=== PATIENT | female | born 1970 | race Caucasian/White ===

== ENCOUNTER 2016-10-26 08:49 | Emergency (ER) | payer OTHER ==
[~2016-10-26] VITALS: Ht 162.6 cm; Wt 82.1 kg
[~2016-10-26 08:49] MED LIST: DIFLUCAN150 M1 PO; DILAUDID2 M1 PO; INVOKAMET 50-11 EACH PO; LEVSIN-SL0.125 MG SL; METHYLPREDNISOLO4 M2 PO; PERCOCET 5-3251 EACH PO; ZOFRAN ODT4 M1 SL
--- NOTE | 2016-10-26 09:07 | ED INFLUENZA/URI COMPLAINT ---
History of Present Illness General Chief Complaint: Upper Respiratory Sx/Fever Stated Complaint: NO RELIEF OF BRONCHITIS Source: patient Exam Limitations: no limitations Vital Signs & Intake/Output Vital Signs & Intake/Output Vital Signs Date Time Temp Pulse Resp B/P B/P Pulse O2 O2 Flow FiO2 Mean Ox Delivery Rate 10/26 1604 98.3 89 15 124/74 100 Room Air ED Intake and Output 10/27 0000 0505 1200 Intake Total Output Total Balance Patient 181 lb Weight Allergies Coded Allergies: Benzodiazepines (Severe, SHAKES 10/26/16) metoclopramide (From REGLAN) (Severe, TREMORS 11/30/15) cefuroxime (From CEFTIN) (SHAKES 10/26/16) ciprofloxacin (From CIPRO) (SHAKES 10/26/16) clonazepam (From KLONOPIN) (UNKNOWN 11/30/15) codeine (SHAKES 10/26/16) promethazine (SHAKES 10/26/16) tetanus and diphtheria toxoids (tetanus & diphtheria toxoids) (LOCAL REACTION TO SITE/SWELLING 11/30/15) prochlorperazine (From Compazine) (Severe, UNABLE TO KEEP STILL/HIGH ANXIETY 02/06) meperidine (From Demerol) (ANXIETY 11/30/15) Uncoded Allergies: INHALERS (Severe, SHAKES 10/26/16) CHERRITUSSIN (SHAKES 10/26/16) Reconcile Medications Canagliflozin (Invokana) 300 MG TABLET 1 TAB PO DAILY DIABETES (Reported) Hydromorphone HCl (Dilaudid) 2 MG TABLET 1 TAB PO BIDP PRN pain Mometasone Furoate (Nasonex) 50 MCG SPRAY.PUMP 2 SPRAY NASB DAILY congestion Prednisone 20 MG TABLET 1 TAB PO BID STEROID (Reported) Triage Note: PT STATES THAT SHE HAS HAD COUGH AND BODY ACHES FOR OVER 18 DAYS WAS ON AUGMENTIN FOR 14 DAYS AND IT DIDN'T HELP , WENT BACK TO WALK IN AND THEY STARTED HER ON PREDNISONE. PT STATES THAT SHE JUST DOES NOT FEEL BETTER Triage Nurses Notes Reviewed? yes Onset: Gradual Duration: week(s): (2) Timing: remote history Severity: moderate Severity Numbers: 8 Prior Episodes/Possible Cause: occassional episodes No Modifying Factors: none Associated Symptoms: cough HPI: Patient is a 46-year-old female with history of diabetes, poorly controlled, presenting to the emergency department with chief complaint of upper respiratory congestion, intermittently productive cough of green-yellow sputum has been going on for the past 18 days. She reports that she initially saw one of her physicians who prescribed her a course of Augmentin for 10 days. Symptoms did not improve so she then followed up with a walk-in clinic who put her on another 14 day course of Augmentin. She did not have any breaks in between these 2 courses of antibiotics. Patient denying any nausea or vomiting. No diarrhea. Denies abdominal pain. She reports that her family told her that she was confused last night. Denies any falls. No visual changes. She also reports urge incontinence that has been going on for the past several days. No sick contacts or recent travel. She went back to the urgent care over the past couple days and they put her on some steroids this week. No relief in her symptoms. Still coughing. Positive malaise. Reports tactile funerals and chills. No headaches. (ADAMA ARNDT) Past History Travel History Traveled to [place] past 21 day No Medical History Any Pertinent Medical History? 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 No (ADAMA ARNDT) Review of Systems Review of Systems Constitutional: Reports: chills, fever, malaise. Comments Review of systems: See HPI, All other systems negative. Constitutional, no weight loss HEENT: No visual changes Cardiovascular: No chest pain ,palpitation , orthopnea or ankle swelling Skin, no jaundice no rashes Respiratory: No dyspnea or hemoptysis GI: No nausea no vomiting : No dysuria No hematuria Muscle skeletal: no back pain, no neck pain, Neurologic: No numbness no headaches Psych: No stress anxiety or depression,. Heme/endocrine: No bruising no bleeding no polyuria or polydipsia Immunology: No splenectomy or history of AIDS (ADAMA ARNDT) Physical Exam Physical Exam General Appearance: well developed/nourished, no apparent distress, alert, awake , comfortable Ears, Nose, Throat: nasal congestion Comments: Well-developed well-nourished person in no acute distress HEENT: extraocular motion intact, no nystagmus. Pupils equally round and reactive to light and accommodation. Nose is atraumatic. External auditory canal and Tympanic membranes clear. Pharynx is mildly erythematous, clear nasal discharge bilaterally.. No swelling or edema. Neck: Supple, no lymphadenopathy, normal range of motion without pain or tenderness Back: Nontender, no CVA tenderness. Cardiovascular: Regular rate and rhythms no murmurs rubs or gallops, normal JVP Respiratory: Chest nontender. No respiratory distress.mild wheezing to auscultation bilaterally on the anterior lung person. Diminished on the posterior lung person. Abdomen: Soft, nontender nondistended, no appreciable organomegaly. Normal bowel sounds. No ascites Extremity: No edema, no calf tenderness to palpation, normal and equal pulses. Neuro: Alert oriented x3, motor sensory normal, cranial nerves II through XII grossly intact. Cerebellar testing is unremarkable. Skin: No appreciable rash on exposed skin, skin is warm and dry. Psych: Mood and affect is normal, memory and judgment is normal. Core Measures Severe Sepsis Present: No Septic Shock Present: No (ADAMA ARNDT) Progress Differential Diagnosis: influenza, pneumonia, pharyngitis, sinusitis, DKA, ELECTROLYTE ABNORMALITY, DEHYDRATION, UNCONTROLLED DIABETES Plan of Care: Orders Procedure Date/time Status BASIC METABOLIC PANEL 10/26 1327 Complete Laboratory Tests 10/26/16 1402: Anion Gap 13, Estimated GFR > 60, BUN/Creatinine Ratio 20.0, Glucose 140 H, Calcium 8.6 Diagnostic Imaging: Viewed by Me: Radiology Read. Discussed w/RAD: Radiology Read. CXR Impression: no acute abnormality, no infiltrates, normal size heart, normal mediastinum Initial ED EKG: none Comments: Patient likely having urinary symptoms secondary to spilling glucose into the urine. Uncontrolled diabetes. Patient medicated with fluids on arrival. She does have a positive acetone with a small anion gap. Patient is well-appearing otherwise. She reports that she has several doctors that she follows up with. On repeat evaluation patient feeling much better. Repeat BMP shows there is no longer in anion gap. Patient requesting several doses of pain medication for chronic pain. She also reports the pain medication helps with her sinus pain. Patient will be sent home, she'll follow with a primary care physician, educated on increasing fluids. She was prescribed a steroid nasal spray along with Dilaudid, limited prescription for pain. She'll return for worsening symptoms or concerns. Dr. Mcrae saw and EVALUATE THE PATIENT WELL AND IS AGREEABLE TO PLAN. (ADAMA ARNDT) Departure Departure Time of Disposition: 150 Disposition: HOME OR SELF CARE Condition: Stable Clinical Impression Primary Impression: Sinusitis Qualifiers: Sinusitis location: unspecified location Chronicity: subacute Qualified Code: J01.90 - Acute sinusitis, unspecified Secondary Impressions: Uncontrolled diabetes mellitus Qualifiers: Diabetes mellitus type: other specified (including [place]) Diabetes mellitus complication status: with unspecified complications Diabetes mellitus intermediate card tender insulin use: unspecified care home insulin use status Qualified Codes: E13.8 - Other specified diabetes mellitus with unspecified complications; E13.65 - Other specified diabetes mellitus with hyperglycemia Referrals: RONIT KANG MD (PCP/Family) Additional Instructions: Follow-up with your primary care physician call to make an appointment. Increase fluids. Take Nasonex as prescribed help with congestion. Take daily allergy medication [id number]. Continue diabetic medication. follow with her primary care physician. Return for worsening symptoms or concerns. Departure Forms: Customer Survey General Discharge Information Prescriptions: Current Visit Scripts Hydromorphone HCl (Dilaudid) 1 TAB PO BIDP PRN pain #10 TAB Mometasone Furoate (Nasonex) 2 SPRAY NASB DAILY #1 INHAL (ADAMA ARNDT) PA/SOAP DRIER TENDER Co-Sign Statement Statement: ED Attending supervision documentation- [X] I saw and evaluated the patient. I have also reviewed all the pertinent lab results and diagnostic results. I agree with the findings and the plan of care as documented in the PA's/SOAP DRIER TENDER's documentation. [X] I have reviewed the ED Record and agree with the PA's/SOAP DRIER TENDER's documentation. [] Additions or exceptions (if any) to the PAs/SOAP DRIER TENDER's note and plan are summarized below: [] (STACY ASTUDILLO,BRENDEN) Current Visit Scripts Hydromorphone HCl (Dilaudid) 1 TAB PO BIDP PRN pain #10 TAB Mometasone Furoate (Nasonex) 2 SPRAY NASB DAILY #1 INHAL
[2016-10-26] MEDS ORDERED: PREDNISONE20 M1 PO (09:58)
[2016-10-26] MEDS ORDERED: INVOKANA300 M1 PO (10:02)
[2016-10-26 10:33] LABS: ABSOLUTE BASOPHIL COUNT 0 /CUMM (0.0-0.2); ABSOLUTE EOSINOPHIL COUNT 0 /CUMM (0.0-0.7); ABSOLUTE GRANULOCYTE CT 8.8 /CUMM (1.4-6.5); ABSOLUTE LYMPH COUNT 1.1 /CUMM (1.2-3.4); ABSOLUTE MONOCYTE COUNT 0.8 /CUMM (0.10-0.60); BASOPHIL % 0.3 % (0.0-2.0); EOSINOPHIL % 0.1 % (0-5); GRANULOCYTE % 81.8 % (42.2-75.2); HEMATOCRIT 41.4 % (37-47); MEAN CORPUSCULAR HGB 27.9 PG (27.0-31.0); MEAN CORPUSCULAR HGB CONC 34.1 G/DL (33.0-37.0); MEAN PLATELET VOLUME 8.4 FL (7.4-10.4); PLATELET COUNT 352 /CUMM (130-400); RBC DISTRIBUTION WIDTH 13.6 % (11.5-14.5); RED BLOOD CELL CT 5.05 /CUMM (4.20-5.40); WHITE BLOOD CELL COUNT 10.7 /CUMM (4.8-10.8)
--- NOTE | 2016-10-26 11:36 | RADIOLOGY REPORT ---
EXAMINATION: XR CHEST CLINICAL INFORMATION: Cough. COMPARISON: None TECHNIQUE: 2 views of the chest were obtained. FINDINGS: Lungs are well expanded and clear. The trachea is midline position. Cardiac silhouette is normal in size. The mediastinal and hilar contours are normal. There is no pneumothorax or pleural effusion. There is mild dextrocurvature of the degenerated thoracic spine. IMPRESSION: No evidence of pneumonia. No acute cardiopulmonary findings.
[2016-10-26] MEDS ORDERED: DILAUDID2 M1 PO (15:23)
[2016-10-26] MEDS ORDERED: NASONEX17 GM NASB (15:23)
[2016-10-26 16:04] VITALS: BP 124/74
[2016-10-27] MEDS ORDERED: DILAUDID2 M1 PO (16:56)
[2016-10-27] MEDS ORDERED: ZOFRAN ODT4 M1 SL (16:59)
== END 2016-10-26 16:07 ==
LOC: ERH 08:49
PROVIDERS: Physician Assistant
DX: J32.9 Chronic sinusitis, unspecified (principal); E11.9 Type 2 diabetes mellitus without complications
CPT/HCPCS: 81003; 81025; 96360; 96372; 96374; 96376; J1815

== ENCOUNTER 2016-10-27 09:33 | Emergency (ER) | payer OTHER ==
[~2016-10-27] VITALS: Ht 165.1 cm; Wt 82.1 kg
[~2016-10-27 09:33] MED LIST changes: +INVOKANA300 M1 PO; +NASONEX17 GM NASB; +PREDNISONE20 M1 PO
[2016-10-27 12:32] LABS: ABSOLUTE BASOPHIL COUNT 0.1 /CUMM (0.0-0.2); ABSOLUTE EOSINOPHIL COUNT 0.2 /CUMM (0.0-0.7); ABSOLUTE GRANULOCYTE CT 4.4 /CUMM (1.4-6.5); ABSOLUTE LYMPH COUNT 2.4 /CUMM (1.2-3.4); ABSOLUTE MONOCYTE COUNT 1.2 /CUMM (0.10-0.60); BASOPHIL % 0.6 % (0.0-2.0); EOSINOPHIL % 2.9 % (0-5); GRANULOCYTE % 53.6 % (42.2-75.2); MEAN CORPUSCULAR HGB 27.9 PG (27.0-31.0); MEAN CORPUSCULAR HGB CONC 33.6 G/DL (33.0-37.0); MEAN PLATELET VOLUME 8.7 FL (7.4-10.4); PLATELET COUNT 300 /CUMM (130-400); RBC DISTRIBUTION WIDTH 13.4 % (11.5-14.5); WHITE BLOOD CELL COUNT 8.3 /CUMM (4.8-10.8)
--- NOTE | 2016-10-27 13:39 | ED GI/GU/ABDOMINAL COMPLAINT ---
History of Present Illness General Chief Complaint: Abdominal Pain/Flank Pain Stated Complaint: SEEN HERE YESTERDAY/ STILL NOT FEELING WELL ABD PA Source: patient Exam Limitations: no limitations Allergies Coded Allergies: Benzodiazepines (Severe, SHAKES 10/26/16) metoclopramide (From REGLAN) (Severe, TREMORS, SI, FEELING LIKE SHE WANTED TO CUT HER SKIN & RUN 10/27/16) albuterol (SHAKES 10/27/16) cefuroxime (From CEFTIN) (SHAKES 10/26/16) ciprofloxacin (From CIPRO) (SHAKES 10/26/16) clonazepam (From KLONOPIN) (SHAKES 10/27/16) codeine ([facility] 10/26/16) guaifenesin (From CHERATUSSIN AC) ([facility] 10/27/16) promethazine ([facility] 10/26/16) tetanus and diphtheria toxoids (tetanus & diphtheria toxoids) (LOCAL REACTION TO SITE/SWELLING 11/30/15) prochlorperazine (From Compazine) (Severe, UNABLE TO KEEP STILL/HIGH ANXIETY 02/06) meperidine (From Demerol) (ANXIETY 11/30/15) Triage Note: TRIAGE:l 46 Y/O FEMALE RETURNS TODAY AFTER EVAL HERE YESTERDAY. DIAGNOSED WITH KETOACIDOSIS. REPORTS PAIN 50/10 - STABBING LIKE LAST NIGHT. "MY PANCREAS HURTS, TOO." HISTORY OF DIABETES "FROM THE IN VITRO". AFEBRILE IN TRIAGE. Triage Nurses Notes Reviewed? yes ? N Is pt currently ? No HPI: This patient is a 46-year-old female with past medical history including diabetes who presented to the emergency department today for evaluation of back pain and abdominal pain. This patient was seen here in the emergency department yesterday and diagnosed with diabetic ketoacidosis. She was ultimately sent home. The patient reported that she took the prescribed Dilaudid tablets before she went to bed last night. The patient reported that she had excruciating, "50 out of 10," pain to her lower back which woke her up out of sleep. The pain is located across her lumbar spine and radiates up to her thoracic region. The pain or straight through to her abdomen to the region of the umbilicus. She reported that sometimes the pain moves over to the upper left quadrant. She reported nausea, but no vomiting. The patient also reported that she did notice some blood in her urine this morning. The patient denied any fevers or chills. No chest pain or difficulty breathing. The patient reported that years ago she was diagnosed with a cyst on her right ovary that was, "the size of a grapefruit." This was found incidentally on MRI. She was told to follow up with her TOLL GATE TENDER, but when they didn't ultrasound, they did not see anything. The patient also had a tubal ligation reversal done on the right. She reported that she does have chronic pain in this right groin region. (AMALIA CORDOVA,LAURENCE) Vital Signs & Intake/Output Vital Signs & Intake/Output Vital Signs Date Time Temp Pulse Resp B/P B/P Pulse O2 O2 Flow FiO2 Mean Ox Delivery Rate 10/27 1622 98.3 88 16 136/78 95 Room Air ED Intake and Output 10/28 0000 10/27 1200 Intake Total 1000 Output Total Balance 1000 Intake, IV 1000 Patient 181 lb Weight Weight Reported by Patient Measurement Method Reconcile Medications Canagliflozin (Invokana) 300 MG TABLET 1 TAB PO DAILY DIABETES (Reported) Hydromorphone HCl (Dilaudid) 2 MG TABLET 1 TAB PO BIDP PRN pain Hydromorphone HCl (Dilaudid) 2 MG TABLET 1 TAB PO BIDP PRN pain Mometasone Furoate (Nasonex) 50 MCG SPRAY.PUMP 2 SPRAY NASB DAILY congestion Ondansetron (Zofran Odt) 4 MG TAB.RAPDIS 1 TAB SL TID PRN nausea Prednisone 20 MG TABLET 1 TAB PO BID STEROID (Reported) (ZULEIKA JOHNSON MD) Past History Travel History Traveled to [place] past 21 day No Medical History Any Pertinent Medical History? 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 No (LAURENCE HOLLAND PA-C) Review of Systems Review of Systems Constitutional: Reports: no symptoms. EENTM: Reports: no symptoms. Respiratory: Reports: no symptoms. Cardiovascular: Reports: no symptoms. GI: Reports: see HPI. Genitourinary: Reports: see HPI. Musculoskeletal: Reports: no symptoms. Skin: Reports: no symptoms. Neurological/Psychological: Reports: no symptoms. All Other Systems: Reviewed and Negative (LAURENCE HOLLAND PA-C) Physical Exam Physical Exam Gastrointestinal: normal bowel sounds, soft, no organomegaly, NONDISTENDED. tENDERNESS TO PALPATION IN THE EPIGASTRIC REGION AND LEFT UPPER QUADRANT. nEGATIVE [place] SIGN. NO mCbURNEY'S POINT TENDERNESS. nEGATIVE rOVSING SIGN. nO MASSES OR HERNIAS APPRECIATED Comments: Well-developed well-nourished person in no acute distress HEENT: Normal EENT exam, head normocephalic, moist mucous membranes Pupils equally round and reactive to light. Neck: Supple, no lymphadenopathy Back: Normal inspection. Bilateral CVA tenderness. No midline tenderness Cardiovascular: Regular rate and rhythm with no murmurs, rubs, or gallops Respiratory: No respiratory distress. Breath sounds clear to auscultation bilaterally with no wheezes, rales, rhonchi Extremity: Nnormal and equal pulses. Neuro: Alert oriented x3, cranial nerves II through XII grossly intact. Skin: No appreciable rash on exposed skin, skin is warm and dry. Psych: Mood and affect is normal Core Measures ACS in differential dx? No Severe Sepsis Present: No Septic Shock Present: No (LAURENCE HOLLAND PA-C) Progress Differential Diagnosis: AAA, AMI, appendicitis, biliary colic, bowel obstruction , colon cancer, cholecystitis, diverticulitis, ectopic , endometritis, gastritis, hepatitis, ischemic bowel, inflamm bowel dis, intrauterine , kidney stone, ovarian cyst, ovarian torsion, pancreatitis, PID/cervicitis, PUD/ GERD, perforated viscous, threatened AB, UTI/pyelo Plan of Care: Orders Procedure Date/time Status DIRECT BILIRUBIN 10/27 1204 Complete AMYLASE 10/27 1204 Complete CULTURE,URINE 10/27 1147 Active URINE 10/27 1147 Complete URINE DRUG SCREEN FOR ER ONLY 10/27 1043 Complete URINALYSIS 10/27 1043 Complete SERUM OSMOLALITY 10/27 1043 Complete LIPASE 10/27 1043 Complete COMPREHENSIVE METABOLIC PANEL 10/27 1043 Complete CBC WITHOUT DIFFERENTIAL 10/27 1043 Complete ACETONE 10/27 1043 Complete Laboratory Tests 10/27/16 1204: Direct Bilirubin Cancelled, Amylase Cancelled 10/27/16 1204: Anion Gap 13, Estimated GFR > 60, BUN/Creatinine Ratio 16.0, Glucose 154 H, Serum Osmolality 289, Calcium 8.7, Total Bilirubin 0.6, Direct Bilirubin 0.3, AST 62 H, ALT 62 H, Alkaline Phosphatase 148 H, Total Protein 6.8, Albumin 3.7, Globulin 3.1, Albumin/Globulin Ratio 1.2, Amylase 39, Lipase 55, CBC w Diff NO MAN DIFF REQ, RBC 4.70, MCV 83.0, MCH 27.9, RDW 13.4, MPV 8.7, Gran % 53.6, Lymphocytes % 28.5, Monocytes % 14.4 H, Eosinophils % 2.9, Basophils % 0.6, Absolute Granulocytes 4.4, Absolute Lymphocytes 2.4, Absolute Monocytes 1.2 H, Absolute Eosinophils 0.2, Absolute Basophils 0.1, PUBS MCHC 33.6, Acetone Level NEGATIVE 10/27/16 1132: Urine Test NEGATIVE 10/27/16 1132: Urine Opiates Screen 1245.00, Methadone Screen < 40, Barbiturate Screen < 60, Ur Phencyclidine Scrn < 6.00, Amphetamines Screen < 100, U Benzodiazepines Scrn < 85, Urine Cocaine Screen < 50, Urine Cannabis Screen < 5.00, Urine Color YEL, Urine Clarity CLEAR, Urine pH 6.0, Ur Specific Kirby 1.020, Urine Protein NEG, Urine Ketones 40 H, Urine Nitrite NEG, Urine Bilirubin NEG, Urine Urobilinogen 0.2, Ur Leukocyte Esterase NEG, Ur Microscopic SEDIMENT EXAMINED, Urine RBC 15- 25 H, Urine WBC RARE, Ur Epithelial Cells FEW, Urine Hemoglobin MOD H, Urine Glucose >=1000 H Microbiology 10/27 1147 URINE ROUT: Urine Culture - RECD Diagnostic Imaging: Viewed by Me: CT Scan. Discussed w/RAD: CT Scan. Radiology Impression: PATIENT: KASHMIR MARTÍNEZ PRESENT AGE: 46 PATIENT ACCOUNT NO: [id number] : 68 LOCATION: [facility] ORDERING PHYSICIAN: LAURENCE HOLLAND PA-C SERVICE DATE: 10/27/16 EXAM TYPE: CAT - CT ABD & PELVIS W IV CONTRAST EXAMINATION: CT ABDOMEN AND PELVIS WITH CONTRAST CLINICAL INFORMATION: Right-sided pelvic mass. COMPARISON: Previous CT scans most recent November 2015. TECHNIQUE: Multidetector volumetric imaging was performed of the abdomen and pelvis before and after the IV administration of 94 mL of Optiray 320 intravenous contrast. Sagittal and coronal reformatted images were obtained on the technologist's workstation. DLP: 985 mGy-cm FINDINGS: LUNG BASES: The visualized lung bases are unremarkable. LIVER, GALLBLADDER, AND BILIARY TREE: The liver is normal in size, shape, and attenuation. There is a small 4 mm low-attenuation lesion in the lateral segment of the left lobe of the liver, axial image 30 series 2. This is stable from previous exams and therefore probably benign. No other focal liver lesion is seen. No intrahepatic or extrahepatic biliary duct dilatation is seen. The gallbladder has been removed. PANCREAS: Unremarkable. SPLEEN: Unremarkable. ADRENAL GLANDS: Unremarkable. KIDNEYS AND URETERS: The kidneys are normal in size, shape, and attenuation. No hydronephrosis, hydroureter, or calculi seen. No perinephric stranding. BLADDER: Unremarkable. GASTROINTESTINAL TRACT: The small and large bowel are unremarkable. The appendix is unremarkable. ABDOMINAL WALL: There is a small umbilical hernia containing fat. There is diastasis of the lower rectus muscles anterior to the bladder. LYMPH NODES: No enlarged lymph nodes are seen. There is no ascites. VASCULAR: The abdominal aorta is normal in caliber. PELVIC VISCERA: The uterus is located to the right of midline. This is similar to previous exams. No pelvic mass is seen. OSSEOUS STRUCTURES: Unremarkable. IMPRESSION: No pelvic mass seen. The uterus is located to the right of midline. This is similar to previous exams. DICTATED BY: TAMEKA BANDA MD DATE/TIME DICTATED:10/27/161530 CELL EFFICIENCY SUPERVISOR:SARAH DATE/ TIME TRANSCRIBED:10/27/161530 CONFIDENTIAL, DO NOT COPY WITHOUT APPROPRIATE AUTHORIZATION. <Electronically signed in Other Vendor System> SIGNED BY: TAMEKA BANDA MD 10/27/16 1558 Initial ED EKG: none (AMALIA CORDOVA,LAURENCE) Departure Departure Disposition: HOME OR SELF CARE Condition: Stable Clinical Impression Primary Impression: Abdominal pain Qualifiers: Abdominal location: generalized Qualified Code: R10.84 - Generalized abdominal pain Referrals: WALE ASTUDILLO,JACI DUGGAN MD,GERALDO KANG MD,[place] (PCP/Family) Additional Instructions: Take medication for pain as prescribed. Please rest and stay hydrated. Follow- up with the card player whose information has been provided to you in this packet. You have also been given the name of a urologist should you need follow-up. Return for any worsening symptoms or concerns. Departure Forms: Customer Survey General Discharge Information Prescriptions: Current Visit Scripts Hydromorphone HCl (Dilaudid) 1 TAB PO BIDP PRN pain #4 TAB Ondansetron (Zofran Odt) 1 TAB SL TID PRN nausea #10 TAB (LAURENCE HOLLAND PA-C) PA/RESIDENTIAL SALES MANAGER Co-Sign Statement Statement: ED Attending supervision documentation- I saw and evaluated the patient. I have also reviewed all the pertinent lab results and diagnostic results. I agree with the findings and the plan of care as documented in the PA's/RESIDENTIAL SALES MANAGER's documentation. X I have reviewed the ED Record and agree with the PA's/RESIDENTIAL SALES MANAGER's documentation. [] Additions or exceptions (if any) to the PAs/RESIDENTIAL SALES MANAGER's note and plan are summarized below: [] (ELIZABETH ASTUDILLO,ZULEIKA)
--- NOTE | 2016-10-27 15:58 | CT SCAN REPORT ---
EXAMINATION: CT ABDOMEN AND PELVIS WITH CONTRAST CLINICAL INFORMATION: Right-sided pelvic mass. COMPARISON: Previous CT scans most recent November 2015. TECHNIQUE: Multidetector volumetric imaging was performed of the abdomen and pelvis before and after the IV administration of 94 mL of Optiray 320 intravenous contrast. Sagittal and coronal reformatted images were obtained on the technologist's workstation. DLP: 985 mGy-cm FINDINGS: LUNG BASES: The visualized lung bases are unremarkable. LIVER, GALLBLADDER, AND BILIARY TREE: The liver is normal in size, shape, and attenuation. There is a small 4 mm low-attenuation lesion in the lateral segment of the left lobe of the liver, axial image 30 series 2. This is stable from previous exams and therefore probably benign. No other focal liver lesion is seen. No intrahepatic or extrahepatic biliary duct dilatation is seen. The gallbladder has been removed. PANCREAS: Unremarkable. SPLEEN: Unremarkable. ADRENAL GLANDS: Unremarkable. KIDNEYS AND URETERS: The kidneys are normal in size, shape, and attenuation. No hydronephrosis, hydroureter, or calculi seen. No perinephric stranding. BLADDER: Unremarkable. GASTROINTESTINAL TRACT: The small and large bowel are unremarkable. The appendix is unremarkable. ABDOMINAL WALL: There is a small umbilical hernia containing fat. There is diastasis of the lower rectus muscles anterior to the bladder. LYMPH NODES: No enlarged lymph nodes are seen. There is no ascites. VASCULAR: The abdominal aorta is normal in caliber. PELVIC VISCERA: The uterus is located to the right of midline. This is similar to previous exams. No pelvic mass is seen. OSSEOUS STRUCTURES: Unremarkable. IMPRESSION: No pelvic mass seen. The uterus is located to the right of midline. This is similar to previous exams.
[2016-10-27 16:22] VITALS: BP 136/78
[2016-10-27] MEDS ORDERED: DILAUDID2 M1 PO (16:56)
[2016-10-27] MEDS ORDERED: ZOFRAN ODT4 M1 SL (16:59)
== END 2016-10-27 17:13 ==
LOC: ERH 09:33
PROVIDERS: Physician Assistant
DX: R10.13 Epigastric pain (principal); R10.12 Left upper quadrant pain; M54.9 Dorsalgia, unspecified
CPT/HCPCS: 74177; 80307; 81001; 81025; 87086; 96374; 96375; 96376; J2405

== ENCOUNTER 2016-12-12 09:46 | Emergency (ER) | payer OTHER ==
[~2016-12-12] VITALS: Ht 165.1 cm; Wt 83.9 kg
--- NOTE | 2016-12-12 10:11 | ED GENERAL ADULT ---
History of Present Illness General Chief Complaint: Lower Extremity Problems Stated Complaint: SWOLLEN FEET X 3 WEEKS,PAIN IN LEGS,CP Source: patient, old records Exam Limitations: no limitations Vital Signs & Intake/Output Vital Signs & Intake/Output ED Intake and Output 12/13 0000 12/12 1200 Intake Total 0 Output Total Balance 0 Intake, Oral 0 Patient 185 lb Weight Weight Reported by Patient Measurement Method Allergies Coded Allergies: Benzodiazepines (Severe, SHAKES 10/26/16) chlorzoxazone (From LORZONE) (Severe, RESTLESSNESS 12/12/16) cyclobenzaprine (From FLEXERIL) (Severe, RESTLESSNESS 12/12/16) metoclopramide (From REGLAN) (Severe, TREMORS, SI, FEELING LIKE SHE WANTED TO CUT HER SKIN & RUN 10/27/16) carisoprodol (From SOMA) (Intermediate, RESTLESSNESS 12/12/16) albuterol (SHAKES 10/27/16) cefuroxime (From CEFTIN) (SHAKES 10/26/16) ciprofloxacin (From CIPRO) (SHAKES 10/26/16) clonazepam (From KLONOPIN) (SHAKES 10/27/16) codeine (SHAKES 10/26/16) guaifenesin (From CHERATUSSIN AC) (SHAKES 10/27/16) promethazine (SHAKES 10/26/16) tetanus and diphtheria toxoids (tetanus & diphtheria toxoids) (LOCAL REACTION TO SITE/SWELLING 11/30/15) prochlorperazine (From Compazine) (Severe, UNABLE TO KEEP STILL/HIGH ANXIETY 02/06) meperidine (From Demerol) (ANXIETY 11/30/15) Reconcile Medications Canagliflozin (Invokana) 300 MG TABLET 1 TAB PO DAILY DIABETES (Reported) Hydromorphone HCl (Dilaudid) 2 MG TABLET 1 TAB PO BIDP PRN pain Hydromorphone HCl (Dilaudid) 2 MG TABLET 1 TAB PO BIDP PRN pain Insulin Aspart, Recombinant (Novolog Flexpen) (Unknown Strength) INSULN.PEN ( Unknown Dose) SC SEE SLIDING SCALE DIABETES (Reported) Insulin Degludec (Tresiba Flextouch U-200) 200 UNIT/ML (3 ML) INSULN.PEN 30 U SC QPM DIABETES (Reported) Mometasone Furoate (Nasonex) 50 MCG SPRAY.PUMP 2 SPRAY NASB DAILY congestion Ondansetron (Zofran Odt) 4 MG TAB.RAPDIS 1 TAB SL TID PRN nausea Oxycodone HCl/Acetaminophen (Oxycodone-Acetaminophen 5-325) 5 MG-325 MG TABLET 1 TAB PO BIDP PRN PAIN (Reported) Prednisone 20 MG TABLET 1 TAB PO BID STEROID (Reported) Triage Note: PT TO ED FOR MULTIPLE COMPLAINTS: HEADACHE, BILATERAL LEG SWELLING, CONFUSION, INTERMITTENT WEAKNESS, R ARM INTERMITTENT NUMBNESS, WORSENING CHRONIC PAIN, RADIATING CALF PAIN AND "MY BACK PAIN ISN'T CONTROLLED WITH MY PERCOCET AND I DIDN'T TAKE ANYTHING TODAY BECAUSE I KNEW I WOULD GET PAIN MEDS HERE" Triage Nurses Notes Reviewed? yes Onset: Gradual Duration: week(s): (3), constant Timing: recent history Injury Environment: home Severity: moderate, severe Severity Numbers: 8 No Modifying Factors: none Associated Symptoms: denies HPI: 46 Year old female with history of diabetes presents to ER for evaluation complain multiple complaints. She states for the past 3 weeks she has had bilateral feet swelling associated with aching dull pain radiating into her calfs, chest pain dyspnea with exertion headaches dizziness. She initially saw her primary care physician within the symptoms began who told her it was not neuropathy. She has been keeping them elevated however states that nothing is helping with the swelling. She has been on diuretics in the past however states did not help. No recent travel or immobility no rashes to her legs no fever no chills. The patient is prescribed Percocet which she states she does not like to take for her chronic back pain. She states the only thing that has helped her in the past with this exacerbation is Dilaudid (ELIDA VICTORIA) Past History Travel History Traveled to [place] past 21 day No Medical History Any Pertinent Medical History? 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 No (ELIDA VICTORIA) Review of Systems Review of Systems Constitutional: Reports: see HPI. All Other Systems: Reviewed and Negative Comments Review of systems: See HPI, All other systems negative. Constitutional, no chills no fever, no malaise HEENT: No visual changes no sore throat no congestion Cardiovascular: No chest pain , no palpitation Skin: no rashes, no change in skin Respiratory: No dyspnea no cough no sputum GI: No nausea no vomiting, no diarrhea, : No dysuria Muscle skeletal: No joint pain, no joint swelling, no back pain, no neck pain, Neurologic: No numbness no headache Psych: No stress Heme/endocrine: No bruising Immunology: No lymphadenopathy (ELIDA VICTORIA) Physical Exam Physical Exam General Appearance: well developed/nourished, no apparent distress, alert, awake Comments: Well-developed well-nourished person in no acute distress HEENT: Normal EENT exam; PERRL, EOMI, HEAD is atraumatic. moist mucous membranes. Neck: Supple,, normal range of motion Back: Nontender, ull range of motion Cardiovascular: Regular rate and rhythms no murmurs rubs Respiratory: No respiratory distress. Patient speaking in full complete sentences. Breath sounds clear to auscultation bilaterally: NO W/R/R Abdomen: Soft, nontender nondistended, no appreciable organomegaly. Normal bowel sounds. No rebound/guarding, No ascites. Extremity: No edema, neg homans, sign, no ecchymosis, full range of motion of extremities, normal and equal pulses bilaterally, 5 out of 5 strength noted to bilateral upper and lower extremities Neuro: Alert oriented x3, motor sensory normal, There were no obvious focal neurologic abnormalities. Skin: No appreciable rash on exposed skin, skin is warm and dry. Psych: Mood and affect is normal, memory and judgment is normal. Core Measures ACS in differential dx? No CVA/TIA Diagnosis: No Severe Sepsis Present: No Septic Shock Present: No (ELIDA VICTORIA) Progress Differential Diagnoses I considered the following diagnoses in my evaluation of the patient: depedent edema, dvt, ken, dehydration, chf, Plan of Care: Orders Procedure Date/time Status Consistent Carbohydrate 1 12/12 D Active COMPREHENSIVE METABOLIC PANEL 12/12 1043 Complete CBC WITHOUT DIFFERENTIAL 12/12 1043 Complete B-TYPE NATRIURETIC PEP (BNP) 12/12 1043 Complete EKG 12/12 0947 Active Laboratory Tests 12/12/16 1101: Anion Gap 11, Estimated GFR > 60, BUN/Creatinine Ratio 8.0, Glucose 64 L, Calcium 9.3, Total Bilirubin 0.5, AST 52 H, ALT 49, Alkaline Phosphatase 128 H , [id number] Pept 135 H, Total Protein 6.8, Albumin 3.7, Globulin 3.1, Albumin/Globulin Ratio 1.2, CBC w Diff NO MAN DIFF REQ, RBC 4.39, MCV 83.8, MCH 27.5, RDW 13.7, MPV 7.6, Gran % 42.5, Lymphocytes % 43.4, Monocytes % 11.1 H, Eosinophils % 2.3, Basophils % 0.7, Absolute Granulocytes 3.5, Absolute Lymphocytes 3.6 H, Absolute Monocytes 0.9 H, Absolute Eosinophils 0.2, Absolute Basophils 0.1, PUBS MCHC 32.8 L Patient clinically appears well she is ambulatory to room 9 with steady gait in no apparent distress labs ordered case discussed with Dr. Mcrae. Symptoms at this time are not consistent with DVT advise close follow-up with her primary care I discussed with the patient at length all of their results. I had an extensive conversation regarding need for close follow up with their primary care physician this week as well as return precautions. I answered all of their questions, they feel comfortable with the plan and follow-up care. The patient is declining any medications to go home with advise she continue taking her Percocet as prescribed follow up with her primary care (ELIDA VICTORIA) Initial ED EKG: normal intervals, normal p-waves, normal QRS complex, normal sinus rhythm (ELIDA VICTORIA) Departure Departure Time of Disposition: 1143 Disposition: HOME OR SELF CARE Condition: Stable Clinical Impression Primary Impression: Dependent edema Referrals: RONIT KANG MD (PCP/Family) Additional Instructions: follow up with your pmd this week. keep legs elevated. take your pain medication as prescribed. return with any concerns Departure Forms: Customer Survey General Discharge Information (ELIDA VICTORIA) PA/BUSINESS TRANSFORMATION ANALYST Co-Sign Statement Statement: ED Attending supervision documentation- [] I saw and evaluated the patient. I have also reviewed all the pertinent lab results and diagnostic results. I agree with the findings and the plan of care as documented in the PA's/BUSINESS TRANSFORMATION ANALYST's documentation. [X] I have reviewed the ED Record and agree with the PA's/BUSINESS TRANSFORMATION ANALYST's documentation. [] Additions or exceptions (if any) to the PAs/BUSINESS TRANSFORMATION ANALYST's note and plan are summarized below: [] (STACY ASTUDILLO,BRENDEN) Critical Care Note Critical Care Note Critical Care Time: non-applicable (TAI VILLALOBOS,ELIDA)
[2016-12-12] MEDS ORDERED: TRESIBA FL200 UNIT/1 SC (10:25)
[2016-12-12] MEDS ORDERED: NOVOLOG FL100 UNIT/1 SC (10:26)
[2016-12-12] MEDS ORDERED: OXYCODONE-ACET1 EACH PO (10:28)
[2016-12-12 11:08] LABS: ABSOLUTE BASOPHIL COUNT 0.1 /CUMM (0.0-0.2); ABSOLUTE EOSINOPHIL COUNT 0.2 /CUMM (0.0-0.7); ABSOLUTE GRANULOCYTE CT 3.5 /CUMM (1.4-6.5); ABSOLUTE LYMPH COUNT 3.6 /CUMM (1.2-3.4); ABSOLUTE MONOCYTE COUNT 0.9 /CUMM (0.10-0.60); BASOPHIL % 0.7 % (0.0-2.0); EOSINOPHIL % 2.3 % (0-5); GRANULOCYTE % 42.5 % (42.2-75.2); HEMATOCRIT 36.8 % (37-47); MEAN CORPUSCULAR HGB 27.5 PG (27.0-31.0); MEAN CORPUSCULAR HGB CONC 32.8 G/DL (33.0-37.0); MEAN CORPUSCULAR VOLUME 83.8 FL (81.0-99.0); MEAN PLATELET VOLUME 7.6 FL (7.4-10.4); PLATELET COUNT 336 /CUMM (130-400); RBC DISTRIBUTION WIDTH 13.7 % (11.5-14.5); RED BLOOD CELL CT 4.39 /CUMM (4.20-5.40); WHITE BLOOD CELL COUNT 8.2 /CUMM (4.8-10.8)
[2016-12-12 11:47] VITALS: BP 126/85
== END 2016-12-12 11:48 ==
LOC: ERH 09:46
PROVIDERS: Physician Assistant Medical
DX: R60.0 Localized edema (principal); R07.9 Chest pain, unspecified; R51 Headache; R42 Dizziness and giddiness
CPT/HCPCS: 93005; 93010; J3101

== ENCOUNTER 2017-06-18 15:14 | Observation (INO) | payer OTHER ==
[~2017-06-18] VITALS: Ht 167.6 cm; Wt 91.6 kg
[~2017-06-18 15:14] MED LIST changes: +HYCET 7.5 MG-3473 ML PO; +METFORMIN HCL1000 M1 PO; +NOVOLOG FL100 UNIT/1 SC; +OXYCODONE-ACET1 EACH PO; +PERCOCET 10-321 EACH PO; +PROTONIX40 M3 PO; +TRESIBA FL200 UNIT/1 SC; +ZOFRAN ODT8 M1 PO
[2017-06-18 16:17] LABS: ABSOLUTE BASOPHIL COUNT 0 /CUMM (0.0-0.2); ABSOLUTE EOSINOPHIL COUNT 0.1 /CUMM (0.0-0.7); ABSOLUTE GRANULOCYTE CT 4.2 /CUMM (1.4-6.5); ABSOLUTE LYMPH COUNT 2.7 /CUMM (1.2-3.4); ABSOLUTE MONOCYTE COUNT 0.5 /CUMM (0.10-0.60); BASOPHIL % 0.6 % (0.0-2.0); EOSINOPHIL % 1.1 % (0-5); HEMATOCRIT 38.6 % (37-47); MEAN CORPUSCULAR HGB 26.4 PG (27.0-31.0); MEAN CORPUSCULAR HGB CONC 31.9 G/DL (33.0-37.0); MEAN CORPUSCULAR VOLUME 82.8 FL (81.0-99.0); MEAN PLATELET VOLUME 8.2 FL (7.4-10.4); PLATELET COUNT 447 /CUMM (130-400); RBC DISTRIBUTION WIDTH 15.6 % (11.5-14.5); RED BLOOD CELL CT 4.66 /CUMM (4.20-5.40); WHITE BLOOD CELL COUNT 7.6 /CUMM (4.8-10.8)
--- NOTE | 2017-06-18 19:14 | ED GI/GU/ABDOMINAL COMPLAINT ---
History of Present Illness General Chief Complaint: General Adult Stated Complaint: SIB DR SALMERON FOR ADMISSION FOR ENDOSCOPY Source: patient, family, old records Exam Limitations: no limitations Vital Signs & Intake/Output Vital Signs & Intake/Output Vital Signs Date Time Temp Pulse Resp B/P B/P Pulse O2 O2 Flow FiO2 Mean Ox Delivery Rate 06/18 1555 98.6 82 16 133/84 98 Room Air Allergies Coded Allergies: Benzodiazepines (Severe, SHAKES 10/26/16) chlorzoxazone (From LORZONE) (Severe, RESTLESSNESS 12/12/16) cyclobenzaprine (From FLEXERIL) (Severe, RESTLESSNESS 12/12/16) metoclopramide (From REGLAN) (Severe, TREMORS, SI, FEELING LIKE SHE WANTED TO CUT HER SKIN & RUN 10/27/16) carisoprodol (From SOMA) (Intermediate, RESTLESSNESS 12/12/16) albuterol (SHAKES 10/27/16) cefuroxime (From CEFTIN) (SHAKES 10/26/16) ciprofloxacin (From CIPRO) (SHAKES 10/26/16) clonazepam (From KLONOPIN) (SHAKES 10/27/16) codeine (SHAKES 10/26/16) guaifenesin (From CHERATUSSIN AC) (SHAKES 10/27/16) promethazine (SHAKES 10/26/16) tetanus and diphtheria toxoids (tetanus & diphtheria toxoids) (LOCAL REACTION TO SITE/SWELLING 11/30/15) prochlorperazine (From Compazine) (Severe, UNABLE TO KEEP STILL/HIGH ANXIETY 02/06) meperidine (From Demerol) (ANXIETY 11/30/15) Reconcile Medications Ondansetron (Zofran Odt) 8 MG TAB.RAPDIS 1 TAB PO TID PRN NAUSEA place on top of the tongue where it will dissolve, then swallow Oxycodone HCl/Acetaminophen (Percocet 5-325 MG Tablet) 5 MG-325 MG TABLET 1-2 TAB PO Q6P PRN PAIN Oxycodone HCl/Acetaminophen (Percocet 10-325 MG Tablet) 10 MG-325 MG TABLET 2 TAB PO Q4-6 PRN PRN pain control no additional tylenol Pantoprazole Sodium (Protonix) 40 MG TABLET.DR 1 TAB PO DAILY ulcer risk reduction Triage Note: 47F IN ED FOR ADMISSION FOR ENDOSCOPY AND ADMISSION DUE TO SEVERE EPIGASTRIC PAIN X6 WEEKS WITH INABILITY TO EAT S/P GASTRIC BYPASS WITH DR LAW. +NAUSEA,-VOMITING. TOLERATING FLUIDS. HAD CT THAT DID NOT SHOW ANYTHING SIGNIFICANT. RUNNING OUT OF PAIN MEDS. CURRENT PAIN 9/10. AFEBRILE. DENIES CP/SOB Triage Nurses Notes Reviewed? yes ? N Is pt currently ? No HPI: Patient had a bypass 6 weeks ago and has been having epigastric abdominal pain since then. They're within that helps the pain is Percocet. Patient occasionally gets nauseous which is relieved with Zofran. Patient was seen in the emergency Department 3 days ago and had a negative workup including a CAT scan. Patient called her surgeon today because she was running out of pain medication and instructed her to come to the hospital for admission for an endoscopy tomorrow. The pain is 9 out of 10 and is sharp and burning in nature. There are no exacerbating factors and is medicated with Percocet. There is no radiation. The pain is constant however decreases to a 2 out of 10 after the Percocet. Past History Travel History Traveled to [place] past 21 day No Medical History Any Pertinent Medical History? 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 No Review of Systems Review of Systems Constitutional: Reports: no symptoms. EENTM: Reports: no symptoms. Respiratory: Reports: no symptoms. Cardiovascular: Reports: no symptoms. GI: Reports: see HPI, abdominal pain. Genitourinary: Reports: no symptoms. Musculoskeletal: Reports: no symptoms. Skin: Reports: no symptoms. Neurological/Psychological: Reports: no symptoms. Hematologic/Endocrine: Reports: no symptoms. Immunologic/Allergic: Reports: no symptoms. All Other Systems: Reviewed and Negative Physical Exam Physical Exam General Appearance: well developed/nourished, alert, awake, anxious, moderate distress Head: atraumatic, normal appearance Eyes: Bilateral: PERRL, EOMI. Ears, Nose, Throat, Mouth: hearing grossly normal, DRY MUCOSA Neck: normal inspection, supple, full range of motion Respiratory: normal breath sounds, chest non-tender, no respiratory distress, lungs clear Cardiovascular: regular rate/rhythm, normal peripheral pulses Gastrointestinal: normal bowel sounds, soft, non-tender, no organomegaly Back: normal inspection Extremities: normal range of motion Neurologic/Psych: no motor/sensory deficits, awake, alert, oriented x 3, normal gait, normal mood/affect Skin: intact, normal color, warm/dry Core Measures ACS in differential dx? No Sepsis Present: No Sepsis Focused Exam Completed? No Progress Differential Diagnosis: esophageal varices, gastritis, hepatitis, hernia, ischemic bowel, inflamm bowel dis Plan of Care: Orders Procedure Date/time Status Clear Liquid Diet 06/[address] in observation 06/18 1914 Active ED Holding Orders 06/18 1914 Active Vital Signs 06/18 1914 Active Code Status 06/18 1914 Active LIPASE 06/18 155 Complete LACTIC ACID 06/18 155 Complete COMPREHENSIVE METABOLIC PANEL 06/18 1557 Complete CBC WITHOUT DIFFERENTIAL 06/18 1557 Complete Current Medications Sig/Jimy Start time Last Medication Dose Stop Time Status Admin Sodium Chloride 1,000 ML ONCE ONE 06/18 193 AC (Normal Saline 0.9%) 06/19 0209 Laboratory Tests 06/18/17 1857: Lactic Acid Cancelled 06/18/17 1610: Anion Gap 13, Estimated GFR > 60, BUN/Creatinine Ratio 15.0, Glucose 111 H, Lactic Acid 1.3, Calcium 9.7, Total Bilirubin 0.3, AST 40 H, ALT 63 H, Alkaline Phosphatase 348 H, Total Protein 8.0, Albumin 4.3, Globulin 3.7, Albumin/Globulin Ratio 1.2, Lipase 102, CBC w Diff NO MAN DIFF REQ, RBC 4.66, MCV 82.8, MCH 26.4 L, RDW 15.6 H, MPV 8.2, Gran % 55.0, Lymphocytes % 36.1, Monocytes % 7.2, Eosinophils % 1.1, Basophils % 0.6, Absolute Granulocytes 4.2, Absolute Lymphocytes 2.7, Absolute Monocytes 0.5, Absolute Eosinophils 0.1, Absolute Basophils 0, PUBS MCHC 31.9 L Initial ED EKG: none Departure Departure Disposition: STILL A PATIENT Condition: Stable Clinical Impression Primary Impression: Upper abdominal pain, unspecified Referrals: Dilcia Ahn MD (PCP/Family) Departure Forms: Customer Survey General Discharge Information Observation Note Spoke With: Tristian Burnett DO Physician Advisor Notified: BRITTANY ASTUDILLO,AVELINA [address] Place Patient In: Non-ED OBS Care Area Rationale for Observation: My rational for observation is as follows [IV PAIN CONTROL, ENDOSCOPY TOMORROW, IV FLUIDS, GASTROENTEROLOGY CONSULTATION].
[2017-06-18] MEDS ORDERED: OXYCONTIN10 M1 PO (20:57)
[2017-06-18] MEDS ORDERED: DEXILANT60 M1 PO (20:58)
--- NOTE | 2017-06-18 21:08 | History & Physical ---
Silverio Reich 06/18/17 2100: General Information and HPI MD Statement: I have seen and personally examined KASHMIR MARTÍNEZ and documented this H& P. The patient is a 47 year old F who presented with a patient stated chief complaint of [abdominal pain. Source of Information: patient, old records, PCP Exam Limitations: no limitations History of Present Illness: 47-year-old female who is 7 weeks status post gastric bypass procedure by Dr. Tristian Burnett presents with continued epigastric and central abdominal pain. She states that she has had this pain since surgery, it is severe, pain is accompanied with constant nausea "24/7" per patient for which she takes 8 mg of Zofran throughout the day 4. She states the pain is worse after eating, pain is constant and fluctuating. She cannot sleep secondary to the pain. She has been seen in the office multiple times for same and has been seen in the ER 3 days ago for this pain as well. Her CT scan which I reviewed is negative for acute findings however pain persists. She discussed the treatment plan with Dr. Richards earlier today who suggested that she come to the hospital to be admitted on 23 hour observation and have a GI evaluation and endoscopy to help further diagnose and treat the source of her postoperative pain. Patient states that she has a fair appetite however due to the pain and nausea she cannot eat. She has not lost any significant amount of weight since her surgery. Pain is nonradiating. She has normal bowel movements. She is not vomiting. She has chronic back pain and is seen by pain management, Dr. Peña. Allergies/Medications Allergies: Coded Allergies: Benzodiazepines (Severe, SHAKES 10/26/16) chlorzoxazone (From LORZONE) (Severe, RESTLESSNESS 12/12/16) cyclobenzaprine (From FLEXERIL) (Severe, RESTLESSNESS 12/12/16) metoclopramide (From REGLAN) (Severe, TREMORS, SI, FEELING LIKE SHE WANTED TO CUT HER SKIN & RUN 10/27/16) carisoprodol (From SOMA) (Intermediate, RESTLESSNESS 12/12/16) albuterol (SHAKES 10/27/16) cefuroxime (From CEFTIN) (SHA10/26/16) ciprofloxacin (From CIPRO) (SHA10/26/16) clonazepam (From KLONOPIN) ([facility] 10/27/16) codeine (SHAKES 10/26/16) guaifenesin (From CHERATUSSIN AC) (SHAKES 10/27/16) [facility] ([facility] 10/26/16) tetanus and diphtheria toxoids (tetanus & diphtheria toxoids) (LOCAL REACTION TO SITE/SWELLING 11/30/15) prochlorperazine (From Compazine) (Severe, UNABLE TO KEEP STILL/HIGH ANXIETY 02/06) meperidine (From Demerol) (ANXIETY 11/30/15) Home Med list Dexlansoprazole (Dexilant) 60 MG CAP.BP 1 CAP PO DAILY gi (Reported) Ondansetron (Zofran Odt) 8 MG TAB.RAPDIS 1 TAB PO TID PRN NAUSEA place on top of the tongue where it will dissolve, then swallow Oxycodone HCl/Acetaminophen (Percocet 5-325 MG Tablet) 5 MG-325 MG TABLET 1-2 TAB PO Q6P PRN PAIN Pantoprazole Sodium (Protonix) 40 MG TABLET. 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 Review of Systems Review of Systems Constitutional: Reports: see HPI. Comments Review of systems: See HPI, all other systems negative. Constitutional: No chills fever or weight loss HEENT: No visual changes no sore throat no congestion Cardiovascular: No chest pain ,palpitation , orthopnea or ankle swelling Skin: No jaundice no rashes Respiratory: No dyspnea cough sputum or hemoptysis GI: See HPI : No dysuria no hematuria Musclulo skeletal: chronic back pain no neck pain, Neurologic: No numbness no confusion Psych: No stress anxiety or depression,. Heme/endocrine: No bruising no bleeding no polyuria or polydipsia Immunology: No splenectomy or history of AIDS Exam & Diagnostic Data Last 24 Hrs of Vital Signs/I&O Vital Signs Date Time Temp Pulse Resp B/P B/P Pulse O2 O2 Flow FiO2 Mean Ox Delivery Rate 06/18 1555 98.6 82 16 133/84 98 Room Air Intake & Output 06/18 1600 06/18 0800 06/18 0000 Intake Total Output Total Balance Patient 202 lb Weight Weight Reported by Patient Measurement Method Physical Exam General Appearance Alert, Oriented X3, Cooperative, No Acute Distress Skin No Rashes, No Breakdown, No Significant Lesion Skin Temp/Moisture Exam: Warm/Dry HEENT Atraumatic, PERRLA, EOMI, Mucous Membr. moist/pink Neck Supple, No JVD Cardiovascular Regular Rate, Normal S1, Normal S2 Lungs Clear to Auscultation, Normal Air Movement Abdomen Normal Bowel Sounds, Soft, minimal tenderness in the epigastric and mid abdominal region, well-healed surgical incisions Neurological Normal Speech, Strength at 5/5 X4 Ext, Normal Tone, Sensation Intact Extremities No Clubbing, No Cyanosis, No Edema, Normal Pulses, No Tenderness/ Swelling Last 24 Hrs of Labs/Kumar: Laboratory Tests 06/18/17 1857: Lactic Acid Cancelled 06/18/17 1610: Anion Gap 13, Estimated GFR > 60, BUN/Creatinine Ratio 15.0, Glucose 111 H, Lactic Acid 1.3, Calcium 9.7, Total Bilirubin 0.3, AST 40 H, ALT 63 H, Alkaline Phosphatase 348 H, Total Protein 8.0, Albumin 4.3, Globulin 3.7, Albumin/Globulin Ratio 1.2, Lipase 102, CBC w Diff NO MAN DIFF REQ, RBC 4.66, MCV 82.8, MCH 26.4 L, RDW 15.6 H, MPV 8.2, Gran % 55.0, Lymphocytes % 36.1, Monocytes % 7.2, Eosinophils % 1.1, Basophils % 0.6, Absolute Granulocytes 4.2, Absolute Lymphocytes 2.7, Absolute Monocytes 0.5, Absolute Eosinophils 0.1, Absolute Basophils 0, PUBS MCHC 31.9 L Assessment/Plan Assessment: 47-year-old female 7 weeks status post gastric bypass surgery with continued mid and epigastric abdominal pain and persistent nausea with normal laboratory findings except for mild transaminitis which and a normal CT scan 3 days ago. Due to patient's persistent and severe pain she'll be monitored in the hospital under 23 hour observation. We will try to keep her narcotic pain use to a minimum. She is on a clear liquid diet for now and nothing by mouth after midnight. GI will be consulted for likely endoscopy tomorrow. IV fluids, heparin subcutaneous for DVT prophylaxis, ad beatris. activity. DW Dr Burnett As Ranked By This Provider Problem List: 1. Abdominal pain 2. Gastric bypass status for obesity Core Measures/Misc (03/10) Acute Coronary Syndrome ACS Diagnosis: No Congestive Heart Failure Congestive Heart Failure Diagnosis No Cerebrovascular Accident CVA/TIA Diagnosis: No VTE (View Protocol) VTE Risk Factors Age>40 No Mechanical VTE Prophylaxis d/t N/A MechProphylax Ordered No VTE Pharm Prophylaxis d/t NA PharmProphylax ordered Sepsis (View protocol) Sepsis Present: No Hortencia Tristian CHAPPELL 06/19/17 1339: Attending MD Review Statement Attending Statement Attending MD Statement: examined this patient, discuss w/resident/PA/ROOF CEMENT AND PAINT MAKER, agreed w/resident/PA/ROOF CEMENT AND PAINT MAKER, discussed with family, reviewed EMR data (avail), reviewed images Attending Assessment/Plan: Patient seen and examined, agree with above. Abdominal pain for 6-7 weeks s/p LRYGB. States she get upper abdominal pain with eating. CT scan over the weekend normal. She is taking her PPI as per patient. She does have a chronic pain management physician. AVSS. Abd-soft. Labs ok. Will need EGD, will need to discuss further pain management with her pain doc prior to D/C.
[2017-06-18 23:26] VITALS: BP 140/80
--- NOTE | 2017-06-19 03:15 | Admission Core Measures ---
Acute Coronary Syndrome (CM) ACS Core Measures Acute Coronary Syndrome Diagnosis No Congestive Heart Failure (NEW) CHF Core Measures Congestive Heart Failure Diagnosis No Cerebrovascular Accident (NEW) CVA Core Measures CVA/TIA Diagnosis No Venous Thromboembolism VTE Core Basim (View Protocol) VTE Risk Factors Age>40 No Mechanical VTE Prophylaxis d/t N/A MechProphylax Ordered No VTE Pharm Prophylaxis d/t NA PharmProphylax ordered Problem List As ranked by this Provider includes Assessment & Plan 1. Gastric bypass status for obesity 2. Upper abdominal pain, unspecified HOME MEDS Home Med List Dexlansoprazole (Dexilant) 60 MG CAP..BP 1 CAP PO DAILY gi (Reported) Ondansetron (Zofran Odt) 8 MG TAB.RAPDIS 1 TAB PO TID PRN NAUSEA Oxycodone HCl/Acetaminophen (Percocet 5-325 MG Tablet) 5 MG-325 MG TABLET 1-2 TAB PO Q6P PRN PAIN Pantoprazole Sodium (Protonix) 40 MG TABLET.DR 1 TAB PO DAILY ulcer risk reduction
[2017-06-19 07:51] VITALS: BP 112/62
--- NOTE | 2017-06-19 08:07 | PN- Bariatrics ---
See Addendum Subjective Subjective: Reports ongoing epigatric pain and nausea. Reporting history of her "chronic alk phos", "sphincter of oddi dysfunction", and "overactive vagus". She reports she has been taking dexilant instead of protonix, and apparently has a history of ulcers. She denies taking nsaids at home. No dizziness. No shortness of breath. No chest pains. Voiding without difficulty. Objective Vital Signs and I&Os Vital Signs Date Time Temp Pulse Resp B/P B/P Pulse O2 O2 Flow FiO2 Mean Ox Delivery Rate 06/19 0751 98.3 60 20 112/62 97 06/18 2326 98.2 76 20 140/80 97 Room Air 06/189 98.0 78 20 142/78 99 Room Air 06/18 193 98.2 80 20 127/86 98 Room Air 06/18 1555 98.6 82 16 133/84 98 Room Air Intake & Output 06/19 1600 06/19 0800 06/19 0000 06/18 1600 06/18 0800 06/18 0000 Intake Total 2000 Output Total Balance 2000 Intake, IV 2000 Patient 202 lb 202 lb Weight Weight Reported by Patient Measurement Method Physical Exam: General - alert & oriented x 3. comfortable. no acute distress. Lungs - clear bilaterally. no w/r/r. Cardiac - s1s2. reg. Abdomen - soft. epigastric tenderness. well healed laparoscopic incisions. no peritonitis. Extremities - warm bilaterally. no c/c/e. calves soft and nontender b/l. Current Medications: Current Medications Sig/Jimy Start time Last Medication Dose Route Stop Time Status Admin Heparin Sodium 5,000 UNIT Q8 06/18 2200 AC (Porcine) SC Hydromorphone HCl 0.4 MG Q4P PRN 06/18 2100 AC 06/19 IV 033 Hydromorphone HCl 0 .STK-MED ONE 06/18 2047 DC .ROUTE Hydromorphone HCl 2 MG ONCE ONE 06/18 2045 DC 06/18 IV 06/18 Hydromorphone HCl 0 .STK-MED ONE 06/18 1946 DC .ROUTE Hydromorphone HCl 2 MG ONCE ONE 06/18 1930 DC 06/18 IV 06/18 1931 2007 Ketorolac 30 MG Q6-PRN PRN 06/18 2100 DC Tromethamine IV Omeprazole 40 MG DAILY AC 06/19 0700 AC PO Ondansetron HCl 8 MG Q6-PRN PRN 06/18 2100 AC 06/18 IV 2329 Oxycodone HCl 10 MG Q8 06/18 2200 AC 06/19 PO 0616 Oxycodone/ 1 TAB Q4P PRN 06/18 2100 AC Acetaminophen PO Oxycodone/ 2 TAB Q4P PRN 06/18 2100 AC 06/19 Acetaminophen PO 0616 Potassium Chloride 20 MEQ Q10H 06/18 2100 AC 06/18 Dextrose/Sodium 1,000 ML IV 235 Chloride Sodium Chloride 1,000 ML ONCE ONE 06/18 193 DC 06/18 IV 06/19 Results Last 48 Hours of Labs: Laboratory Tests 06/18 06/18 1857 1610 Chemistry Sodium (137 - 145 mmol/L) 142 Potassium (3.5 - 5.1 mmol/L) 4.1 Chloride (98 - 107 mmol/L) 107 Carbon Dioxide (22 - 30 mmol/L) 23 Anion Gap (5 - 16) 13 BUN (7 - 17 mg/dL) 6 L Creatinine (0.5 - 1.0 mg/dL) 0.4 L Estimated GFR (>60 ml/min) > 60 BUN/Creatinine Ratio (7 - 25 %) 15.0 Glucose (65 - 99 mg/dL) 111 H Lactic Acid (0.7 - 2.1 mmol/L) Cancelled 1.3 Calcium (8.4 - 10.2 mg/dL) 9.7 Total Bilirubin (0.2 - 1.3 mg/dL) 0.3 AST (14 - 36 U/L) 40 H ALT (9 - 52 U/L) 63 H Alkaline Phosphatase (<127 U/L) 348 H Total Protein (6.3 - 8.2 g/dL) 8.0 Albumin (3.5 - 5.0 g/dL) 4.3 Globulin (1.9 - 4.2 gm/dL) 3.7 Albumin/Globulin Ratio (1.1 - 2.2 %) 1.2 Lipase (23 - 300 U/L) 102 Hematology CBC w Diff NO MAN DIFF REQ WBC (4.8 - 10.8 /CUMM) 7.6 RBC (4.20 - 5.40 /CUMM) 4.66 Hgb (12.0 - 16.0 G/DL) 12.3 Hct (37 - 47 %) 38.6 MCV (81.0 - 99.0 FL) 82.8 MCH (27.0 - 31.0 PG) 26.4 L RDW (11.5 - 14.5 %) 15.6 H Plt Count (130 - 400 /CUMM) 447 H MPV (7.4 - 10.4 FL) 8.2 Gran % (42.2 - 75.2 %) 55.0 Lymphocytes % (20.5 - 51.1 %) 36.1 Monocytes % (1.7 - 9.3 %) 7.2 Eosinophils % (0 - 5 %) 1.1 Basophils % (0.0 - 2.0 %) 0.6 Absolute Granulocytes (1.4 - 6.5 /CUMM) 4.2 Absolute Lymphocytes (1.2 - 3.4 /CUMM) 2.7 Absolute Monocytes (0.10 - 0.60 /CUMM) 0.5 Absolute Eosinophils (0.0 - 0.7 /CUMM) 0.1 Absolute Basophils (0.0 - 0.2 /CUMM) 0 PUBS MCHC (33.0 - 37.0 G/DL) 31.9 L Assessment/Plan Assessment/Plan This 47-year-old female with hx morbid obesity, diabetes, anemia, anxiety/ depression, chronic back pain, hx pancreatitis, hx peptic ulcer, is now 7 weeks s/p lap gastric bypass surgery with ongoing epigastric pain and nausea, apparently requiring percocet and zofran npo / ivf pepcid iv bid may consider adding carafate after upper endoscopy limit narcotic pain medication anti-emetics prn oob/ambulation hep sc - dvt ppx (she's refusing this currently) GI consult and endoscopy to rule out ulcer or other process causing her ongoing pain/nausea will d/w Core Measures Venous Thromboembolism VTE Risk Factors Age>40 No Mechanical VTE Prophylaxis d/t N/A MechProphylax Ordered No VTE Pharm Prophylaxis d/t NA PharmProphylax ordered
--- NOTE | 2017-06-19 08:44 | Cons- Gastroenterology ---
General Information and HPI Consulting Request Date of Consult: 06/19/17 Requested By: Tristian Burnett DO Reason for Consult: I was just notified within the past hour by the evening GI coverage, of a request for an a.m. GI consult to assess abdominal pain in a patient post bariatric surgery, who sees pain management. Source of Information: patient, family ( Isaiah in room), old records Exam Limitations: no limitations (xc old GI records in [place]/[facility]) History of Present Illness: 47 y/o female, followed as an outpatient by Dr. Ahn for primary care, Dr. Garcia in [place], [place], for GI (previously by Dr. Kishore Golden in [place], [place]), Dr. Beasley for pain management (chronic back pain/DJD/HD), Dr. Keane for CRS, & Dr. Burnett for bariatrics, post lap GJ bypass 05/01/17 for BMI 38, JJ, DM, GERD. 05/02/17: Postop UGI series- unremarkable, without leak or obstruction. She has a convoluted history. Additionally, she has a chronically elevated alk phos, reportedly followed by Dr. Garcia. She is post-lap CCKY [address] Rogers at [facility]. She has never had a liver biopsy. 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 Jackson at [facility]. Apparently she had biliary manometry approximately 2011 at [facility] & a papillotomy at some point.*According to the [employer], the patient's alk phos has been in the mid-100 range since 10/2016, but increased to the mid-300 range in 05/2017. She denied any new medications or herbal meds re: LFTs. She denied any jaundice, dark urine, light stools, or confusion. She denied any history of hepatitis, needlesticks, body piercings (aside from earrings), or tattoos. She claimed she had a "normal colonoscopy with normal random bxs" by Dr. Kishore Golden in [place] in 2014 for evaluation of diarrhea then (since resolved off Metformin), but that "he should have known it was from her Metformin" & so she switched to Dr. Garcia for GI. She sees CRS for a "thrombosed hemorrhoid". She currently denied any diarrhea, constipation, obstipation, tenesmus, change in stool caliber, or rectal bleeding. She noted occasional GERD, without any odynophagia, dysphagia, hematemesis, or melena. She had early satiety as expected, post-GJ bypass. Family history is unknown regarding any GI Ca, GI disease, or inherited liver disease, as the patient is adopted. 06/15/17: CT AP WITH IV CONTRAST- The patient is status post gastric bypass surgery. There is a 4.1 cm TV by 2.6 cm AP focal fluid collection located immediately beneath the gastroenteric anastomosis on image 27 of series 2. This collection is nonspecific and could reflect a postoperative seroma or resolving hematoma. An infected collection is felt to be less likely given the lack of inflammatory changes around this area. There is no contrast leakage. There is no bowel obstruction. Normal liver & spleen. Post CCKY. No mention of any dilated ducts. No ascites. Partial fatty atrophy of pancreas. The patient claimed she has had chronic, dull, epigastric pain "14/01", across the upper abdomen, without radiation to the back, since the GJ bypass surgery, although she does see pain management for chronic back pain. She presented to the [facility] ER 06/15/17 for the above & had a CT AP (*see above). Her labs then were relatively stable except for the chronically abnormal LFTs. She returned to the ER 06/18/17 at 3:14 p.m., at which point, she was admitted to the bariatric service. She has numerous alleged allergies and/or medication-related side effects (at least 15 listed meds). Upon arrival, she was hemodynamically stable and afebrile, with O2 sat RA 98%, with abdominal pain "9 out of 10". She claimed she had constant nausea without vomiting, for which she took Zofran ODT 8 mg TID. She was tolerating po fluids at home. She claimed she was "running out of pain meds". She denied any chest pain or shortness of breath. Apparently, she was told to go to the ER on 06/18/17 by bariatrics for eventual endoscopy. She received IV Dilaudid in the ER. *She refused po Oxycontin and initially refused sc heparin. Her appetite was fair. She is 5'6". She stated her maximum weight was 287 lbs at the time of IVF in 2009. She got down to 226 lbs pre-bariatric surgery, & claimed she had lost 24 lbs since her bariatric surgery , "now weighing 202 lbs". In addition to the Zofran ODT, she reportedly was also on Dexilant 60 mg daily & Oxycodone (Percocet). She claimed she is intolerant of Protonix, which caused "shakes". She denied any ASA, NSAIDS, cigarettes, EtOH, or street drugs (although she is on rx narcotics). She claimed she had [address] Garcia pre-bariatric surgery, & was told of "an ulcer that healed" ( txd with Dexilant), & was "H. pylori-negative". She has a history of anxiety, depression, & anemia (w/o transfx). She is currently NPO. She denied any fevers, chills, sx UTI, or URI. 06/18/17: Admission labs- WBC 7.6, H/H 12.3/38.6, MCV 82.8, RDW 15.6, PLT 447, glucose 111, BUN/Cr 6/0.4, GFR > 60, Na 142, K 4.2, HCO3 23, AG 13, lactate 1.3, normal lipase 102, Ca 9.7, albumin 4.3, globulin 3.7, TBil 0.3, alk phos 348, AST 40, ALT 63, serum HCG- negative. (No U/A). Allergies/Medications Allergies: Coded Allergies: Benzodiazepines (Severe, SHAKES 10/26/16) chlorzoxazone (From LORZONE) (Severe, RESTLESSNESS 12/12/16) cyclobenzaprine (From FLEXERIL) (Severe, RESTLESSNESS 12/12/16) metoclopramide (From REGLAN) (Severe, TREMORS, SI, FEELING LIKE SHE WANTED TO CUT HER SKIN & RUN 10/27/16) carisoprodol (From SOMA) (Intermediate, RESTLESSNESS 12/12/16) albuterol (SHAKES 10/27/16) cefuroxime (From CEFTIN) (SHA10/26/16) ciprofloxacin (From CIPRO) (SHA10/26/16) clonazepam (From KLONOPIN) (SHAKES 10/27/16) codeine (SHAKES 10/26/16) guaifenesin (From CHERATUSSIN AC) (SHAKES 10/27/16) promethazine (SHAKES 10/26/16) tetanus and diphtheria toxoids (tetanus & diphtheria toxoids) (LOCAL REACTION TO SITE/SWELLING 11/30/15) prochlorperazine (From Compazine) (Severe, UNABLE TO KEEP STILL/HIGH ANXIETY 02/06) meperidine (From Demerol) (ANXIETY 11/30/15) Home Med List: Dexlansoprazole (Dexilant) 60 MG CAP.BP 1 CAP PO DAILY gi (Reported) Ondansetron (Zofran Odt) 8 MG TAB.RAPDIS 1 TAB PO TID PRN NAUSEA place on top of the tongue where it will dissolve, then swallow Oxycodone HCl/Acetaminophen (Percocet 5-325 MG Tablet) 5 MG-325 MG TABLET 1-2 TAB PO Q6P PRN PAIN Pantoprazole Sodium (Protonix) 40 MG TABLET. 1 TAB PO DAILY ulcer risk reduction Current Medications: Current Medications Sig/Jimy Start time Last Medication Dose Route Stop Time Status Admin Famotidine 20 MG BID 06/19 1000 AC IV Heparin Sodium 5,000 UNIT Q8 06/18 2200 AC (Porcine) SC Hydromorphone HCl 0.4 MG Q6-PRN PRN 06/19 1130 AC IV Hydromorphone HCl 0.4 MG Q4P PRN 06/18 2100 DC 06/19 IV 0846 Hydromorphone HCl 0 .STK-MED ONE 06/18 2047 DC .ROUTE Hydromorphone HCl 2 MG ONCE ONE 06/18 2045 DC 06/18 IV 06/18 Hydromorphone HCl 0 .STK-MED ONE 06/18 1946 DC .ROUTE Hydromorphone HCl 2 MG ONCE ONE 06/18 1930 DC 06/18 IV 06/18 1931 2007 Ketorolac 30 MG Q6-PRN PRN 06/18 2100 DC Tromethamine IV Omeprazole 40 MG DAILY AC 06/19 0700 DC PO Ondansetron HCl 8 MG Q6-PRN PRN 06/18 2100 AC 06/18 IV 2329 Oxycodone HCl 10 MG Q8 06/18 2200 AC 06/19 PO 0616 Oxycodone/ 1 TAB Q4P PRN 06/18 2100 AC Acetaminophen PO Oxycodone/ 2 TAB Q4P PRN 06/18 2100 AC 06/19 Acetaminophen PO 1030 Potassium Chloride 20 MEQ Q10H 06/18 2100 AC 06/19 Dextrose/Sodium 1,000 ML IV 1040 Chloride Sodium Chloride 1,000 ML ONCE ONE 06/18 1930 DC 06/18 IV 06/199 2006 Past History Travel History Traveled to [place] past 21 day No Medical History Blood Transfusion Hx: No Neurological: NONE EENT: NONE Cardiovascular: NONE Respiratory: NONE Gastrointestinal: PANCREATITIS- Hx "SOD" Hepatic: Lap CCKY 1999; ? SOD post bilary manometry/ES in 2011 at [facility]- Dr. Jackson Renal: NONE Musculoskeletal: chronic back pain, disk herniation, degen joint disease Psychiatric: anxiety, depression, opioid dependence Endocrine: diabetes, obesity Blood Disorders: NONE (w/o transfx), anemia Cancer(s): NONE PROCUREMENT ACCOUNTANT/Reproductive: NONE Surgical History Surgical History: cholecystectomy (lap 1999; ? SOD/ES), 05/01/17: gastric bypass Family History Relations & Conditions If Any: Relation not specified for: Unobtainable family history due to adoption Psychosocial History Where Do You Live? Home Who Do You Live With? spouse, child (1 of her kids (dtr)) Services at Home: None Primary Language: Ukrainian Smoking Status: Never Smoked ETOH Use: denies use Illicit Drug Use: denies illicit drug use (on rx narcs) Living Will? no Power of Single End Sewer/HCP? no Other Social History: to [employer]. Lives with & dtr. No cigarettes, EtOH, or street drugs. On rx narcs for "chronic back pain". 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 3 children (2 sons/1 dtr). One of her sons not seen x years, since age 12. One son-out of house. One dtr- at home. Functional Ability ADLs Independent: dressing, eating, toileting, bathing. Ambulation: independent IADLs Independent: shopping, housework, finances, food prep, telephone, transportation , medication admin. Employment History Employment: Unemployed Review of Systems Review of Systems: Full 14 point ROS otherwise noncontributory & as above. Review of Systems Constitutional: Denies: chills, diaphoresis, fever, malaise, weakness, unexplained weight loss. EENTM: Denies: blurred vision, double vision, visual changes, eye pain, eye drainage, eye tearing, icterus, ear discharge, ear pain, ear redness, hearing changes, nasal congestion, epistaxis, nasal pain, throat pain, throat swelling, mouth pain, tooth pain. Cardiovascular: Denies: chest pain, edema, orthopena, palpitations, peripheral edema, syncope. Respiratory: Denies: cough, hemoptysis, orthopnea, short of breath, sputum production, stridor, wheezing. GI: Reports: abdominal pain, nausea. Denies: bloating, constipation, diarrhea, distention, bowel incontinence, melena, bloody stool, changes in stool, vomiting , steatorrhea. Genitourinary: Denies: discharge, dysuria, frequency, hematuria, hesitation, nocturia, pain, urgency. Musculoskeletal: Reports: back pain (chronic). Denies: gout, joint pain, joint swelling, muscle pain, muscle stiffness, neck pain. Skin: Denies: cysts, change in skin color, change in hair/nails, dryness, erythema, jaundice, lesions, lymphangitis, lumps, moles, rash. Neurological/Psychological: Reports: anxiety, depressed, emotional problems. Denies: ataxia, cognitive dysfunction, confusion, dementia, headache, numbness, paresthesia, pre-existing deficit, petit mal seizures, tingling, tremors, tonic-clonic seizures, unable to move lower ext, unable to move upper ext, weakness. Hematologic/Endocrine: Denies: bruising, bleeding, polyuria, polydipsia. Immunologic/Allergic: Denies: splenectomy, HIV/AIDS, lymphadenopathy. All Other Systems: Reviewed and Negative Exam & Diagnostic Data Vital Signs and I&O Vital Signs Date Time Temp Pulse Resp B/P B/P Pulse O2 O2 Flow FiO2 Mean Ox Delivery Rate 06/19 0751 98.3 60 20 112/62 97 06/18 2326 98.2 76 20 140/80 97 Room Air 06/18 2229 98.0 78 20 142/78 99 Room Air 06/18 1930 98.2 80 20 127/86 98 Room Air 06/18 1555 98.6 82 16 133/84 98 Room Air Intake & Output 06/19 1600 06/19 0400 06/18 1600 06/18 0400 06/17 1600 06/17 040 Intake Total 800 2000 Output Total Balance 800 2000 Intake, IV 800 2000 Patient 202 lb 202 lb Weight Weight Reported by Patient Measurement Method Physical Exam: Well-developed, well-nourished, obese, somewhat anxious female, in no apparent distress. Non-toxic appearing. Resting comfortably. Sclera anicteric. Conjunctiva pink. Oropharynx clear. No oral thrush. No aphthous ulcers. There is no adenopathy, thyromegaly, or JVD. No peripheral stigmata of inflammatory bowel disease or chronic liver disease on exam. No spiders on the anterior chest wall. No CVA tenderness. No definite spine tenderness. Breast & pelvic exams: API. Lungs: clear to A&P. No wheezing, rales, or rhonchi. Heart exam: regular rate rhythm, S1 and S2, without any murmur. Abdominal exam: normal bowel sounds , soft obese belly, subjective epigastric tenderness, without guarding or rebound. No mass. No organomegaly. No fluid shift. No pulsatile mass. Multiple well-healed port sites. Digital rectal exam: deferred per patient (done by Dr. Keane, of [facility], 2 weeks [employer]). Extremities: without C, C, or E. No palpable cords. No rash. Mild DJD. No acute arthropathy. No palmar erythema. No Dupuytren's contractures. Distal pulses 2+ bilaterally. DTRs 2+ bilaterally. Alert and oriented x 3. No tremor. No asterixis. Results Pertinent Lab Results: Laboratory Tests 06/18 06/18 1857 1610 Chemistry Sodium (137 - 145 mmol/L) 142 Potassium (3.5 - 5.1 mmol/L) 4.1 Chloride (98 - 107 mmol/L) 107 Carbon Dioxide (22 - 30 mmol/L) 23 Anion Gap (5 - 16) 13 BUN (7 - 17 mg/dL) 6 L Creatinine (0.5 - 1.0 mg/dL) 0.4 L Estimated GFR (>60 ml/min) > 60 BUN/Creatinine Ratio (7 - 25 %) 15.0 Glucose (65 - 99 mg/dL) 111 H Lactic Acid (0.7 - 2.1 mmol/L) Cancelled 1.3 Calcium (8.4 - 10.2 mg/dL) 9.7 Total Bilirubin (0.2 - 1.3 mg/dL) 0.3 AST (14 - 36 U/L) 40 H ALT (9 - 52 U/L) 63 H Alkaline Phosphatase (<127 U/L) 348 H Total Protein (6.3 - 8.2 g/dL) 8.0 Albumin (3.5 - 5.0 g/dL) 4.3 Globulin (1.9 - 4.2 gm/dL) 3.7 Albumin/Globulin Ratio (1.1 - 2.2 %) 1.2 Lipase (23 - 300 U/L) 102 Total Beta HCG (NEGATIVE) NEGATIVE Hematology CBC w Diff NO MAN DIFF REQ WBC (4.8 - 10.8 /CUMM) 7.6 RBC (4.20 - 5.40 /CUMM) 4.66 Hgb (12.0 - 16.0 G/DL) 12.3 Hct (37 - 47 %) 38.6 MCV (81.0 - 99.0 FL) 82.8 MCH (27.0 - 31.0 PG) 26.4 L RDW (11.5 - 14.5 %) 15.6 H Plt Count (130 - 400 /CUMM) 447 H MPV (7.4 - 10.4 FL) 8.2 Gran % (42.2 - 75.2 %) 55.0 Lymphocytes % (20.5 - 51.1 %) 36.1 Monocytes % (1.7 - 9.3 %) 7.2 Eosinophils % (0 - 5 %) 1.1 Basophils % (0.0 - 2.0 %) 0.6 Absolute Granulocytes (1.4 - 6.5 /CUMM) 4.2 Absolute Lymphocytes (1.2 - 3.4 /CUMM) 2.7 Absolute Monocytes (0.10 - 0.60 /CUMM) 0.5 Absolute Eosinophils (0.0 - 0.7 /CUMM) 0.1 Absolute Basophils (0.0 - 0.2 /CUMM) 0 PUBS MCHC (33.0 - 37.0 G/DL) 31.9 L Imaging/Other Studies: 06/15/17: CT AP WITH IV CONTRAST- The patient is status post gastric bypass surgery. There is a 4.1 cm TV by 2.6 cm AP focal fluid collection located immediately beneath the gastroenteric anastomosis on image 27 of series 2. This collection is nonspecific and could reflect a postoperative seroma or resolving hematoma. An infected collection is felt to be less likely given the lack of inflammatory changes around this area. There is no contrast leakage. There is no bowel obstruction. Normal liver & spleen. Post CCKY. No mention of any dilated ducts. No ascites. Partial fatty atrophy of pancreas. Assessment/Plan Assessment/Recommendations: 47 y/o female, followed as an outpatient by Dr. Ahn for primary care, Dr. Garcia in [place], [place], for GI (previously by Dr. Kishore Golden in [place], [place]), Dr. Beasley for pain management (chronic back pain/DJD/HD), Dr. Keane for CRS, & Dr. Burnett for bariatrics, post lap GJ bypass 05/01/17 for BMI 38, JJ, DM, GERD. 05/02/17: Postop UGI series- unremarkable, without leak or obstruction. She has a convoluted history. Additionally, she has a chronically elevated alk phos, reportedly followed by Dr. Garcia. She is post-lap CCKY [address] Rogers at [facility]. She has never had a liver biopsy. 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 Jackson at [facility]. Apparently she had biliary manometry approximately 2011 at [facility] & a papillotomy at some point.*According to the [employer], the patient's alk phos has been in the mid-100 range since 10/2016, but increased to the mid-300 range in 05/2017. She denied any new medications or herbal meds re: LFTs. She denied any jaundice, dark urine, light stools, or confusion. She denied any history of hepatitis, needlesticks, body piercings (aside from earrings), or tattoos. She claimed she had a "normal colonoscopy with normal random bxs" by Dr. Kishore Golden in [place] in 2014 for evaluation of diarrhea then (since resolved off Metformin), but that "he should have known it was from her Metformin" & so she switched to Dr. Garcia for GI. She sees CRS for a "thrombosed hemorrhoid". She currently denied any diarrhea, constipation, obstipation, tenesmus, change in stool caliber, or rectal bleeding. She noted occasional GERD, without any odynophagia, dysphagia, hematemesis, or melena. She had early satiety as expected, post-GJ bypass. Family history is unknown regarding any GI Ca, GI disease, or inherited liver disease, as the patient is adopted. 06/15/17: CT AP WITH IV CONTRAST- The patient is status post gastric bypass surgery. There is a 4.1 cm TV by 2.6 cm AP focal fluid collection located immediately beneath the gastroenteric anastomosis on image 27 of series 2. This collection is nonspecific and could reflect a postoperative seroma or resolving hematoma. An infected collection is felt to be less likely given the lack of inflammatory changes around this area. There is no contrast leakage. There is no bowel obstruction. Normal liver & spleen. Post CCKY. No mention of any dilated ducts. No ascites. Partial fatty atrophy of pancreas. The patient claimed she has had chronic, dull, epigastric pain "14/01", across the upper abdomen, without radiation to the back, since the GJ bypass surgery, although she does see pain management for chronic back pain. She presented to the [facility] ER 06/15/17 for the above & had a CT AP (*see above). Her labs then were relatively stable except for the chronically abnormal LFTs. She returned to the ER 06/18/17 at 3:14 p.m., at which point, she was admitted to the bariatric service. She has numerous alleged allergies and/or medication-related side effects (at least 15 listed meds). Upon arrival, she was hemodynamically stable and afebrile, with O2 sat RA 98%, with abdominal pain "9 out of 10". She claimed she had constant nausea without vomiting, for which she took Zofran ODT 8 mg TID. She was tolerating po fluids at home. She claimed she was "running out of pain meds". She denied any chest pain or shortness of breath. Apparently, she was told to go to the ER on 06/18/17 by bariatrics for eventual endoscopy. She received IV Dilaudid in the ER. *She refused po Oxycontin and initially refused sc heparin. Her appetite was fair. She is 5'6". She stated her maximum weight was 287 lbs at the time of IVF in 2009. She got down to 226 lbs pre-bariatric surgery, & claimed she had lost 24 lbs since her bariatric surgery , "now weighing 202 lbs". In addition to the Zofran ODT, she reportedly was also on Dexilant 60 mg daily & Oxycodone (Percocet). She claimed she is intolerant of Protonix, which caused "shakes". She denied any ASA, NSAIDS, cigarettes, EtOH, or street drugs (although she is on rx narcotics). She claimed she had [address] Garcia pre-bariatric surgery, & was told of "an ulcer that healed" ( txd with Dexilant), & was "H. pylori-negative". She has a history of anxiety, depression, & anemia (w/o transfx). She is currently NPO. She denied any fevers, chills, sx UTI, or URI. 06/18/17: Admission labs- WBC 7.6, H/H 12.3/38.6, MCV 82.8, RDW 15.6, PLT 447, glucose 111, BUN/Cr 6/0.4, GFR > 60, Na 142, K 4.2, HCO3 23, AG 13, lactate 1.3, normal lipase 102, Ca 9.7, albumin 4.3, globulin 3.7, TBil 0.3, alk phos 348, AST 40, ALT 63, serum HCG- negative. (No U/A). *Differential diagnoses for the patient's epigastric symptoms post 05/01/17: lap GJ bypass include marginal ulcer, rule out recurrent PUD, possible internal hernia, doubt fistula, etc. There was a small seroma vs. hematoma on the 06/15/17: CT AP with IV contrast, which is probably unrelated. Rule out malingering and/or drug seeking. The somewhat chronically elevated alk phos with mild transaminitis is noted. Rule out fatty liver- multiple risk factors for this, including obesity, DM, etc., (although none seen on CT). The history of "SOD" by alleged bilary manometry is noted, post remote ES at [facility] by Dr. Jackson in 2011, post 1999: lap CCKY. This may or may not be related to her symptoms of chronic pain. Her lipase was normal. Her chroic opioid use could be exacerbating the "SOD". *In the midst of this GI consultation, I found out that the patient wants my partner, Dr. Misa Simon, to perform her EGD & assume her GI care while at [facility]. *SUGGEST- NPO. IV Pepcid 20 mg Q 12h (Dexilant not on formulary here & apparently intolerant of some of the other PPI). DVT prophylaxis with sc heparin, as patient allows. Judicious use of narcotic analgesics. No NSAIDS. *For EGD later today, by Dr. Misa Simon, who will assume the patient's inpt GI care, if needed. Zofran as needed. *Advise outpt follow-up with her usual GI MD, Dr. Garcia (and/or Dr. Jackson), regarding the chronically elevated LFTs (consider checking 5'NTD, full Hep A, B & C serologies, JESSICA, anti-smooth muscle Ab, anti- LKM Ab [r/o AIH], AMA [r/o PBC], Fe, TIBC, ferrtitin [r/o HHC], Tylenol level [ on chronic Percocet], possible eventual liver bx, etc- defer to [facility] for ? EUS/ repeat biliary manometry, etc). The above was discussed with the patient & her at the bedside (as per patient request), Dr. Burnett, & Dr. Misa Simon. Problem List: 1. Upper abdominal pain, unspecified 2. Gastric bypass status for obesity 3. Nausea 4. Elevated LFTs 5. Sphincter of Oddi dysfunction 6. Morbid obesity 7. Opioid dependence Copies To: Tristian Burnett DO; Lakhwinder ASTUDILLO,Sunil David; Manuel ASTUDILLO,Yanique David; Aurora ASTUDILLO, Tono Purcell; Jimy ASTUDILLO,Dilcia; Iza ASTUDILLO,Byron Wang.; Jose ASTUDILLO,Raul Isidro. Consult Acknowledgment - Thank you for your consult request.
[2017-06-19 12:44] VITALS: BP 140/80
--- NOTE | 2017-06-19 15:11 | Proc Note Endoscopy ---
Endoscopy Procedure Procedure Date: 06/19/17 Procedure Type: EGD w/biopsy Materials And Corrosion Engineer: Tono Simon M.D. ASA Classification: III Indications: Epigastric pain and nausea status post Maria Antonia-en-Y gastric bypass Instrument: diagnostic gastroscope Meds Received: FELISA Patient's Tolerance: good Complications: none Extent Reached: Maria Antonia-en-Y limb Procedure: The patient signed informed consent, and was medicated. Pulse oximetry, blood pressure and cardiac monitoring were performed continuously throughout the procedure. The Olympus high-definition gastroscope was inserted into the mouth and advanced to the Maria Antonia-en-Y limb. Findings: The esophagus had normal caliber and contour. The mucosa was intact throughout. There were 3 straight/flat columns of blue venous structures in the distal esophagus, not clearly varices. The GE junction was at 40 cm, with an intermittent ring. There was a reasonably large gastric pouch, without lesion (erosion, ulcer, nodularity, evident fistula). Retroflexion was performed, and the cardia appeared normal. 2 biopsies were obtained from the pouch. At the gastrojejunal anastomosis, there was an ulceration of greater than 1 cm, with a clean base, and protruding carlos. This area was slightly friable. The anastomosis was otherwise normal, and without stricture or fistulous opening. The short blind jejunal limb was normal. The endoscope was inserted to its felt into the Maria Antonia limb; the mucosa and folds were normal throughout. Impression: * Status post Maria Antonia-en-Y gastric bypass: Marginal ulcer, in the area of protruding carlos Recommendations: * Await pathology * PPI twice a day * Sucralfate suspension 1 g by mouth 4 times a day (before meals, bedtime) CC: Tristian Burnett DO
[2017-06-19 22:20] VITALS: BP 128/62
[2017-06-20 07:31] VITALS: BP 128/73
--- NOTE | 2017-06-20 09:46 | PN- General Surgery ---
See Addendum Subjective Subjective: Pt. states her pain is tolerable with current pain regimen, states he pain is about 5 as baseline. No nausea, no emesis, not intersted in eating. Pt. was refusing Pepcid staing that she is allergic to it Refusing sc heparin Objective Vital Signs and I&Os Vital Signs Date Time Temp Pulse Resp B/P B/P Pulse O2 O2 Flow FiO2 Mean Ox Delivery Rate 06/20 0731 98.2 66 18 128/73 99 Room Air 06/19 2220 98.5 62 20 128/62 96 Room Air 06/19 1244 98.0 62 20 140/80 98 Room Air Intake & Output 06/20 1600 06/20 0800 06/20 0000 06/19 1600 06/19 0800 06/19 0000 Intake Total 800 390 922 8669 Output Total 700 700 Balance 100 -070 418 1124 Intake, IV 800 426 965 3044 Intake, Oral 0 Number 0 Bowel Movements Output, Urine 700 700 Patient 202 lb Weight Alert, oriente, appropriate, no discomfort,no distress, resting comfortably in bed Lungs clear Herat normal rate Abdomen is soft non distended. Has mild tenderness on palpation in epigastric area. No tympany Extr. without edema. Assessment/Plan Assessment/Plan Hx of RYGB 7 weks ago complicated by marginal G-J ulcer as evidenced by endoscopy. Clinically pt. loks relatively well. She has baseline chrnic pain which she manages with oxycodone prn at home. Her back and abdominal pain seems to be controlled with current regimen including Percocet. She states Oxycontin is not as helpful. She took dose of IV Dilaudid but doesn't like the way it makes her feel. I explained to her the need for sc heparin ans she is willing to take it now. She understands risks and benefits. She has been refusing PPI, Pepcid. I spoke and reviewed all with Dr Richards who approved for Dexillant 60 mg BID which she took in the past and has it with her in hospital. Awaiting Pharmacy approval. Will initiate stage [address] Richards request. Dr. Richards will discuss chronic pain management with pt's pain management provider. Core Measures Venous Thromboembolism VTE Risk Factors Age>40 No Mechanical VTE Prophylaxis d/t N/A MechProphylax Ordered No VTE Pharm Prophylaxis d/t NA PharmProphylax ordered
[2017-06-20] MEDS ORDERED: DEXILANT60 M1 PO (10:39)
[2017-06-20] MEDS ORDERED: CARAFATE1 G1 PO ×2 (10:39)
[2017-06-20 13:41] VITALS: BP 128/68
[2017-06-20] MEDS ORDERED: PERCOCET 5-3251 EACH PO (14:37)
--- NOTE | 2017-06-20 14:44 | Patient Discharge Instructions ---
Discharge Instructions General Discharge Information You were seen/treated for: ulcer You had these procedures: endoscopy Watch for these problems: increased abdominal pain, nausea, vomiting, fevers greater than 1001.5 Daily wet to dry dressings: No Diet Continue normal diet: No Recommended Diet: stage 2 diet , may advance as tolerated Activity Full Activity/No Limits: Yes Activity Self Limited: No Acute Coronary Syndrome Inclusion Criteria At DC or during hospital stay patient has or had the following: ACS DIAGNOSIS No Discharge Core Measures Meds if any: Prescribed or Continued at Discharge Meds if any: NOT Prescribed or Continued at Discharge Congestive Heart Failure Inclusion Criteria At DC or during hospital stay patient has or had the following: CHF DIAGNOSIS No Discharge Core Measures Meds if any: Prescribed or Continued at Discharge Meds if any: NOT Prescribed or Continued at Discharge Cerebrovascular accident Inclusion Criteria At DC or during hospital stay patient has or had the following: CVA/TIA Diagnosis No Discharge Core Measures Meds if any: Prescribed or Continued at Discharge Meds if any: NOT Prescribed or Continued at Discharge Venous thromboembolism Inclusion Criteria VTE Diagnosis No VTE Type NONE VTE Confirmed by (Test) NONE Discharge Core Measures - Per Current guidelines, there needs to be overlap - treatment for the first 5 days of Warfarin therapy. - If discharged on Warfarin prior to 5 days of - overlap therapy, the patient will need to be - assessed for post discharge needs including - *Post discharge parental anticoagulation - *Warfarin and/or parental anticoagulation education - *Follow up date to check INR post discharge At least 5 days overlap therapy as Inpatient No Meds if any: Prescribed or Continued at Discharge Note: Overlap Therapy is Warfarin and Anticoagulant Meds if any: NOT Prescribed or Continued at Discharge
--- NOTE | 2017-06-20 14:50 | Surgical Discharge Summary ---
See Addendum Visit Information Visit Dates Admission Date: 06/18/17 Discharge Date: 06/20/17 History of Present Illness Chief Complaint: Pt. has hx of lap. RYGB 7 weeks ago. Presented with progressively worsening epigastric/ abdominal pain associated with nausea and emesis despite Zofran and pain meds. Abdominal pain has been worse with PO intake. Medical History Blood Transfusion Hx: No Neurological: NONE EENT: NONE Cardiovascular: NONE Respiratory: NONE Gastrointestinal: PANCREATITIS- Hx "SOD" Hepatic: Lap CCKY 1999; ? SOD post bilary manometry/ES in 2011 at [facility]- Dr. Jackson Renal: NONE Musculoskeletal: chronic back pain, disk herniation, degen joint disease Psychiatric: anxiety, depression, opioid dependence Endocrine: diabetes, obesity Blood Disorders: NONE (w/o transfx), anemia Cancer(s): NONE GASTROENTEROLOGY NURSE/Reproductive: NONE History of MRSA: No History of VRE: No History of CDIFF: No Isolation History: Standard Tetanus Vaccine: 06/14/13 Surgical History Pertinent Surgical History: cholecystectomy (lap 1999; ? SOD/ES), 05/01/17: gastric bypass Family History Relations & Conditions If Any: Relation not specified for: Unobtainable family history due to adoption Psychosocial History Where Do You Live? Home Who Do You Live With? Spouse Services at Home: None What is Your Primary Language? Fijian ETOH Use: denies use Other Addictive Behavior: to [employer]. Lives with & dtr. No cigarettes, EtOH, or street drugs. On rx narcs for "chronic back pain". 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 3 children (2 sons/1 dtr). One of her sons not seen x years, since age 12. One son-out of house. One dtr- at home. Review of Systems: see admisssion note Hospital Course Course Attending Physician: Tristian Burnett DO Primary Care Physician: Jimy ASTUDILLO,[facility] Course: Pt. as above presented with worsening abdominal / epigastric pain associated with PO intake and associated with nausea . She was admitted for evaluation. Patient was seen by Dr Rodriguez and eventually sent to endoscopy suite for EGD which revealed large gastric pouch with visible ulcer at G-J anastomosis , greater than 1 cm with clean base and portruding staple. There was no active bleeding. Bx were taken for pathology. Post procedure she was hemodynamically stable. She was treated with Carafate 1 gm every 6 hrs. She was unable to take Protonix or Pepcid due to known hx of adverse reactions. After discussion with Dr Richards and pt. decision was made to place pt on Dexillant 60 mg PO twice a day( she is to open capsule). She has chronic back pain as baseline for which she has been taking occasional Oxycodone at home. While in hospital she had reasonable control with Percocet. Pt. was placed on stage 2 weight loss diet which she tolerated well. Her abdominal exam is unremarkable with mild mild tenderness in epigastric area with Percocet as needed. She ambulates independently in [place]. Pt. is discharged home today per Dr Richards. She will be given prescription for Percocet , 30 pills for pain till seen by her provider for chronic pain issues. Pt. agreeable with plan. Allergies: Coded Allergies: Benzodiazepines (Severe, SHAKES 10/26/16) chlorzoxazone (From LORZONE) (Severe, RESTLESSNESS 12/12/16) cyclobenzaprine (From FLEXERIL) (Severe, RESTLESSNESS 12/12/16) metoclopramide (From REGLAN) (Severe, TREMORS, SI, FEELING LIKE SHE WANTED TO CUT HER SKIN & RUN 10/27/16) carisoprodol (From SOMA) (Intermediate, RESTLESSNESS 12/12/16) albuterol (SHAKES 10/27/16) cefuroxime (From CEFTIN) (SHAKES 10/26/16) ciprofloxacin (From CIPRO) (SHAKES 10/26/16) clonazepam (From KLONOPIN) (SHAKES 10/27/16) codeine (SHAKES 10/26/16) guaifenesin (From CHERATUSSIN AC) (SHAKES 10/27/16) promethazine (SHAKES 10/26/16) tetanus and diphtheria toxoids (tetanus & diphtheria toxoids) (LOCAL REACTION TO SITE/SWELLING 11/30/15) prochlorperazine (From Compazine) (Severe, UNABLE TO KEEP STILL/HIGH ANXIETY 02/06) meperidine (From Demerol) (ANXIETY 11/30/15) Disposition Summary Disposition Principal Diagnosis: see above G-J ulcer Additional Diagnosis: Morbid obesity Discharge Disposition: home or self care Discharge Instructions General Discharge Information Code Status: Full Code Patient's Diet: stage 2 weight loss Patient's Activity: ambulatory Follow-Up Instructions/Appts: see instructions F/U with Dr Richards in office. call for appointment Medications at Discharge Discharge Medications: Stop taking the following medications: Pantoprazole Sodium (Protonix) 40 MG TABLET. ORAL DAILY Qty = 30 Dexlansoprazole (Dexilant) 60 MG CAP. ORAL DAILY Start taking the following new medications: Dexlansoprazole (Dexilant) 60 MG CAP. 1 Tablet ORAL TWICE DAILY Qty = 90 Refills = 2 Instructions: open capsule and take with sips of water Comments: Last Taken: 06/20/17 Time: 1150PM Sucralfate (Carafate) 1 GRAM TABLET 1,000 Milligram ORAL 4 TIMES A DAY Qty = 90 Refills = 2 Comments: Last Taken: 06/20/17 Time: 1135AM Oxycodone HCl/Acetaminophen (Percocet 5-325 MG Tablet) 5 MG-325 MG TABLET 1-2 Tablet ORAL EVERY 4-6 HOURS as needed for pain Qty = 30 No Refills
== END 2017-06-20 15:45 ==
LOC: ERH 15:14 → ERHI 19:14 → 2NB 19:14 → ENRESERV 20:27 → ENTRNSPT 23:05 → 2NB 23:13 → CMPTRNSPT 06-19 07:28 → ENPENDDIS 06-20 14:46 → 2NB 06-20 15:45
PROVIDERS: Emergency Medicine
DX: K29.50 Unspecified chronic gastritis without bleeding (principal); R10.13 Epigastric pain; K21.9 Gastro-esophageal reflux disease without esophagitis; E11.9 Type 2 diabetes mellitus without complications; Z79.84 Long term (current) use of oral hypoglycemic drugs; E66.9 Obesity, unspecified; F41.9 Anxiety disorder, unspecified; M54.9 Dorsalgia, unspecified
CPT/HCPCS: 88305; 88312; 96361; 96372; 96374; 96375; 96376; G0378; J1644; J2405; J7042; S5012

== ENCOUNTER 2017-07-05 10:29 | Observation (INO) | payer OTHER ==
[~2017-07-05] VITALS: Ht 167.6 cm; Wt 88.9 kg
[~2017-07-05 10:29] MED LIST changes: +CARAFATE1 G1 PO; +DEXILANT60 M1 PO; +OXYCONTIN10 M1 PO
--- NOTE | 2017-07-05 11:44 | ED GI/GU/ABDOMINAL COMPLAINT ---
History of Present Illness General Chief Complaint: Abdominal Pain/Flank Pain Stated Complaint: BLACK STOOL,ABDOMINAL PAIN Source: patient Exam Limitations: no limitations Allergies Coded Allergies: Benzodiazepines (Severe, SHAKES 10/26/16) chlorzoxazone (From LORZONE) (Severe, RESTLESSNESS 12/12/16) cyclobenzaprine (From FLEXERIL) (Severe, RESTLESSNESS 12/12/16) metoclopramide (From REGLAN) (Severe, TREMORS, SI, FEELING LIKE SHE WANTED TO CUT HER SKIN & RUN 10/27/16) carisoprodol (From SOMA) (Intermediate, RESTLESSNESS 12/12/16) albuterol ([facility] 10/27/16) cefuroxime (From CEFTIN) ([facility] 10/26/16) ciprofloxacin (From CIPRO) ([facility] 10/26/16) clonazepam (From KLONOPIN) ([facility] 10/27/16) codeine ([facility] 10/26/16) guaifenesin (From CHERATUSSIN AC) ([facility] 10/27/16) promethazine ([facility] 10/26/16) tetanus and diphtheria toxoids (tetanus & diphtheria toxoids) (LOCAL REACTION TO SITE/SWELLING 11/30/15) prochlorperazine (From Compazine) (Severe, UNABLE TO KEEP STILL/HIGH ANXIETY 02/06) meperidine (From Demerol) (ANXIETY 11/30/15) Reconcile Medications Ondansetron HCl 8 MG TABLET 1 TAB PO TID PRN GI (Reported) Oxycodone HCl 10 MG TABLET 1 TAB PO BID PRN PAIN (Reported) Sucralfate (Carafate) 1 GRAM TABLET 1,000 MG PO 4 TIMES/DAY ulcer Triage Note: PT TO ED C/O WORSENING GASTRIC ULCER PAIN SINCE DISCHARGE FROM [place] ON 06/20. STATES IS SPITTING UP BLOOD AND HAS BLACK STOOL. HR 78. O2 SAT 99% BP 134/85. DENIES LIGHTHEADEDNESS/DIZZINESS. C/O CHILLS/FATIGUE AND PAIN Triage Nurses Notes Reviewed? yes ? N Is pt currently ? No Onset: Abrupt Duration: week(s):, gone now Timing: recent history Quality/Severity: moderate, sharpness, severe Location: epigastric Radiation: no radiation No Modifying Factors: none HPI: 47-year-old female that had a gastric bypass surgery back in April 2017 and recently was diagnosed with a gastric ulcer comes in for further evaluation of persistent upper abdominal pain. She reports some black stool yesterday. She's been experiencing significant sharp pain 10 out of 10 epigastric. Some associated nausea. Denies any other abdominal surgeries other than the gastric bypass surgery. She had an upper endoscopy by Dr. Simon that confirmed the ulcer. She reports that she has officially released her bariatric surgeon Dr. Burnett from her care. (Yunier Ramirez) Vital Signs & Intake/Output Vital Signs & Intake/Output Vital Signs Date Time Temp Pulse Resp B/P B/P Pulse O2 O2 Flow FiO2 Mean Ox Delivery Rate 07/05 1552 98.0 68 17 140/67 98 Room Air 07/05 1425 98.1 62 16 125/76 99 Room Air 07/05 1302 98.2 64 16 129/74 98 Room Air 07/05 1149 Room Air 07/05 1101 98.4 78 18 134/85 99 Room Air (Kaleigh ASTUDILLO,Zach Perez) Past History Travel History Traveled to [place] past 21 day No Medical History Any Pertinent Medical History? see below for history Neurological: NONE EENT: NONE Cardiovascular: NONE Respiratory: NONE Gastrointestinal: PANCREATITIS- Hx "SOD" Hepatic: Lap CCKY 1999; ? SOD post bilary manometry/ES in 2011 at [facility]- Dr. Jackson Renal: NONE Musculoskeletal: chronic back pain, disk herniation, degen joint disease Psychiatric: anxiety, opioid dependence Endocrine: diabetes, obesity Blood Disorders: anemia Cancer(s): NONE MEDICAL LOGISTICS SPECIALIST/Reproductive: NONE History of MRSA: No History of VRE: No History of CDIFF: No Tetanus Vaccine: 06/14/13 Surgical History Surgical History: cholecystectomy (lap 1999; ? SOD/ES), 05/01/17: gastric bypass Psychosocial History Who do you live with Spouse Services at Home None What is your primary language Vietnamese Tobacco Use: Never used ETOH Use: denies use Illicit Drug Use: denies illicit drug use Family History Family History, If Any: Relation not specified for: Unobtainable family history due to adoption Hx Contributory? No (Yunier Ramirez) Review of Systems Review of Systems Constitutional: Reports: see HPI. EENTM: Reports: no symptoms. Respiratory: Reports: no symptoms. Cardiovascular: Reports: no symptoms. GI: Reports: see HPI. Genitourinary: Reports: no symptoms. Musculoskeletal: Reports: no symptoms. Skin: Reports: no symptoms. Neurological/Psychological: Reports: no symptoms. Hematologic/Endocrine: Reports: no symptoms. Immunologic/Allergic: Reports: no symptoms. All Other Systems: Reviewed and Negative (Yunier Ramirez) Physical Exam Physical Exam General Appearance: well developed/nourished, alert, awake Head: atraumatic Eyes: Bilateral: normal appearance, EOMI. Ears, Nose, Throat, Mouth: hearing grossly normal, moist mucous membrane Neck: normal inspection Respiratory: normal breath sounds, no respiratory distress Cardiovascular: regular rate/rhythm Gastrointestinal: soft, tenderness Rectal: heme negative stool Back: normal inspection Extremities: normal range of motion Neurologic/Psych: awake, alert, oriented x 3, normal gait Skin: intact, normal color Core Measures ACS in differential dx? No Sepsis Present: No Sepsis Focused Exam Completed? No (Yunier Ramirez) Progress Differential Diagnosis: bowel obstruction, diverticulitis, gastritis, peptic ulcer, SBO, INTERNAL HERNIA, UPPER GI BLEED, Diagnostic Imaging: Viewed by Me: CT Scan. Discussed w/RAD: CT Scan. Radiology Impression: PATIENT: KASHMIR MARTÍNEZ PRESENT AGE: 47 PATIENT ACCOUNT NO: [id number] : 68 LOCATION: [facility] ORDERING PHYSICIAN: Yunier VILLALOBOS SERVICE DATE: 07/05/17-1143 EXAM TYPE : CAT - CT ABD & PELVIS W ORAL & IV CO EXAMINATION: CT ABDOMEN AND PELVIS WITH CONTRAST CLINICAL INFORMATION: Abdominal pain. COMPARISON: CT abdomen pelvis dated 06/16/2017. TECHNIQUE: Multidetector volumetric imaging was performed of the abdomen and pelvis following IV administration of 95 mL of Omnipaque 300 intravenous contrast. Sagittal and coronal reformatted images were obtained on the technologist's workstation. DLP: 1069.99 mGy-cm FINDINGS: There are surgical changes status post gastric bypass. The previously identified fluid collection located immediately beneath the gastroenteric anastomosis is stable in size, measuring 3.5 x 2.6 cm. As stated previously this collection is nonspecific. It could represent a postoperative seroma. No bowel obstruction. LUNG BASES: The visualized lung bases are unremarkable. LIVER, GALLBLADDER, AND BILIARY TREE: The liver is normal in size, shape, and attenuation. No focal hepatic lesion or biliary ductal dilatation is present. The gallbladder is surgically absent. PANCREAS: Unremarkable. SPLEEN: Unremarkable. ADRENAL GLANDS: Unremarkable. KIDNEYS AND URETERS: The kidneys are normal in size, shape, and attenuation. No hydronephrosis, hydroureter, or calculi seen. No perinephric stranding. BLADDER: Unremarkable. ABDOMINAL WALL: No significant hernia is appreciated. LYMPH NODES: No lymphadenopathy. VASCULAR: Unremarkable. PELVIC VISCERA: The uterus is grossly normal. There is a 3.1 x 2.7 left ovarian cyst. OSSEOUS STRUCTURES: Unremarkable. IMPRESSION: There are surgical changes status post gastric bypass. The previously identified fluid collection located immediately beneath the gastroenteric anastomosis is stable in size, measuring 3.5 x 2.6 cm. As stated previously this collection is nonspecific. It could represent a postoperative seroma. DICTATED BY: Kam Greer MD DATE/TIME DICTATED:07/05/171437 BUNDLE SORTER:SARHA DATE/TIME TRANSCRIBED:07/05/171437 CONFIDENTIAL, DO NOT COPY WITHOUT APPROPRIATE AUTHORIZATION. <Electronically signed in Other Vendor System> SIGNED BY: Kam Greer MD 07/05/17 1457 Initial ED EKG: none (Yunier Ramirez) Plan of Care: Orders Procedure Date/time Status Patient Data 07/[address] in observation 07/05 1545 Active URINALYSIS 07/05 1143 Complete LIPASE 07/05 1143 Complete LACTIC ACID 07/05 1143 Complete COMPREHENSIVE METABOLIC PANEL 07/05 1143 Complete CBC WITHOUT DIFFERENTIAL 07/05 1143 Complete AMYLASE 07/05 1143 Complete Current Medications Sig/Jimy Start time Last Medication Dose Stop Time Status Admin Hydromorphone HCl 0.5 MG ONCE ONE 07/05 1615 UNVr (Dilaudid) 07/05 1616 Pantoprazole Sodium 40 MG ONCE ONE 07/05 1615 UNVr (Protonix) 07/05 1616 Laboratory Tests 07/05/17 1443: Lactic Acid Cancelled 07/05/17 1401: Urine Color YEL, Urine Clarity HAZY H, Urine pH 8.0, Ur Specific [place] 1.020, Urine Protein NEG, Urine Ketones NEG, Urine Nitrite NEG, Urine Bilirubin NEG, Urine Urobilinogen 0.2, Ur Leukocyte Esterase NEG, Ur Microscopic SEDIMENT EXAMINED, Urine RBC 1-3, Urine WBC RARE, Ur Epithelial Cells MANY H, Urine Bacteria MOD H, Urine Mucus RARE, Urine Hemoglobin NEG, Urine Glucose NEG 07/05/17 1230: Anion Gap 12, Estimated GFR > 60, BUN/Creatinine Ratio 14.0, Glucose 152 H, Lactic Acid 1.2, Calcium 9.2, Total Bilirubin 0.4, AST 84 H, ALT 90 H, Alkaline Phosphatase 303 H, Total Protein 6.8, Albumin 3.7, Globulin 3.1, Albumin/Globulin Ratio 1.2, Amylase 41, Lipase 69, CBC w Diff NO MAN DIFF REQ, RBC 4.36, MCV 83.1, MCH 26.6 L, RDW 15.5 H, MPV 8.4, Gran % 59.6, Lymphocytes % 30.6, Monocytes % 7.8, Eosinophils % 1.1, Basophils % 0.9, Absolute Granulocytes 3.6, Absolute Lymphocytes 1.9, Absolute Monocytes 0.5, Absolute Eosinophils 0.1, Absolute Basophils 0.1, PUBS MCHC 32.0 L (Kaleigh ASTUDILLO,Zach Perez) Departure Departure Disposition: STILL A PATIENT Condition: Stable Clinical Impression Primary Impression: Acute marginal ulcer Secondary Impressions: Intractable pain Referrals: Dilcia Ahn MD (PCP/Family) Departure Forms: Customer Survey General Discharge Information Observation [facility]: [facility] Notified: ZACH ARZATE DO Place Patient In: Non-ED OBS Care Area Rationale for Observation: My rational for observation is as follows . Patient will require IV pain control. GI consultation. Repeat upper endoscopy. Patient reporting significant pain despite multiple doses of IV pain medication here. She is on oral pain medication at home and has failed outpatient therapy. (Yunier Ramirez) PA/[employer] Co-Sign Statement Statement: ED Attending supervision documentation- [] I saw and evaluated the patient. I have also reviewed all the pertinent lab results and diagnostic results. I agree with the findings and the plan of care as documented in the PA's/[employer]REIGHT AGENT's documentation. [x] I have reviewed the ED Record and agree with the PA's/[employer]REIGHT AGENT's documentation. [] Additions or exceptions (if any) to the PAs/[employer]EAN [employer]REIGHT AGENT's note and plan are summarized below: [] (Kaleigh ASTUDILLO,Zach Perez)
[2017-07-05] MEDS ORDERED: OXYCODONE HCL10 M2 PO (12:05)
[2017-07-05] MEDS ORDERED: ONDANSETRON HCL8 MG PO (12:06)
[2017-07-05 12:46] LABS: ABSOLUTE BASOPHIL COUNT 0.1 /CUMM (0.0-0.2); ABSOLUTE EOSINOPHIL COUNT 0.1 /CUMM (0.0-0.7); ABSOLUTE GRANULOCYTE CT 3.6 /CUMM (1.4-6.5); ABSOLUTE LYMPH COUNT 1.9 /CUMM (1.2-3.4); ABSOLUTE MONOCYTE COUNT 0.5 /CUMM (0.10-0.60); BASOPHIL % 0.9 % (0.0-2.0); EOSINOPHIL % 1.1 % (0-5); GRANULOCYTE % 59.6 % (42.2-75.2); HEMATOCRIT 36.3 % (37-47); MEAN CORPUSCULAR HGB 26.6 PG (27.0-31.0); MEAN CORPUSCULAR VOLUME 83.1 FL (81.0-99.0); MEAN PLATELET VOLUME 8.4 FL (7.4-10.4); PLATELET COUNT 304 /CUMM (130-400); RBC DISTRIBUTION WIDTH 15.5 % (11.5-14.5); RED BLOOD CELL CT 4.36 /CUMM (4.20-5.40); WHITE BLOOD CELL COUNT 6.1 /CUMM (4.8-10.8)
--- NOTE | 2017-07-05 14:57 | CT SCAN REPORT ---
EXAMINATION: CT ABDOMEN AND PELVIS WITH CONTRAST CLINICAL INFORMATION: Abdominal pain. COMPARISON: CT abdomen pelvis dated 06/16/2017. TECHNIQUE: Multidetector volumetric imaging was performed of the abdomen and pelvis following IV administration of 95 mL of Omnipaque 300 intravenous contrast. Sagittal and coronal reformatted images were obtained on the technologist's workstation. DLP: 1069.99 mGy-cm FINDINGS: There are surgical changes status post gastric bypass. The previously identified fluid collection located immediately beneath the gastroenteric anastomosis is stable in size, measuring 3.5 x 2.6 cm. As stated previously this collection is nonspecific. It could represent a postoperative seroma. No bowel obstruction. LUNG BASES: The visualized lung bases are unremarkable. LIVER, GALLBLADDER, AND BILIARY TREE: The liver is normal in size, shape, and attenuation. No focal hepatic lesion or biliary ductal dilatation is present. The gallbladder is surgically absent. PANCREAS: Unremarkable. SPLEEN: Unremarkable. ADRENAL GLANDS: Unremarkable. KIDNEYS AND URETERS: The kidneys are normal in size, shape, and attenuation. No hydronephrosis, hydroureter, or calculi seen. No perinephric stranding. BLADDER: Unremarkable. ABDOMINAL WALL: No significant hernia is appreciated. LYMPH NODES: No lymphadenopathy. VASCULAR: Unremarkable. PELVIC VISCERA: The uterus is grossly normal. There is a 3.1 x 2.7 left ovarian cyst. OSSEOUS STRUCTURES: Unremarkable. IMPRESSION: There are surgical changes status post gastric bypass. The previously identified fluid collection located immediately beneath the gastroenteric anastomosis is stable in size, measuring 3.5 x 2.6 cm. As stated previously this collection is nonspecific. It could represent a postoperative seroma.
[2017-07-05 18:40] VITALS: BP 118/60
--- NOTE | 2017-07-05 20:26 | History & Physical ---
See Addendum Jenna ASTUDILLO,[facility] 07/05/172023: General Information and [facility] MD Statement: I have seen and personally examined KASHMIR MARTÍNEZ and documented this H& P. The patient is a 47 year old F who presented with a patient stated chief complaint of [intractable abdominal pain]. Source of Information: patient, old records Exam Limitations: no limitations History of Present Illness: The patient is a 47 year old female with past medical history significant for chronic back pain, diabetes mellitus on diet, gastric bypass 2016 who presented to ED with chief complaint of intractable abdominal pain. Patient reported that in Apr 2017 she had gastric bypass and since that time she has been suffering of intractable abdominal pain that's getting worse with time, had a endoscopy (by Dr. Simon) last month May 2017 and biopsies showed chronic mild gastric ulcer, negative for metaplasia and Helicobacter pylori. Patient mentioned that over the last couple of days the pain has been getting worse, eating and drinking aggravate her pain. It's sharp stabbing in nature in the epigastric area radiate to the mid abdomen associated with nausea for which she takes Zofran multiple time a day. She started to have vomiting couple of days ago that had some bright red blood about 2-3 times a day. She also reported change in the color of her stool and that's it's becoming darker but no bright red blood or change in the color of the toilet water with blood. Patient follow with pain clinicand according to her she doesn't like to take narcotics and try to avoid pain medication however according to her surgeon Svetlana (who she fired from her care) mentioned to me that she is narcotic dependent. Patient reported dizziness in the last couple of days, decrease oral intake because food aggravate the pain and that sometime caused her confusion because of dehydration. Denied any diarrhea, chest pain, palpitation, shortness of breath. Allergies/Medications Allergies: Coded Allergies: Benzodiazepines (Severe, SHAKES 10/26/16) chlorzoxazone (From LORZONE) (Severe, RESTLESSNESS 12/12/16) cyclobenzaprine (From FLEXERIL) (Severe, RESTLESSNESS 12/12/16) metoclopramide (From REGLAN) (Severe, TREMORS, SI, FEELING LIKE SHE WANTED TO CUT HER SKIN & RUN 10/27/16) carisoprodol (From SOMA) (Intermediate, RESTLESSNESS 12/12/16) albuterol (SHAKES 10/27/16) cefuroxime (From CEFTIN) ([facility] 10/26/16) ciprofloxacin (From CIPRO) ([facility] 10/26/16) clonazepam (From KLONOPIN) ([facility] 10/27/16) codeine ([facility] 10/26/16) guaifenesin (From CHERATUSSIN AC) ([facility] 10/27/16) promethazine ([facility] 10/26/16) tetanus and diphtheria toxoids (tetanus & diphtheria toxoids) (LOCAL REACTION TO SITE/SWELLING 11/30/15) prochlorperazine (From Compazine) (Severe, UNABLE TO KEEP STILL/HIGH ANXIETY 02/06) meperidine (From Demerol) (ANXIETY 11/30/15) Past History Travel History Traveled to [place] past 21 day No Medical History Neurological: NONE EENT: NONE Cardiovascular: NONE Respiratory: NONE Gastrointestinal: PANCREATITIS- Hx "SOD" Hepatic: Lap CCKY 1999; ? SOD post bilary manometry/ES in 2011 at [facility]- Dr. 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 SOD/ES), 05/01/17: gastric bypass Past Family/Social History Family History Relations & Conditions if any Relation not specified for: Unobtainable family history due to adoption Psychosocial History Who Do You Live With? spouse, child (1 of her kids (dtr)) Services at Home: None Primary Language: Urdu Smoking Status: Never Smoked ETOH Use: denies use Illicit Drug Use: denies illicit drug use Living Will? no Power of Implementation Analyst/HCP? no Functional Ability ADLs Independent: dressing, eating, toileting, bathing. Ambulation: independent IADLs Independent: shopping, housework, finances, food prep, telephone, transportation , medication admin. Review of Systems Review of Systems Constitutional: Reports: see HPI. Denies: malaise, weakness. EENTM: Denies: double vision, throat pain. Cardiovascular: Denies: chest pain, palpitations. Respiratory: Denies: cough, hemoptysis, orthopnea. Genitourinary: Denies: dysuria, frequency. Musculoskeletal: Denies: joint pain. Skin: Denies: rash. Exam & Diagnostic Data Last 24 Hrs of Vital Signs/I&O Vital Signs Date Time Temp Pulse Resp B/P B/P Pulse O2 O2 Flow FiO2 Mean Ox Delivery Rate 07/05 1840 98.2 72 20 118/60 96 07/05 1755 99.5 64 19 119/59 100 Room Air 07/05 1552 98.0 68 17 140/67 98 Room Air 07/05 1425 98.1 62 16 125/76 99 Room Air 07/05 1302 98.2 64 16 129/74 98 Room Air 07/05 1149 Room Air 07/05 1101 98.4 78 18 134/85 99 Room Air Intake & Output 07/05 1600 07/05 0800 07/05 0000 Intake Total 1000 Output Total Balance 1000 Intake, IV 1000 Patient 88.904 kg Weight Weight Reported by Patient Measurement Method Physical Exam General Appearance Alert, Oriented X3, Cooperative, No Acute Distress Skin No Rashes, No Breakdown, No Significant Lesion Skin Temp/Moisture Exam: Warm/Dry HEENT Atraumatic, PERRLA, EOMI, Mucous Membr. moist/pink Neck Supple Lymphatic no cervical lymphadenopathy Cardiovascular Regular Rate, Normal S1, Normal S2, No Murmurs Lungs Clear to Auscultation, Normal Air Movement Abdomen Normal Bowel Sounds, Soft, diffuse mild tenderness mostly at epigastric area Neurological Normal Speech, Strength at 5/5 X4 Ext, Normal Tone, Sensation Intact, Cranial Nerves 3-12 NL, Reflexes 2+ Extremities No Clubbing, No Cyanosis, No Edema, Normal Pulses Assessment/Plan Assessment: The patient is a 47 year old female with past medical history significant for chronic back pain, diabetes mellitus on diet who presented to ED with chief complaint of intractable abdominal pain that started after the gastric bypass she had in April 2017. On admission vital signs temperature 98.4, pulse 78, blood pressure 154/85, respiratory rate 18 and saturation 99% room air Labs pertinent to H&H 11.6/36.3 with baseline hemoglobin 12-14. Electrolytes sodium 140, potassium 4.3, BUN/creatinine 17/0.6, AST 84, ALT 19, alkaline phosphatase 303, amylase and lipase within normal, urine analysis negative. CT abdomen and pelvis with oral contrast: IMPRESSION: There are surgical changes status post gastric bypass. The previously identified fluid collection located immediately beneath the gastroenteric anastomosis is stable in size, measuring 3.5 x 2.6 cm. As stated previously this collection is nonspecific. It could represent a postoperative seroma. Problem list #Intractable abdominal pain #Upper GI bleed #Elevated alkaline phosphatase #Diabetes mellitus #Intractable abdominal pain #Upper GI bleed -Patient reported chronic abdominal pain since gastric bypass in April 2017, had multiple admission for that and status post endoscopy in May 2017 that revealed chronic mild gastric ulcer. Patient reported some red spots in her vomit and dark stool however remained hemodynamically stable, hemoglobin showed slight drop from baseline 12 its today 11.6. -Keep nothing by mouth -GI consultation was placed -Surgery consultation, I got a call back from Dr. Mota, he reported that he can't do anything because patient refused his care however he doesn't think she needs any surgical intervention -Type and crossmatch -Vital signs every shift -Orthostatic vitals -Monitor H&H closely -Avoid NSAIDs -Control severe pain with Dilaudid 2 mg by mouth every 6, avoid IV Dilaudid -Continue IV Protonix 40 mg, patient received first dose in ED and was doing well -Continue Sucralfate -Continue Zofran every 6 for nausea EKG QTC 438 -Hydrate gently with normal saline 1 bag 75 mL #Elevated alkaline phosphatase -Chronic elevated alkaline phosphatase -Patient reported scheduled MRCP on Saturday at [facility] next week #Diabetes mellitus -Patient is on diet control -She is nothing by mouth for now, please consider diabetic diet once patient starts oral intake DVT prophylaxis Alps for upper GI bleed Code full Diet nothing by mouth Consultation surgery and GI both placed As Ranked By This Provider Problem List: 1. Intractable pain Core Measures/Misc (03/10) Acute Coronary Syndrome ACS Diagnosis: No Congestive Heart Failure Congestive Heart Failure Diagnosis No Cerebrovascular Accident CVA/TIA Diagnosis: No VTE (View Protocol) VTE Risk Factors Age>40 No Mechanical VTE Prophylaxis d/t N/A MechProphylax Ordered No VTE Pharm Prophylaxis d/t Bleeding (Active) Sepsis (View protocol) Sepsis Present: No Jazmin Simon MD 07/06/17 1622: General Information and HPI Allergies/Medications Home Med list Ondansetron HCl 8 MG TABLET 1 TAB PO TID PRN GI (Reported) Oxycodone HCl 10 MG TABLET 1 TAB PO BID PRN PAIN (Reported) Oxycodone HCl/Acetaminophen (Percocet 5-325 MG Tablet) 5 MG-325 MG TABLET 1 TAB PO Q6P PRN PAIN SCALE 4-6 (MODERATE) Pantoprazole Sodium 40 MG TABLET.DR 1 TAB PO DAILY ACIDE REFLUX Sucralfate (Carafate) 1 GRAM TABLET 1,000 MG PO 4 TIMES/DAY ulcer Attending MD Review Statement Attending Statement Attending MD Statement: examined this patient, discuss w/resident/PA/STOCK HANGER, agreed w/resident/PA/STOCK HANGER, reviewed EMR data (avail) Attending Assessment/Plan: 47F PMH chronic lower back pain, HTN, gastric bypass April 2017 complicated by clean based 1cm gastric anastomotic ulcer on EGD in late May 2017, placed on PPI. Since then has had persistent epigastric pain, worse when eating , with globus sensation in her lower esophagus with solids. Has been trying to manage this pain with Percocet at home, but has been reluctant to take too much. Having normal BM and passing gas, no signs of bleeding or melena, stable vitals , labs normal. 1. Intractable epigastric pain 2. Esophageal odynophagia 3. History of Maria Antonia-en-Y gastric bypass 4. History of gastric ulcer Plan - Observation in general medicine - Protonix 40mg IV BID - Continue home regimen for pain control of Percocet 2 tabs q4h PRN - Advance diet as tolerated - Continue home medications - DVT PPx
[2017-07-05 22:08] VITALS: BP 100/60
[2017-07-05 22:12] VITALS: BP 120/70
[2017-07-06 07:02] VITALS: BP 118/78
[2017-07-06 09:49] LABS: ABSOLUTE BASOPHIL COUNT 0 /CUMM (0.0-0.2); ABSOLUTE EOSINOPHIL COUNT 0.1 /CUMM (0.0-0.7); ABSOLUTE GRANULOCYTE CT 2.9 /CUMM (1.4-6.5); ABSOLUTE LYMPH COUNT 2.3 /CUMM (1.2-3.4); ABSOLUTE MONOCYTE COUNT 0.5 /CUMM (0.10-0.60); BASOPHIL % 0.7 % (0.0-2.0); EOSINOPHIL % 1.8 % (0-5); GRANULOCYTE % 49.3 % (42.2-75.2); HEMATOCRIT 32.9 % (37-47); MEAN CORPUSCULAR HGB 27.1 PG (27.0-31.0); MEAN CORPUSCULAR HGB CONC 32.6 G/DL (33.0-37.0); MEAN CORPUSCULAR VOLUME 83.1 FL (81.0-99.0); MEAN PLATELET VOLUME 8.8 FL (7.4-10.4); PLATELET COUNT 247 /CUMM (130-400); RBC DISTRIBUTION WIDTH 15.6 % (11.5-14.5); RED BLOOD CELL CT 3.96 /CUMM (4.20-5.40); WHITE BLOOD CELL COUNT 5.9 /CUMM (4.8-10.8)
--- NOTE | 2017-07-06 12:58 | Cons- Gastroenterology ---
General Information and HPI Consulting Request Date of Consult: 07/06/17 Requested By: Jazmin Simon MD Reason for Consult: Hematemsis Source of Information: patient, old records Exam Limitations: no limitations History of Present Illness: The patient is a 47 year old female presenting with vomiting 2 days ago, with 2 -3 times a day and small amount of BRB each time. No clots. She also reported change in the color of her stool and that's it's becoming darker but no bright red blood or change in the color of the toilet water with blood. Patient also reported dizziness in the last couple of days, decrease oral intake because food aggravate abdominal pain and that sometime caused her confusion because of dehydration. No any diarrhea, chest pain, palpitation, shortness of breath. Past medical history significant for chronic back pain, diabetes mellitus on diet, gastric bypass 2017 with intractable abdominal pain. Patient reported that in Apr 2017 she had gastric bypass and since that time she has been suffering of intractable abdominal pain that's getting worse. EGD by Dr. Simon May 2017: Large gastric pouch, without lesion (erosion, ulcer, nodularity, evident fistula). Retroflexion was performed, and the cardia appeared normal. 2 biopsies were obtained from the pouch. At the gastrojejunal anastomosis, there was an ulceration of greater than 1 cm, with a clean base, and protruding carlos. This area was slightly friable. The anastomosis was otherwise normal, and without stricture or fistulous opening. The short blind jejunal limb was normal. The endoscope was inserted to its felt into the Maria Antonia limb; the mucosa and folds were normal throughout. Impression: * Status post Maria Antonia-en-Y gastric bypass: Marginal ulcer, in the area of protruding carlos Biopsies showed chronic mild gastric ulcer, negative for metaplasia and Helicobacter pylori. Patient mentioned that over the last couple of days the pain has been getting worse, eating and drinking aggravate her pain. It's sharp stabbing in nature in the epigastric area radiate to the mid abdomen associated with nausea for which she takes Zofran multiple time a day. General Appearance Alert, Oriented X3, Cooperative, No Acute Distress Skin No Rashes, No Breakdown, No Significant Lesion Skin Temp/Moisture Exam: Warm/Dry HEENT Atraumatic, PERRLA, EOMI, Mucous Membr. moist/pink Neck Supple Lymphatic no cervical lymphadenopathy Cardiovascular Regular Rate, Normal S1, Normal S2, No Murmurs Lungs Clear to Auscultation, Normal Air Movement Abdomen Normal Bowel Sounds, Soft, diffuse mild tenderness mostly at epigastric area. No rebound. Neurological Normal Speech, Strength at 5/5 X4 Ext, Normal Tone, Sensation Intact, Cranial Nerves 3-12 NL, Reflexes 2+ Extremities No Clubbing, No Cyanosis, No Edema, Normal Pulses In summary we have a 47 yr old lady with a recent Maria Antonia-en-Y gastric bypass, and marginal ulcer in the area of protruding carlos at the gastrojejunal insertion. Slight drop in HCT. Continue PPIs. Do not excpet that this will result in a large volume bleed. Probbale EGD early next week. Allergies/Medications Allergies: Coded Allergies: Benzodiazepines (Severe, SHAKES 10/26/16) chlorzoxazone (From LORZONE) (Severe, RESTLESSNESS 12/12/16) cyclobenzaprine (From FLEXERIL) (Severe, RESTLESSNESS 12/12/16) metoclopramide (From REGLAN) (Severe, TREMORS, SI, FEELING LIKE SHE WANTED TO CUT HER SKIN & RUN 10/27/16) carisoprodol (From SOMA) (Intermediate, RESTLESSNESS 12/12/16) albuterol (SHAKES 10/27/16) cefuroxime (From CEFTIN) (SHAKES 10/26/16) ciprofloxacin (From CIPRO) (SHAKES 10/26/16) clonazepam (From KLONOPIN) (SHAKES 10/27/16) codeine (SHAKES 10/26/16) guaifenesin (From CHERATUSSIN AC) (SHAKES 10/27/16) promethazine (SHAKES 10/26/16) tetanus and diphtheria toxoids (tetanus & diphtheria toxoids) (LOCAL REACTION TO SITE/SWELLING 11/30/15) prochlorperazine (From Compazine) (Severe, UNABLE TO KEEP STILL/HIGH ANXIETY 02/06) meperidine (From Demerol) (ANXIETY 11/30/15) Home Med List: Ondansetron HCl 8 MG TABLET 1 TAB PO TID PRN GI (Reported) Oxycodone HCl 10 MG TABLET 1 TAB PO BID PRN PAIN (Reported) Sucralfate (Carafate) 1 GRAM TABLET 1,000 MG PO 4 TIMES/DAY ulcer Past History Travel History Traveled to [place] past 21 day No Medical History Neurological: NONE EENT: NONE Cardiovascular: NONE Respiratory: NONE Gastrointestinal: PANCREATITIS- Hx "SOD" Hepatic: Lap CCKY 1999; ? SOD post bilary manometry/ES in 2011 at [facility]- Dr. 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 SOD/ES), 05/01/17: gastric bypass Family History Relations & Conditions If Any: Relation not specified for: Unobtainable family history due to adoption Psychosocial History Who Do You Live With? spouse, child (1 of her kids (dtr)) Services at Home: None Primary Language: Nepali Smoking Status: Never Smoked ETOH Use: denies use Illicit Drug Use: denies illicit drug use Living Will? no Power of Senior Etl Developer/HCP? no Functional Ability ADLs Independent: dressing, eating, toileting, bathing. Ambulation: independent IADLs Independent: shopping, housework, finances, food prep, telephone, transportation , medication admin. Exam & Diagnostic Data Vital Signs and I&O Denilson Signs Date Time Temp Pulse Resp B/P B/P Pulse O2 O2 Flow FiO2 Mean Ox Delivery Rate 07/06 0702 97.7 78 20 118/78 97 Room Air 07/05 2212 98.6 77 20 120/70 97 07/05 1840 98.2 72 20 118/60 96 07/05 1755 99.5 64 19 119/59 100 Room Air 07/05 1552 98.0 68 17 140/67 98 Room Air 07/05 1425 98.1 62 16 125/76 99 Room Air 07/05 1302 98.2 64 16 129/74 98 Room Air Intake & Output 07/06 1600 07/06 0400 07/05 1600 07/05 0400 07/04 1600 07/04 0400 Intake Total 748 987 0929 Output Total Balance 074 861 7087 Intake, IV 454 855 0436 Intake, Oral 120 Patient 196 lb 196 lb Weight Weight Reported by Patient Measurement Method Assessment/Plan Assessment/Recommendations: a Consult Acknowledgment - Thank you for your consult request.
[2017-07-06 14:27] VITALS: BP 130/80
[2017-07-06] MEDS ORDERED: PERCOCET 5-3251 EACH PO (15:28)
[2017-07-06] MEDS ORDERED: PANTOPRAZOLE SO40 M1 PO (15:28)
--- NOTE | 2017-07-06 16:26 | PN- Att Addend ---
Attending Addendum Attending Brief Note 47F PMH chronic lower back pain, HTN, gastric bypass April 2017 complicated by clean based 1cm gastric anastomotic ulcer on EGD in late May 2017, placed on PPI. Since then has had persistent epigastric pain, worse when eating , with globus sensation in her lower esophagus with solids. Has been trying to manage this pain with Percocet at home, but has been reluctant to take too much. Having normal BM and passing gas, no signs of bleeding or melena, stable vitals , labs normal. AFVSS NAD NCAT Supple RRR CTAB Soft, tender epigastric, no rebound or guarding No c/c/e Pulses intact A&Ox3 no focal deficits Current Medications Sig/Jimy Start time Last Medication Dose Route Stop Time Status Admin Acetaminophen 650 MG Q6P PRN 07/05 1745 AC PO Hydromorphone HCl 1 MG ONCE ONE 07/06 1000 DC 07/06 IV 07/06 1001 1027 Hydromorphone HCl 1 MG ONCE ONE 07/06 0900 DC 07/06 IV 07/06 0901 0902 Hydromorphone HCl 2 MG ONCE ONE 07/06 0145 DC 07/06 IV 07/06 0146 0204 Hydromorphone HCl 2 MG Q6P PRN 07/05 1930 AC 07/06 PO 0010 Hydromorphone HCl 2 MG Q6P PRN 07/05 1745 DC 07/05 IV 1846 Hydromorphone HCl 0 .STK-MED ONE 07/05 1700 DC .ROUTE Morphine Sulfate 4 MG Q4 PRN 07/06 1430 AC IV Ondansetron HCl 4 MG .STK-MED ONE 07/06 0007 DC IM 07/06 0008 Ondansetron HCl 4 MG Q6P PRN 07/05 1745 AC 07/06 IV 1526 Oxycodone/ 2 TAB ONCE ONE 07/06 1530 DC 07/06 Acetaminophen PO 07/06 1531 1543 Oxycodone/ 1 TAB Q6P PRN 07/05 1745 AC Acetaminophen PO Pantoprazole Sodium 40 MG DAILY 07/06 1000 AC 07/06 IV 0902 Pantoprazole Sodium 0 .STK-MED ONE 07/05 1659 DC IV Sodium Chloride 1,000 ML .[id number] 07/05 1745 DC 07/05 IV 07/06 0704 1830 Sucralfate 1,000 MG 4 TIMES/DAY 07/05 1800 AC 07/06 PO 1430 Laboratory Tests 07/06 0824 Chemistry Sodium (137 - 145 mmol/L) 139 Potassium (3.5 - 5.1 mmol/L) 3.8 Chloride (98 - 107 mmol/L) 103 Carbon Dioxide (22 - 30 mmol/L) 23 Anion Gap (5 - 16) 12 BUN (7 - 17 mg/dL) 4 L Creatinine (0.5 - 1.0 mg/dL) 0.5 Estimated GFR (>60 ml/min) > 60 BUN/Creatinine Ratio (7 - 25 %) 8.0 Hematology CBC w Diff NO MAN DIFF REQ WBC (4.8 - 10.8 /CUMM) 5.9 RBC (4.20 - 5.40 /CUMM) 3.96 L Hgb (12.0 - 16.0 G/DL) 10.7 L Hct (37 - 47 %) 32.9 L MCV (81.0 - 99.0 FL) 83.1 MCH (27.0 - 31.0 PG) 27.1 RDW (11.5 - 14.5 %) 15.6 H Plt Count (130 - 400 /CUMM) 247 MPV (7.4 - 10.4 FL) 8.8 Gran % (42.2 - 75.2 %) 49.3 Lymphocytes % (20.5 - 51.1 %) 39.3 Monocytes % (1.7 - 9.3 %) 8.9 Eosinophils % (0 - 5 %) 1.8 Basophils % (0.0 - 2.0 %) 0.7 Absolute Granulocytes (1.4 - 6.5 /CUMM) 2.9 Absolute Lymphocytes (1.2 - 3.4 /CUMM) 2.3 Absolute Monocytes (0.10 - 0.60 /CUMM) 0.5 Absolute Eosinophils (0.0 - 0.7 /CUMM) 0.1 Absolute Basophils (0.0 - 0.2 /CUMM) 0 PUBS MCHC (33.0 - 37.0 G/DL) 32.6 L Vital Signs Date Time Temp Pulse Resp B/P B/P Pulse O2 O2 Flow FiO2 Mean Ox Delivery Rate 07/06 1427 97.6 96 20 130/80 97 07/06 0702 97.7 78 20 118/78 97 Room Air 07/05 2212 98.6 77 20 120/70 97 07/05 1840 98.2 72 20 118/60 96 07/05 1755 99.5 64 19 119/59 100 Room Air Intake & Output 07/06 1600 07/06 0800 07/06 0000 Intake Total 645 300 Output Total Balance 645 300 Intake, IV 525 300 Intake, Oral 120 Patient 88.904 kg Weight 1. Intractable epigastric pain 2. Esophageal odynophagia 3. History of Maria Antonia-en-Y gastric bypass 4. History of gastric ulcer Plan - Observation in general medicine - Protonix 40mg IV BID - Continue home regimen for pain control of Percocet 2 tabs q4h PRN - Advance diet as tolerated - Continue home medications - DVT PPx
[2017-07-06 22:33] VITALS: BP 116/70
[2017-07-07 07:10] VITALS: BP 116/72
[2017-07-07 09:40] LABS: ABSOLUTE BASOPHIL COUNT 0 /CUMM (0.0-0.2); ABSOLUTE EOSINOPHIL COUNT 0.1 /CUMM (0.0-0.7); ABSOLUTE LYMPH COUNT 2.3 /CUMM (1.2-3.4); ABSOLUTE MONOCYTE COUNT 0.7 /CUMM (0.10-0.60); BASOPHIL % 0.6 % (0.0-2.0); EOSINOPHIL % 1.9 % (0-5); HEMATOCRIT 33.7 % (37-47); MEAN CORPUSCULAR HGB 27.1 PG (27.0-31.0); MEAN CORPUSCULAR HGB CONC 33.1 G/DL (33.0-37.0); MEAN PLATELET VOLUME 8.5 FL (7.4-10.4); PLATELET COUNT 268 /CUMM (130-400); RBC DISTRIBUTION WIDTH 15.1 % (11.5-14.5); RED BLOOD CELL CT 4.11 /CUMM (4.20-5.40); WHITE BLOOD CELL COUNT 7.2 /CUMM (4.8-10.8)
[2017-07-07] MEDS ORDERED: PANTOPRAZOLE SO40 M1 PO ×2 (11:53→13:56)
--- NOTE | 2017-07-07 11:55 | Patient Discharge Instructions ---
Discharge Instructions General Discharge Information You were seen/treated for: Intractable back pain You had these procedures: none Special Instructions: Please follow up with Dr. Cox in 1 week Please follow up with your PCP in 1 week Diet Continue normal diet: Yes Activity Activity Self Limited: Yes Acute Coronary Syndrome Inclusion Criteria At DC or during hospital stay patient has or had the following: ACS DIAGNOSIS No Discharge Core Measures Meds if any: Prescribed or Continued at Discharge Meds if any: NOT Prescribed or Continued at Discharge Congestive Heart Failure Inclusion Criteria At DC or during hospital stay patient has or had the following: CHF DIAGNOSIS No Discharge Core Measures Meds if any: Prescribed or Continued at Discharge Meds if any: NOT Prescribed or Continued at Discharge Cerebrovascular accident Inclusion Criteria At DC or during hospital stay patient has or had the following: CVA/TIA Diagnosis No Discharge Core Measures Meds if any: Prescribed or Continued at Discharge Meds if any: NOT Prescribed or Continued at Discharge Venous thromboembolism Inclusion Criteria VTE Diagnosis No VTE Type NONE VTE Confirmed by (Test) NONE Discharge Core Measures - Per Current guidelines, there needs to be overlap - treatment for the first 5 days of Warfarin therapy. - If discharged on Warfarin prior to 5 days of - overlap therapy, the patient will need to be - assessed for post discharge needs including - *Post discharge parental anticoagulation - *Warfarin and/or parental anticoagulation education - *Follow up date to check INR post discharge At least 5 days overlap therapy as Inpatient No Meds if any: Prescribed or Continued at Discharge Note: Overlap Therapy is Warfarin and Anticoagulant Meds if any: NOT Prescribed or Continued at Discharge
--- NOTE | 2017-07-07 12:20 | PN- Housestaff ---
Suraj ASTUDILLO,Tesha 07/07/17 1220: Subjective Follow-up For: Intractable abd pain Subjective: No N/V. No hemastemsis/BRBPR or melena. continue to complain of pain Review of Systems Constitutional: Reports: no symptoms. Gastrointestinal: Reports: abdominal pain, nausea. Objective Last 24 Hrs of Vital Signs/I&O Vital Signs Date Time Temp Pulse Resp B/P B/P Pulse O2 O2 Flow FiO2 Mean Ox Delivery Rate 07/07 0710 97.8 72 20 116/72 96 Room Air 07/06 2233 98.0 66 20 116/70 97 Room Air 07/06 1427 97.6 96 20 130/80 97 Intake & Output 07/07 1600 07/07 0800 07/07 0000 Intake Total 550 120 120 Output Total Balance 550 120 120 Intake, IV 100 Intake, Oral 450 120 120 Physical Exam General Appearance: Alert, Oriented X3, Cooperative, No Acute Distress Skin: No Significant Lesion HEENT: PERRLA, EOMI, Mucous Membr. moist/pink Cardiovascular: Regular Rate, Normal S1, Normal S2 Lungs: Clear to Auscultation, Normal Air Movement Abdomen: epigastric tenderness Extremities: No Edema, Normal Pulses Current Medications: Current Medications Sig/Jimy Start time Last Medication Dose Route Stop Time Status Admin Acetaminophen 650 MG Q6P PRN 07/05 1745 AC PO Hydromorphone HCl 1 MG ONCE ONE 07/07 1315 DC 07/07 IV 07/07 1316 1322 Hydromorphone HCl 2 MG ONCE ONE 07/06 2245 DC PO 07/06 2246 Hydromorphone HCl 2 MG Q6P PRN 07/05 1930 AC 07/07 PO 1120 Morphine Sulfate 4 MG Q4 PRN 07/06 1430 DC IV Ondansetron HCl 4 MG .STK-MED ONE 07/06 1507 DC IM 07/06 1508 Ondansetron HCl 4 MG Q6P PRN 07/05 1745 AC 07/07 IV 0851 Oxycodone/ 2 TAB Q4P PRN 07/06 1715 AC 07/07 Acetaminophen PO 1251 Oxycodone/ 2 TAB ONCE ONE 07/06 1530 DC 07/06 Acetaminophen PO 07/06 1531 1543 Oxycodone/ 1 TAB Q6P PRN 07/05 1745 DC Acetaminophen PO Pantoprazole Sodium 40 MG BID 07/06 2200 AC 07/07 IV 1104 Pantoprazole Sodium 40 MG DAILY 07/06 1000 DC 07/06 IV 0902 Sucralfate 1,000 MG 4 TIMES/DAY 07/05 1800 AC 07/07 PO 1104 Last 24 Hrs of Lab/Kumar Results Last 24 Hrs of Labs/Mics: Laboratory Tests 07/07/17 0845: Anion Gap 11, Estimated GFR > 60, BUN/Creatinine Ratio 12.0, CBC w Diff NO MAN DIFF REQ, RBC 4.11 L, MCV 82.0, MCH 27.1, RDW 15.1 H, MPV 8.5, Gran % 56.0, Lymphocytes % 32.0, Monocytes % 9.5 H, Eosinophils % 1.9, Basophils % 0.6, Absolute Granulocytes 4.0, Absolute Lymphocytes 2.3, Absolute Monocytes 0.7 H, Absolute Eosinophils 0.1, Absolute Basophils 0, PUBS MCHC 33.1 Lines/Diet/Fluids Lines: peripheral lines Assessment/Plan Assessment: The patient is a 47 year old female presenting with vomiting 2 days ago, with 2 -3 times a day and small amount of BRB each time. No clots. She also reported change in the color of her stool and that's it's becoming darker but no bright red blood or change in the color of the toilet water with blood. Patient also reported dizziness in the last couple of days, decrease oral intake because food aggravate abdominal pain and that sometime caused her confusion because of dehydration. Assessment 1. Intractable epigastric pain 2. Esophageal odynophagia 3. History of Maria Antonia-en-Y gastric bypass 4. History of gastric ulcer Plan - Continue obs - Continue protonix - Continue home regimen for pain control + IV dilaudid for breathrough pain - Advance diet as tolerated - Continue home medications - DVT PPx Problem List: 1. Intractable pain Pain Ratin Pain Location: abd Pain Goal: Remain pain free Pain Plan: give IV dilaudid for breathrough pain Tomorrow's Labs & Rationales: none Jazmin Simon MD 07/07/17 1616: Attending MD Review Statement Attending Statement Attending MD Statement: examined this patient, discuss w/resident/PA/[employer]ILER, agreed w/resident/PA/[employer] NAILER, reviewed EMR data (avail) Attending Assessment/Plan: 47F PMH chronic lower back pain, HTN, gastric bypass April 2017 complicated by clean based 1cm gastric anastomotic ulcer on EGD in late May 2017, placed on PPI. Since then has had persistent epigastric pain, worse when eating , with globus sensation in her lower esophagus with solids. Has been trying to manage this pain with Percocet at home, but has been reluctant to take too much. Having normal BM and passing gas, no signs of bleeding or melena, stable vitals , labs normal. No melena, Hgb stable, tolerating small amounts of PO. AFVSS NAD NCAT Supple RRR CTAB Soft, tender epigastric, no rebound or guarding No c/c/e Pulses intact A&Ox3 no focal deficits 1. Intractable epigastric pain 2. Esophageal odynophagia 3. History of Maria Antonia-en-Y gastric bypass 4. History of gastric ulcer Plan - Stable for discharge - Protonix 40mg BID - Continue home regimen for pain control of Percocet 2 tabs q6h PRN - Continue home medications
[2017-07-07] MEDS ORDERED: OXYCODONE HCL10 M2 PO (12:35)
[2017-07-07] MEDS ORDERED: PERCOCET 5-3251 EACH PO ×2 (13:02→13:06)
[2017-07-07] MEDS ORDERED: ONDANSETRON HCL8 MG PO (13:56)
[2017-07-07 14:29] VITALS: BP 120/84
--- NOTE | 2017-07-07 15:05 | PN- Gastroenterology ---
Assessment/Plan Assessment/Recommendations: Unebentful 24 hrs. No N/V. No hemastemsis/BRBPR or melena. Hct stable. The patient is a 47 year old female presenting with vomiting 2 days ago, with 2 -3 times a day and small amount of BRB each time. No clots. She also reported change in the color of her stool and that's it's becoming darker but no bright red blood or change in the color of the toilet water with blood. Patient also reported dizziness in the last couple of days, decrease oral intake because food aggravate abdominal pain and that sometime caused her confusion because of dehydration. No any diarrhea, chest pain, palpitation, shortness of breath. Past medical history significant for chronic back pain, diabetes mellitus on diet, gastric bypass 2017 with intractable abdominal pain. Patient reported that in Apr 2017 she had gastric bypass and since that time she has been suffering of intractable abdominal pain that's getting worse. EGD by Dr. Simon May 2017: Large gastric pouch, without lesion (erosion, ulcer, nodularity, evident fistula). Retroflexion was performed, and the cardia appeared normal. 2 biopsies were obtained from the pouch. At the gastrojejunal anastomosis, there was an ulceration of greater than 1 cm, with a clean base, and protruding carlos. This area was slightly friable. The anastomosis was otherwise normal, and without stricture or fistulous opening. The short blind jejunal limb was normal. The endoscope was inserted to its felt into the Maria Antonia limb; the mucosa and folds were normal throughout. Impression: * Status post Maria Antonia-en-Y gastric bypass: Marginal ulcer, in the area of protruding carlos Biopsies showed chronic mild gastric ulcer, negative for metaplasia and Helicobacter pylori. Patient mentioned that over the last couple of days the pain has been getting worse, eating and drinking aggravate her pain. It's sharp stabbing in nature in the epigastric area radiate to the mid abdomen associated with nausea for which she takes Zofran multiple time a day. General Appearance Alert, Oriented X3, Cooperative, No Acute Distress Skin No Rashes, No Breakdown, No Significant Lesion Skin Temp/Moisture Exam: Warm/Dry HEENT Atraumatic, PERRLA, EOMI, Mucous Membr. moist/pink Neck Supple Lymphatic no cervical lymphadenopathy Cardiovascular Regular Rate, Normal S1, Normal S2, No Murmurs Lungs Clear to Auscultation, Normal Air Movement Abdomen Normal Bowel Sounds, Soft, diffuse mild tenderness mostly at epigastric area. No rebound. Neurological Normal Speech, Strength at 5/5 X4 Ext, Normal Tone, Sensation Intact, Cranial Nerves 3-12 NL, Reflexes 2+ Extremities No Clubbing, No Cyanosis, No Edema, Normal Pulses In summary we have a 47 yr old lady with a recent Maria Antonia-en-Y gastric bypass, and marginal ulcer in the area of protruding carlos at the gastrojejunal insertion. Slight drop in HCT. Continue PPIs. Do not excpet that this will result in a large volume bleed. Possible EGD in AM. NPO from midnight. Subjective Subjective: x Objective Vital Signs and I&Os zVital Signs Date Time Temp Pulse Resp B/P B/P Pulse O2 O2 Flow FiO2 Mean Ox Delivery Rate 07/07 1429 98.0 65 20 120/84 97 Room Air 07/07 0710 97.8 72 20 116/72 96 Room Air 07/06 2233 98.0 66 20 116/70 97 Room Air Intake & Output 07/07 1600 07/07 0400 07/06 1600 07/06 0400 07/05 1600 07/05 0400 Intake Total 948 043 2513 300 1000 Output Total Balance 414 932 1746 300 1000 Intake, IV 100 1795 905 2125 Intake, Oral 570 120 120 Patient 196 lb 196 lb Weight Weight Reported by Patient Measurement Method Results Pertinent Lab Results: z Laboratory Tests 07/07 07/06 0845 0824 Chemistry Sodium (137 - 145 mmol/L) 140 139 Potassium (3.5 - 5.1 mmol/L) 3.8 3.8 Chloride (98 - 107 mmol/L) 103 103 Carbon Dioxide (22 - 30 mmol/L) 26 23 Anion Gap (5 - 16) 11 12 BUN (7 - 17 mg/dL) 6 L 4 L Creatinine (0.5 - 1.0 mg/dL) 0.5 0.5 Estimated GFR (>60 ml/min) > 60 > 60 BUN/Creatinine Ratio (7 - 25 %) 12.0 8.0 Hematology CBC w Diff NO MAN DIFF REQ NO MAN DIFF REQ WBC (4.8 - 10.8 /CUMM) 7.2 5.9 RBC (4.20 - 5.40 /CUMM) 4.11 L 3.96 L Hgb (12.0 - 16.0 G/DL) 11.1 L 10.7 L Hct (37 - 47 %) 33.7 L 32.9 L MCV (81.0 - 99.0 FL) 82.0 83.1 MCH (27.0 - 31.0 PG) 27.1 27.1 RDW (11.5 - 14.5 %) 15.1 H 15.6 H Plt Count (130 - 400 /CUMM) 268 247 MPV (7.4 - 10.4 FL) 8.5 8.8 Gran % (42.2 - 75.2 %) 56.0 49.3 Lymphocytes % (20.5 - 51.1 %) 32.0 39.3 Monocytes % (1.7 - 9.3 %) 9.5 H 8.9 Eosinophils % (0 - 5 %) 1.9 1.8 Basophils % (0.0 - 2.0 %) 0.6 0.7 Absolute Granulocytes (1.4 - 6.5 /CUMM) 4.0 2.9 Absolute Lymphocytes (1.2 - 3.4 /CUMM) 2.3 2.3 Absolute Monocytes (0.10 - 0.60 /CUMM) 0.7 H 0.5 Absolute Eosinophils (0.0 - 0.7 /CUMM) 0.1 0.1 Absolute Basophils (0.0 - 0.2 /CUMM) 0 0 PUBS MCHC (33.0 - 37.0 G/DL) 33.1 32.6 L 07/05 07/05 1443 1401 Chemistry Lactic Acid Cancelled Urines Urine Color (YEL,AMB,STR) YEL Urine Clarity (CLEAR) HAZY H Urine pH (5.0 - 8.0) 8.0 Ur Specific [place] (1.001 - 1.035) 1.020 Urine Protein (NEG,<30 MG/DL) NEG Urine Ketones (NEG) NEG Urine Nitrite (NEG) NEG Urine Bilirubin (NEG) NEG Urine Urobilinogen (0.1 - 1.0 EU/dl) 0.2 Ur Leukocyte Esterase (NEG) NEG Ur Microscopic SEDIMENT EXAMINED Urine RBC (0 - 5 /HPF) 1-3 Urine WBC (0 - 2 /HPF) RARE Ur Epithelial Cells (NONE,FEW) MANY H Urine Bacteria (NEG/NONE) MOD H Urine Mucus (FEW,NONE) RARE Urine Hemoglobin (NEG) NEG Urine Glucose (N MG/DL) NEG 07/05 1230 Chemistry Sodium (137 - 145 mmol/L) 140 Potassium (3.5 - 5.1 mmol/L) 4.3 Chloride (98 - 107 mmol/L) 101 Carbon Dioxide (22 - 30 mmol/L) 27 Anion Gap (5 - 16) 12 BUN (7 - 17 mg/dL) 7 Creatinine (0.5 - 1.0 mg/dL) 0.5 Estimated GFR (>60 ml/min) > 60 BUN/Creatinine Ratio (7 - 25 %) 14.0 Glucose (65 - 99 mg/dL) 152 H Lactic Acid (0.7 - 2.1 mmol/L) 1.2 Calcium (8.4 - 10.2 mg/dL) 9.2 Total Bilirubin (0.2 - 1.3 mg/dL) 0.4 AST (14 - 36 U/L) 84 H ALT (9 - 52 U/L) 90 H Alkaline Phosphatase (<127 U/L) 303 H Total Protein (6.3 - 8.2 g/dL) 6.8 Albumin (3.5 - 5.0 g/dL) 3.7 Globulin (1.9 - 4.2 gm/dL) 3.1 Albumin/Globulin Ratio (1.1 - 2.2 %) 1.2 Amylase (30 - 110 U/L) 41 Lipase (23 - 300 U/L) 69 Hematology CBC w Diff NO MAN DIFF REQ WBC (4.8 - 10.8 /CUMM) 6.1 RBC (4.20 - 5.40 /CUMM) 4.36 Hgb (12.0 - 16.0 G/DL) 11.6 L Hct (37 - 47 %) 36.3 L MCV (81.0 - 99.0 FL) 83.1 MCH (27.0 - 31.0 PG) 26.6 L RDW (11.5 - 14.5 %) 15.5 H Plt Count (130 - 400 /CUMM) 304 MPV (7.4 - 10.4 FL) 8.4 Gran % (42.2 - 75.2 %) 59.6 Lymphocytes % (20.5 - 51.1 %) 30.6 Monocytes % (1.7 - 9.3 %) 7.8 Eosinophils % (0 - 5 %) 1.1 Basophils % (0.0 - 2.0 %) 0.9 Absolute Granulocytes (1.4 - 6.5 /CUMM) 3.6 Absolute Lymphocytes (1.2 - 3.4 /CUMM) 1.9 Absolute Monocytes (0.10 - 0.60 /CUMM) 0.5 Absolute Eosinophils (0.0 - 0.7 /CUMM) 0.1 Absolute Basophils (0.0 - 0.2 /CUMM) 0.1 PUBS MCHC (33.0 - 37.0 G/DL) 32.0 L
== END 2017-07-07 14:30 ==
LOC: ERH 10:29 → ERHI 15:45 → ENRESERV 17:22 → ENTRNSPT 17:47 → 2NA 18:33 → CMPTRNSPT 18:55 → 2NA 21:10 → ENPENDDIS 07-07 14:19 → 2NA 07-07 14:30
PROVIDERS: Internal Medicine Hematology & Oncology; Physician Assistant Medical; Student in an Organized Health Care Education/Training Program
DX: K25.9 Gastric ulcer, unspecified as acute or chronic, without hemorrhage or perforation (principal); M54.9 Dorsalgia, unspecified; E11.9 Type 2 diabetes mellitus without complications; D64.9 Anemia, unspecified; R11.2 Nausea with vomiting, unspecified; F41.9 Anxiety disorder, unspecified; F11.20 Opioid dependence, uncomplicated; E66.01 Morbid (severe) obesity due to excess calories; R13.19 Other dysphagia; R04.2 Hemoptysis
CPT/HCPCS: 36415; 74177; 81001; 82436; 92610-GN; 93005; 93010; 96361; 96374; 96375; 96376; G0378; G8996-GN; G8997-GN; G8998-GN; J1170; J1200; J2405

== ENCOUNTER 2017-07-09 23:44 | Inpatient (IN) | payer OTHER ==
[~2017-07-09] VITALS: Ht 172.7 cm; Wt 90.7 kg
[~2017-07-09 23:44] MED LIST changes: +ONDANSETRON HCL8 MG PO; +OXYCODONE HCL10 M2 PO; +PANTOPRAZOLE SO40 M1 PO
--- NOTE | 2017-07-10 01:37 | ED GI/GU/ABDOMINAL COMPLAINT ---
History of Present Illness General Chief Complaint: Abdominal Pain/Flank Pain Stated Complaint: PT C/C ABD PAIN PT WAS ADMITTED LEFT AMA SENT PM Source: patient Exam Limitations: no limitations Vital Signs & Intake/Output Vital Signs & Intake/Output Vital Signs Date Time Temp Pulse Resp B/P B/P Pulse O2 O2 Flow FiO2 Mean Ox Delivery Rate 07/10 0122 98.6 75 18 132/86 96 Room Air Allergies Coded Allergies: Benzodiazepines (Severe, SHAKES 10/26/16) chlorzoxazone (From LORZONE) (Severe, RESTLESSNESS 12/12/16) cyclobenzaprine (From FLEXERIL) (Severe, RESTLESSNESS 12/12/16) metoclopramide (From REGLAN) (Severe, TREMORS, SI, FEELING LIKE SHE WANTED TO CUT HER SKIN & RUN 10/27/16) carisoprodol (From SOMA) (Intermediate, RESTLESSNESS 12/12/16) albuterol (SHAKES 10/27/16) cefuroxime (From CEFTIN) (SHAKES 10/26/16) ciprofloxacin (From CIPRO) (SHAKES 10/26/16) clonazepam (From KLONOPIN) (SHAKES 10/27/16) codeine (SHAKES 10/26/16) guaifenesin (From CHERATUSSIN AC) (SHAKES 10/27/16) promethazine (SHAKES 10/26/16) tetanus and diphtheria toxoids (tetanus & diphtheria toxoids) (LOCAL REACTION TO SITE/SWELLING 11/30/15) prochlorperazine (From Compazine) (Severe, UNABLE TO KEEP STILL/HIGH ANXIETY 02/06) meperidine (From Demerol) (ANXIETY 11/30/15) Reconcile Medications Ondansetron HCl 8 MG TABLET 1 TAB PO TID PRN GI . Oxycodone HCl 10 MG TABLET 1 TAB PO BID PRN PAIN Oxycodone HCl/Acetaminophen (Percocet 5-325 MG Tablet) 5 MG-325 MG TABLET 2 TAB PO Q6 PRN PAIN SCALE 4-6 (MODERATE) Pantoprazole Sodium 40 MG TABLET.DR 1 TAB PO BID HEARTBURN . Sucralfate (Carafate) 1 GRAM TABLET 1,000 MG PO 4 TIMES/DAY ulcer Triage Note: PT TO TRIAGE C/O MID-EPIGASTRIC PAIN. PER PT WAS D/C FROM HOSPITAL SATURDAY. PER PT PAIN HAS NOT BEEN CONTROLLED DESPITE BEING D/C ON PROTONIX. PT HX: PEPTIC ULCER. DENIES N/V/D. Triage Nurses Notes Reviewed? yes ? n Is pt currently ? No Onset: Gradual Duration: day(s): Timing: recent history Location: epigastric Radiation: no radiation Activities at Onset: none Modifying Factors: Worsens With: vomiting. Associated Symptoms: abdominal pain, nausea/vomiting HPI: 47 yo woman, h/o ulceration at site of gastric stapling, recently left AMA, presents with continued abdominal pain. "Dr Simon told me to come back because I vomited again and some blood came out." Past History Travel History Traveled to [place] past 21 day No Medical History Any Pertinent Medical History? see below for history Neurological: NONE EENT: NONE Cardiovascular: NONE Respiratory: NONE Gastrointestinal: PANCREATITIS- Hx "SOD" PEPTIC ULCER Hepatic: Lap CCKY 1999; ? SOD post bilary manometry/ES in 2011 at [facility]- Dr. Jackson Renal: NONE Musculoskeletal: chronic back pain, disk herniation, degen joint disease Psychiatric: anxiety, opioid dependence Endocrine: diabetes, obesity Blood Disorders: anemia Cancer(s): NONE [employer]PER[employer] AUTOMATIC/Reproductive: NONE History of MRSA: No History of VRE: No History of CDIFF: No Tetanus Vaccine: 06/14/13 Surgical History Surgical History: cholecystectomy (lap 1999; ? SOD/ES), 05/01/17: gastric bypass Psychosocial History Who do you live with Spouse Services at Home None What is your primary language Guyanese Tobacco Use: Never used ETOH Use: denies use Family History Family History, If Any: Relation not specified for: Unobtainable family history due to adoption Hx Contributory? No Review of Systems Review of Systems Constitutional: Reports: no symptoms. EENTM: Reports: no symptoms. Respiratory: Reports: no symptoms. Cardiovascular: Reports: no symptoms. GI: Reports: no symptoms. Genitourinary: Reports: no symptoms. Musculoskeletal: Reports: no symptoms. Skin: Reports: no symptoms. Neurological/Psychological: Reports: no symptoms. Hematologic/Endocrine: Reports: no symptoms. Immunologic/Allergic: Reports: no symptoms. All Other Systems: Reviewed and Negative Physical Exam Physical Exam General Appearance: well developed/nourished, mild distress Head: atraumatic, normal appearance Eyes: Bilateral: normal appearance. Ears, Nose, Throat, Mouth: hearing grossly normal, moist mucous membrane Neck: normal inspection, supple, full range of motion Respiratory: normal breath sounds, chest non-tender, no respiratory distress, quiet respiration, lungs clear Cardiovascular: regular rate/rhythm Gastrointestinal: normal bowel sounds, soft, mild mid epigastric tenderness to palpation. no rebound. no guarding. Back: normal inspection Extremities: normal range of motion Neurologic/Psych: no motor/sensory deficits, awake, alert, oriented x 3 Skin: intact, normal color, warm/dry Core Measures ACS in differential dx? No Sepsis Present: No Sepsis Focused Exam Completed? No Progress Differential Diagnosis: ugi bleed due to gastritis vs ulcer vs other vs lower gi bleed. Plan of Care: Orders Procedure Date/time Status Nothing by Mouth 07/10 B Active Saline Lock 07/[address] in observation 07/10 0504 Active Misc Message 07/10 0504 Active ED Holding Orders 07/10 0504 Active Vital Signs 07/10 0504 Active Code Status 07/10 0504 Active TROPONIN LEVEL 07/10 0138 Complete PARTIAL THROMBOPLASTIN TIME 07/10 0138 Complete PROTHROMBIN TIME 07/10 0138 Complete LIPASE 07/10 0138 Complete HEPATIC FUNCTION PANEL 07/10 0138 Complete CBC WITHOUT DIFFERENTIAL 07/10 0138 Complete BASIC METABOLIC PANEL 07/10 0138 Complete AMYLASE 07/10 0138 Complete EKG 07/10 0138 Active Current Medications Sig/Jimy Start time Last Medication Dose Stop Time Status Admin Sodium Chloride 1,000 ML BOLUS ONE 07/10 0415 AC 07/10 (Normal Saline 0.9%) 07/10 0514 0427 Pantoprazole Sodium 80 MG ONCE ONE 07/10 0145 AC 07/10 (Protonix) 07/10 1144 0427 Dextrose/Water 100 ML (D5W) Laboratory Tests 07/10/17 0410: PT 10.7, INR 1.02, APTT 29, CBC w Diff NO MAN DIFF REQ, RBC 4.90, MCV 82.8, MCH 26.8 L, RDW 15.4 H, MPV 8.2, Gran % 53.2, Lymphocytes % 36.0, Monocytes % 8.6, Eosinophils % 1.8, Basophils % 0.4, Absolute Granulocytes 4.4, Absolute Lymphocytes 2.9, Absolute Monocytes 0.7 H, Absolute Eosinophils 0.1, Absolute Basophils 0, PUBS MCHC 32.3 L 07/10/17 0358: Anion Gap 16, Estimated GFR > 60, BUN/Creatinine Ratio 22.0, Glucose 139 H, Calcium 9.7, Total Bilirubin 0.4, Direct Bilirubin 0.3, AST 43 H, ALT 49, Alkaline Phosphatase 309 H, Troponin I < 0.01, Total Protein 7.9, Albumin 4.4, Amylase 52, Lipase 82 Initial ED EKG: normal axis, normal intervals, normal p-waves, normal QRS complex, normal sinus rhythm Departure Departure Disposition: STILL A PATIENT Condition: Stable Clinical Impression Primary Impression: Upper GI bleed Referrals: Dilcia Ahn MD (PCP/Family) Departure Forms: Customer Survey General Discharge Information Observation Note Spoke With: Yessy ASTUDILLO,Mary Ann Physician Advisor Notified: RANDA ARZATE DO Place Patient In: Non-ED OBS Care Area Rationale for Observation: My rational for observation is as follows . pt with recurrent hemetesis and abdominal pain, clinically with dry mucosa/ dehydration... pt has been unsuccessful with outpatient management of her symptoms... pt merits iv fluids, iv protonix, carafate, GI consult.... discussed with GI team... they will evaluate this AM. Pt not orthostatic... pt stable for gen med.
[2017-07-10 04:23] LABS: ABSOLUTE BASOPHIL COUNT 0 /CUMM (0.0-0.2); ABSOLUTE EOSINOPHIL COUNT 0.1 /CUMM (0.0-0.7); ABSOLUTE GRANULOCYTE CT 4.4 /CUMM (1.4-6.5); ABSOLUTE LYMPH COUNT 2.9 /CUMM (1.2-3.4); ABSOLUTE MONOCYTE COUNT 0.7 /CUMM (0.10-0.60); BASOPHIL % 0.4 % (0.0-2.0); EOSINOPHIL % 1.8 % (0-5); GRANULOCYTE % 53.2 % (42.2-75.2); MEAN CORPUSCULAR HGB 26.8 PG (27.0-31.0); MEAN CORPUSCULAR HGB CONC 32.3 G/DL (33.0-37.0); MEAN CORPUSCULAR VOLUME 82.8 FL (81.0-99.0); MEAN PLATELET VOLUME 8.2 FL (7.4-10.4); PLATELET COUNT 340 /CUMM (130-400); RBC DISTRIBUTION WIDTH 15.4 % (11.5-14.5); WHITE BLOOD CELL COUNT 8.2 /CUMM (4.8-10.8)
[2017-07-10 04:28] LABS: HEMATOCRIT 40.6 % (37-47)
[2017-07-10 04:29] LABS: PT 10.7 SEC (9.4-12.5); PTT 29 SEC (25-37)
--- NOTE | 2017-07-10 05:26 | History & Physical ---
Daniel ASTUDILLO,[facility] 07/10/17 0525: General Information and HPI MD Statement: I have seen and personally examined KASHMIR MARTÍNEZ and documented this H& P. The patient is a 47 year old F who presented with a patient stated chief complaint of [abd pain]. Source of Information: patient, old records Exam Limitations: no limitations History of Present Illness: Patient is 47-year-old female with past medical history of chronic back pain, diabetes mellitus, gastric bypass 2016 presenting to ED with complaint of nausea vomiting and abdominal pain. The patient had gastric bypass done in April 2017 and since then she has been experiencing abdominal pain that has been progressively getting worse with time. Patient underwent endoscopy by Dr. Simon in May 2017 and the biopsies showed biopsies showed chronic mild gastric ulcer, negative for metaplasia and Helicobacter pylori. She was recently admitted in [facility] and had a 2- day stay from 07/06 to 07/07 for similar complaints. Patient reports 10 out of 10 in pain sharp in nature with feeling of somebody pulling out the internal organs. Pain associated with epigastric region and radiating down to the umbilicus. It is aggravated by eating or drinking and relieved by pain medication. Patient reports an episode of vomiting in the morning streaked with blood. Also reports 1 episode of diarrhea loose stool orange in color no blood. Reports was feeling nauseous as well. On review of system patient reports dizziness and reports poor intake because of aggravation of pain. Patient had MRCP scheduled yesterday which she did not underwent because she felt very dehydrated and couldn't drive Of note patient does not want to be evaluated and treated by Dr. Mota ( surgeon) who performed the procedure initially and did not believe that she was in pain and she has fired him from her care Allergies/Medications Allergies: Coded Allergies: Benzodiazepines (Severe, SHAKES 10/26/16) chlorzoxazone (From LORZONE) (Severe, RESTLESSNESS 12/12/16) cyclobenzaprine (From FLEXERIL) (Severe, RESTLESSNESS 12/12/16) metoclopramide (From REGLAN) (Severe, TREMORS, SI, FEELING LIKE SHE WANTED TO CUT HER SKIN & RUN 10/27/16) carisoprodol (From SOMA) (Intermediate, RESTLESSNESS 12/12/16) albuterol (SHAKES 10/27/16) cefuroxime (From CEFTIN) ([employer] 10/26/16) ciprofloxacin (From CIPRO) ([employer] 10/26/16) clonazepam (From KLONOPIN) ([employer] 10/27/16) codeine (SHAZettaCore 10/26/16) guaifenesin (From CHERATUSSIN AC) ([employer] 10/27/16) promethazine (SHAKES 10/26/16) tetanus and diphtheria toxoids (tetanus & diphtheria toxoids) (LOCAL REACTION TO SITE/SWELLING 11/30/15) prochlorperazine (From Compazine) (Severe, UNABLE TO KEEP STILL/HIGH ANXIETY 02/06) meperidine (From Demerol) (ANXIETY 11/30/15) morphine ([employer] 07/10/17) Past History Travel History Traveled to [place] past 21 day No Medical History Neurological: NONE EENT: NONE Cardiovascular: NONE Respiratory: NONE Gastrointestinal: PANCREATITIS- Hx "SOD" PEPTIC ULCER Hepatic: Lap CCKY 1999; ? SOD post bilary manometry/ES in 2011 at [facility]- Dr. 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 SOD/ES), 05/01/17: gastric bypass Past Family/Social History Family History Relations & Conditions if any Relation not specified for: Unobtainable family history due to adoption Psychosocial History Who Do You Live With? spouse, child (1 of her kids (dtr)) Services at Home: None Primary Language: Ukrainian Smoking Status: Never Smoked ETOH Use: denies use Living Will? no Power of Clinical Marketing Manager/HCP? no Functional Ability ADLs Independent: dressing, eating, toileting, bathing. Ambulation: independent IADLs Independent: shopping, housework, finances, food prep, telephone, transportation , medication admin. Review of Systems Review of Systems Constitutional: Reports: see HPI. Denies: fever, weakness. Cardiovascular: Denies: orthopena, palpitations. Respiratory: Reports: no symptoms. GI: Reports: no symptoms, diarrhea, nausea, vomiting. Genitourinary: Reports: no symptoms. Musculoskeletal: Reports: no symptoms. Exam & Diagnostic Data Last 24 Hrs of Vital Signs/I&O Vital Signs Date Time Temp Pulse Resp B/P B/P Pulse O2 O2 Flow FiO2 Mean Ox Delivery Rate 07/10 0122 98.6 75 18 132/86 96 Room Air Intake & Output 07/10 0800 07/10 0000 07/09 1600 Intake Total Output Total Balance Patient 200 lb Weight Physical Exam General Appearance Alert, Oriented X3, Cooperative, No Acute Distress Skin No Rashes HEENT Atraumatic, PERRLA Cardiovascular Normal S1, Normal S2 Lungs Clear to Auscultation, Normal Air Movement Abdomen Normal Bowel Sounds, Soft, epigastric tenderness Neurological Normal Speech Last 24 Hrs of Labs/Kumar: Laboratory Tests 07/10/17 0410: PT 10.7, INR 1.02, APTT 29, CBC w Diff NO MAN DIFF REQ, RBC 4.90, MCV 82.8, MCH 26.8 L, RDW 15.4 H, MPV 8.2, Gran % 53.2, Lymphocytes % 36.0, Monocytes % 8.6, Eosinophils % 1.8, Basophils % 0.4, Absolute Granulocytes 4.4, Absolute Lymphocytes 2.9, Absolute Monocytes 0.7 H, Absolute Eosinophils 0.1, Absolute Basophils 0, PUBS MCHC 32.3 L 07/10/17 0358: Anion Gap 16, Estimated GFR > 60, BUN/Creatinine Ratio 22.0, Glucose 139 H, Calcium 9.7, Total Bilirubin 0.4, Direct Bilirubin 0.3, AST 43 H, ALT 49, Alkaline Phosphatase 309 H, Troponin I < 0.01, Total Protein 7.9, Albumin 4.4, Amylase 52, Lipase 82 Diagnostic Data Other Results CT ABDOMEN AND PELVIS WITH CONTRAST 07/05/17 IMPRESSION: There are surgical changes status post gastric bypass. The previously identified fluid collection located immediately beneath the gastroenteric anastomosis is stable in size, measuring 3.5 x 2.6 cm. As stated previously this collection is nonspecific. It could represent a postoperative seroma. Assessment/Plan Assessment: The patient is a 47 year old female with past medical history significant for chronic back pain, diabetes mellitus on diet who presented to ED with chief complaint of intractable abdominal pain that started after the gastric bypass she had in April 2017. -VS WNL -Pertinent labs AST 43, alkaline phosphatase 309 The patient is being admitted to general medicine floor and is being treated and evaluated for following conditions #Upper GI bleed She is status post Maria Antonia-en-Y gastric bypass. She has had multiple admissions for chronic abdominal pain and recent endoscopy showed chronic mild gastric ulcer ( Marginal ulcer, in the area of protruding carlos)Biopsies showed chronic mild gastric ulcer, negative for metaplasia and Helicobacter pylori. patient is reporting blood in her vomit. She needs to be evaluated by GI Her H&H is stable as compared to last visit , she is also hemodynamically stable. -GI consult -Monitor CBCs closely, Type and crossmatch 2 wide IV bore cannula's -Continue IV Protonix, gentle hydration and Sucralfate -Zofran for nausea -Pain pathway #Elevated alkaline phosphatase Tonically evaluated. Patient was supposed to go for MRCP yesterday morning which she skipped because she was feeling dehydrated and did not think that she will be able to drive. -Reschedule MRCP inpt vs outpt #DM Accu-Cheks insulin sliding scale patient is currently not on any antidiabetic medication #FC/NPO in anticipation of procedure /DVT prophylaxis with ALPS only As Ranked By This Provider Problem List: 1. Elevated LFTs 2. Intractable pain 3. Upper GI bleed Core Measures/Misc (03/10) Acute Coronary Syndrome ACS Diagnosis: No Congestive Heart Failure Congestive Heart Failure Diagnosis No Cerebrovascular Accident CVA/TIA Diagnosis: No VTE (View Protocol) VTE Risk Factors Age>40 No Mechanical VTE Prophylaxis d/t N/A MechProphylax Ordered No VTE Pharm Prophylaxis d/t Other (GI bleed) Sepsis (View protocol) Sepsis Present: No Magda Barrera 07/10/17 0713: General Information and HPI Allergies/Medications Home Med list Acetaminophen 500 MG TABLET 2 TAB PO PRN PAIN (Reported) Dexlansoprazole (Dexilant) 60 MG JESUS MANUEL.BP 1 CAP PO DAILY GI (Reported) Multivitamin (Multi-Vitamin Daily) 1 EACH TABLET 1 TAB PO DAILY SUPPLEMENT ( Reported) Ondansetron HCl 8 MG TABLET 1 TAB PO TID PRN GI . Oxycodone HCl 10 MG TABLET 1 TAB PO TID PRN PAIN (Reported) Oxycodone HCl/Acetaminophen (Percocet 5-325 MG Tablet) 5 MG-325 MG TABLET 2 TAB PO Q6 PRN PAIN SCALE 4-6 (MODERATE) Pantoprazole Sodium 40 MG TABLET.DR 1 TAB PO BID HEARTBURN . Sucralfate (Carafate) 1 GRAM TABLET 1,000 MG PO 4 TIMES/DAY ulcer Resident Review Statement Resident Statement: examined this patient, discussed with sales intern, agreed with sales intern Other Findings: Patient is a 47-year-old woman with past medical history significant for diabetes mellitus, gastric bypass surgery April 2017, chronic back pain presented to the ED for evaluation of bloody vomiting and epigastric pain. Patient is recently had a gastric bypass surgery in April [address] Richards and since then patient has been having epigastric discomfort. She was seen by Dr. Simon in May and had a endoscopy done that showed chronic bile gastric ulcer biopsies were negative for metaplasia or Helicobacter pylori. Patient was recently kept in observation for 24 hours in [facility], for the similar complaints (07/06 to 07/07 ) and discharged, Since then patient has been having worsening epigastric pain, associated with vomiting blood. Patient could not able tolerate anything by mouth reported dizziness with lightheadedness. On examination: General Appearance:alert oriented 3, mild to moderate distress Skin: Grossly normal HEENT: PERRLA Neck: Supple, No JVD Cardiovascular: Regular Rate, Normal S1, Normal S2. Lungs: Lungs clear to auscultation bilaterally. Abdominal exam : Severe epigastric tenderness without any rebound Neurological: Grossly intact Extremities : No edema in the lower extremities Problem list 1. Severe epigastric pain with bloody vomiting likely upper GI bleed 2. Elevated alkaline phosphatase 3. Diabetes mellitus 1. Severe epigastric pain with bloody vomiting likely upper GI bleed * Keep the patient in observation for 24-48 ours * GI consult has been called for possible endoscopy today. * Keep the patient nothing by mouth * Continue IV Protonix 40 mg twice a day * Monitor CBG every 6-8 hours. * Watch for any hemodynamic instability * Adequate pain control with morphine/ * Continue hydration * Zofran as needed for nausea vomiting 2. Elevated alkaline phosphatase * Repeat ALP. 3. Diabetes mellitus * Patient is currently not on any hypoglycemic agents * Monitor Accu-Cheks * Check hemoglobin A1c. DVT prophylaxis ONLY in the setting of GI bleed Severe pain control with IV Dilaudid(avoid morphine-makes the patient shaky) Patient is Jazmin Simon MD 07/10/17 1232: Attending MD Review Statement Attending Statement Attending MD Statement: examined this patient, discuss w/resident/PA/QUILL CLEANING MACHINE OPERATOR, agreed w/resident/PA/QUILL CLEANING MACHINE OPERATOR, reviewed EMR data (avail)
--- NOTE | 2017-07-10 07:47 | Cons- Gastroenterology ---
General Information and HPI Consulting Request Date of Consult: 07/10/17 Requested By: Mary Ann Krishnamurthy MD Reason for Consult: I was just notified of a request for a GI consult to assess chronic epigastric pain in a bariatric patient with a recently dxd marginal ulcer, who allegedly had scant hematemesis 1 day BUNG DROPPER, with an exceptionally stable Hgb. I previously saw her in inpatient GI consultation 06/19/17, at which point, she switched to Dr. Misa Simon. Source of Information: patient, old records Exam Limitations: no limitations History of Present Illness: 47 y/o female, followed as an outpatient by Dr. Ahn for primary care, previously by Dr. Garcia in [place], [place], for GI & now identifies herself as Dr. Misa Simon's GI patient (previously by Dr. Kishore Golden in [place], [place]), Dr. Beasley for pain management (chronic back pain/DJD/HD), Dr. Keane for CRS, & Dr. Burnett for bariatrics (*now claims she is seeking another bariatric surgeon), post lap GJ bypass 05/01/17 for BMI 38, JJ, DM, GERD. 05/02/17: Postop UGI series- unremarkable, without leak or obstruction. She has a convoluted history. Additionally, she has a chronically elevated alk phos, reportedly followed by Dr. Garcia. She is post-lap CCKY [address] Rogers at . She has never had a liver biopsy. 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 Jackson at [facility]. Apparently she had biliary manometry approximately 2011 at [facility] & a papillotomy at some point.*According to the CAD Best, the patient's alk phos has been in the mid-100 range since 10/2016, but increased to the mid-300 range in 05/2017. She denied any new medications or herbal meds re: LFTs. She denied any jaundice, dark urine, light stools, or confusion. She denied any history of hepatitis, needlesticks, body piercings (aside from earrings), or tattoos. She claimed she had a "normal colonoscopy with normal random bxs" by Dr. Kishore Golden in [place] in 2014 for evaluation of diarrhea then (since resolved off Metformin), but that "he should have known it was from her Metformin" & so she then switched to Dr. Garcia for GI. She sees CRS for a "thrombosed hemorrhoid". Family history is unknown regarding any GI Ca, GI disease, or inherited liver disease, as the patient is adopted. 06/15/17: CT AP WITH IV CONTRAST- The patient is status post gastric bypass surgery. There is a 4.1 cm TV by 2.6 cm AP focal fluid collection located immediately beneath the gastroenteric anastomosis on image 27 of series 2. This collection is nonspecific and could reflect a postoperative seroma or resolving hematoma. An infected collection is felt to be less likely given the lack of inflammatory changes around this area. There is no contrast leakage. There is no bowel obstruction. Normal liver & spleen. Post CCKY. No mention of any dilated ducts. No ascites. Partial fatty atrophy of pancreas. The patient claimed she has had chronic, dull, epigastric pain "14/01", across the upper abdomen, without radiation to the back, since the GJ bypass surgery, although she does see pain management for chronic back pain. She has numerous alleged allergies and/or medication-related side effects (at least 15 listed meds). She is 5'6". She stated her maximum weight was 287 lbs at the time of IVF in 2009. She got down to 226 lbs pre-bariatric surgery, & claimed she had lost 24 lbs since her bariatric surgery, "now weighing 202 lbs". In addition to the Zofran ODT, she reportedly was also on Dexilant 60 mg daily & Oxycodone ( Percocet). She claimed she is intolerant of Protonix, which caused "shakes". She denied any ASA, NSAIDS, cigarettes, EtOH, or street drugs (although she is on rx narcotics). She claimed she had [address] Garcia pre-bariatric surgery, & was told of "an ulcer that healed" (txd with Dexilant), & was "H. pylori- negative". She has a history of anxiety, depression, & anemia (w/o transfx). 06/18/17: WBC 7.6, H/H 12.3/38.6, MCV 82.8, RDW 15.6, PLT 447, glucose 111, BUN/ Cr 6/0.4, GFR > 60, Na 142, K 4.2, HCO3 23, AG 13, lactate 1.3, normal lipase 102, Ca 9.7, albumin 4.3, globulin 3.7, TBil 0.3, alk phos 348, AST 40, ALT 63, serum HCG- negative. (No U/A). *Differential diagnoses at the time of my 06/19/17: GI consult for the patient's epigastric symptoms post 05/01/17: lap GJ bypass, included marginal ulcer, rule out recurrent PUD, possible internal hernia, doubt fistula, etc. There was a small seroma vs. hematoma on the 06/15/17: CT AP with IV contrast, which was probably unrelated. Rule out malingering and/or drug seeking. The somewhat chronically elevated alk phos with mild transaminitis was noted. Rule out fatty liver- multiple risk factors for this, including obesity, DM, etc., (although none seen on CT). 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 Jackson in 2011, post 1999: lap CCKY. This may or may not be related to her symptoms of chronic pain. Her lipase was normal. Her chroic opioid use could be exacerbating the "SOD". *In the midst of this GI consultation, I found out that the patient wanted my partner, Dr. Misa Simon, to perform her EGD & assume her GI care while at [place] & she subsequently had called the office after her discharge. A liver workup was planned for her chronically elevated alkaline phosphatase, apparently , an outpt MRCP was ordered by the office. 06/19/17: EGD with bxs to [facility]-en-Y limb, per Dr. Misa Simon (done for eppigastric pain & nausea)- GEJ at 40 cm with intermittent patent ring, 3 columns of blue venous structures in the distal esophagus, not clearly varices, large gastric pouch, 1 cm marginal ulcer with clean base at the GJ anastomosis. No stricture or fistula. Biopsies of gastric pouch- mild chronic fundic gastritis, H. pylori negative, no acute activity, no intestinal metaplasia. *PPI BID and Carafate suspension 1 g, 4 times a day before meals and at bedtime were rxd. The patient was readmitted to [place] 07/05/17 to 07/07/17, with persistent pain. The patient denied narcotic addiction, but previous bariatric notes stated the patient was narcotic dependent. She was seen by Dr. Fuentes in GI consultation 07/06/17 and was discharged 07/07/17. 07/05/17: CT ABDOMEN AND PELVIS WITH IV/PO CONTRAST- There are surgical changes status post gastric bypass. The previously identified fluid collection located immediately beneath the gastroenteric anastomosis is stable in size, measuring 3.5 x 2.6 cm. As stated previously this collection is nonspecific. It could represent a postoperative seroma. Normal liver. No focal hepatic defects. No dilated bile ducts. Post CCKY. Incidental 3.1 x 2.7 left ovarian cyst. The patient returned to the [place] ER 07/09/17 5 11:44 PM, again complaining of epigastric pain, described as sharp, constant, stabbing, "10 out of 10" and localized nature, *despite medical tx with PPI BID, Zofran ODT, Carafate, & Oxycodone. She had nausea. She claimed she had 1 episode of vomiting scant amount of blood-streaked vomitus 1 day BUNG DROPPER. There was no positional component. She denied any fevers, chills, jaundice, or dark urine. She claimed her stools were dark 1 week BUNG DROPPER, but were now light brown in color. Her symptoms were worse postprandially. She denied any GERD, odynophagia, or dysphagia. She had chronic early satiety as expected, postoperatively. Her bowel movements were stable. She had 1 episode of diarrhea 1 day BUNG DROPPER, otherwise there was no constipation, obstipation, tenesmus, or rectal bleeding. She denied any unintentional weight loss. PO intake was fair. She had no symptoms of UTI or URI. She had no SODA CLERK symptoms. There was no gross hematuria or vaginal spotting. Upon arrival to the [place] ER, BP 132/86, P 75, R 18, T 98.6, O2 sat RA 96%. She was hemodynamically stable. She was given IV Protonix, Zofran, & IV NS. She was requesting pain medications, & specifically asked for Dilaudid. She was essentially admitted for pain control and a very soft "UGI bleed". She refused a digital rectal exam. 07/10/17: Admission labs- WBC 8.2, H/H 13.1/40.6, MCV 82.8, RDW 15.4, PLT 340, PT 10.7, INR 1.02, PTT 29, glucose 139, BUN/Cr 11/0.5, GFR > 60, Na 143, K 3.9, HCO3 24, AG 16, nl amylase 52, nl lipase 82, Ca 9.7, albumin 4.4, globulin 3.5, TBil 0.4, DBil 0.3, chronic alk phos 309, AST 43, ALT 49, troponin < 0.01. [No Utox or U/A was obtained on admission]. Allergies/Medications Allergies: Coded Allergies: Benzodiazepines (Severe, SHAKES 10/26/16) chlorzoxazone (From LORZONE) (Severe, RESTLESSNESS 12/12/16) cyclobenzaprine (From FLEXERIL) (Severe, RESTLESSNESS 12/12/16) metoclopramide (From REGLAN) (Severe, TREMORS, SI, FEELING LIKE SHE WANTED TO CUT HER SKIN & RUN 10/27/16) carisoprodol (From SOMA) (Intermediate, RESTLESSNESS 12/12/16) albuterol (SHAKES 10/27/16) cefuroxime (From CEFTIN) (SHAKES 10/26/16) ciprofloxacin (From CIPRO) (SHAKES 10/26/16) clonazepam (From KLONOPIN) (SHAKES 10/27/16) codeine (SHAKES 10/26/16) guaifenesin (From CHERATUSSIN AC) (SHAKES 10/27/16) promethazine (SHAKES 10/26/16) tetanus and diphtheria toxoids (tetanus & diphtheria toxoids) (LOCAL REACTION TO SITE/SWELLING 11/30/15) prochlorperazine (From Compazine) (Severe, UNABLE TO KEEP STILL/HIGH ANXIETY 02/06) meperidine (From Demerol) (ANXIETY 11/30/15) morphine ([facility] 07/10/17) Home Med List: Ondansetron HCl 8 MG TABLET 1 TAB PO TID PRN GI . Oxycodone HCl 10 MG TABLET 1 TAB PO BID PRN PAIN Oxycodone HCl/Acetaminophen (Percocet 5-325 MG Tablet) 5 MG-325 MG TABLET 2 TAB PO Q6 PRN PAIN SCALE 4-6 (MODERATE) Pantoprazole Sodium 40 MG TABLET.DR 1 TAB PO BID HEARTBURN . Sucralfate (Carafate) 1 GRAM TABLET 1,000 MG PO 4 TIMES/DAY ulcer Current Medications: Current Medications Sig/Jimy Start time Last Medication Dose Route Stop Time Status Admin Acetaminophen 650 MG Q6P PRN 07/10 0530 AC PO Acetaminophen 1,000 MG Q6P PRN 07/10 0530 AC IV Famotidine 20 MG BID 07/10 1000 AC IV Heparin Sodium 5,000 UNIT Q8 07/10 0823 AC (Porcine) SC Hydromorphone HCl 0 .STK-MED ONE 07/10 0821 DC .ROUTE Hydromorphone HCl 2 MG Q8P PRN 07/10 0645 AC 07/10 IV 0825 Hydromorphone HCl 0 .STK-MED ONE 07/10 0519 DC .ROUTE Hydromorphone HCl 1 MG ONCE ONE 07/10 0515 DC 07/10 IV 07/10 0516 0524 Morphine Sulfate 0 .STK-MED ONE 07/10 0641 DC .ROUTE Morphine Sulfate 2 MG Q4P PRN 07/10 0615 DC 07/10 IV 0640 Ondansetron HCl 4 MG Q6P PRN 07/10 0530 AC IV Ondansetron HCl 0 .STK-MED ONE 07/10 0339 DC .ROUTE Ondansetron HCl 4 MG ONCE ONE 07/10 0145 DC 07/10 IV 07/10 0146 0427 Pantoprazole Sodium 40 MG BID 07/10 1000 CAN IV Pantoprazole Sodium 0 .STK-MED ONE 07/10 0343 DC IV Pantoprazole Sodium 80 MG ONCE ONE 07/10 0145 AC 07/10 Dextrose/Water 100 ML IV 07/10 1144 0427 Sodium Chloride 1,000 ML Q10H 07/10 0800 AC 07/10 IV 0825 Sodium Chloride 1,000 ML BOLUS ONE 07/10 0415 DC 07/10 IV 07/10 0514 0427 Past History Travel History Traveled to [place] past 21 day No Medical History Blood Transfusion Hx: No Neurological: NONE EENT: NONE Cardiovascular: NONE Respiratory: NONE Gastrointestinal: PANCREATITIS- Hx "SOD" PEPTIC ULCER Hepatic: Lap CCKY 1999; ? SOD post bilary manometry/ES in 2011 at [facility]- Dr. Jackson Renal: NONE Musculoskeletal: chronic back pain, disk herniation, degen joint disease Psychiatric: anxiety, opioid dependence Endocrine: diabetes, obesity Blood Disorders: anemia Cancer(s): NONE SODA CLERK/Reproductive: NONE Surgical History Surgical History: cholecystectomy (lap 1999; ? SOD/ES), 05/01/17: gastric bypass Family History Relations & Conditions If Any: Relation not specified for: Unobtainable family history due to adoption Psychosocial History Where Do You Live? Home Who Do You Live With? spouse, child (1 of her kids (dtr)) Services at Home: None Primary Language: Thai Smoking Status: Never Smoked ETOH Use: denies use Illicit Drug Use: denies illicit drug use (on rx narcotics) Living Will? no Power of Fresh Foods Technician/HCP? no Other Social History: to [employer]. Lives with & dtr. No cigarettes, EtOH, or street drugs. On rx narcs for "chronic back pain". 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 3 children (2 sons/1 dtr). One of her sons not seen x years, since age 12. One son-out of house. One dtr- at home. Functional Ability ADLs Independent: dressing, eating, toileting, bathing. Ambulation: independent IADLs Independent: shopping, housework, finances, food prep, telephone, transportation , medication admin. Employment History Employment: Unemployed Review of Systems Review of Systems: Full 14 point ROS otherwise noncontributory & as above. Denies: chills, diaphoresis, fever, malaise, weakness, unexplained weight loss. EENTM: Denies: blurred vision, double vision, visual changes, eye pain, eye drainage, eye tearing, icterus, ear discharge, ear pain, ear redness, hearing changes, nasal congestion, epistaxis, nasal pain, throat pain, throat swelling, mouth pain, tooth pain. Cardiovascular: Denies: chest pain, edema, orthopena, palpitations, peripheral edema, syncope. Respiratory: Denies: cough, hemoptysis, orthopnea, short of breath, sputum production, stridor, wheezing. GI: Reports: abdominal pain, nausea. Denies: bloating, constipation, diarrhea, distention, bowel incontinence, melena , bloody stool, changes in stool, vomiting, steatorrhea. Genitourinary: Denies: discharge, dysuria, frequency, hematuria, hesitation, nocturia, pain, urgency. Musculoskeletal: Reports: back pain (chronic). Denies: gout, joint pain, joint swelling, muscle pain, muscle stiffness, neck pain. Skin: Denies: cysts, change in skin color, change in hair/nails, dryness, erythema, jaundice, lesions, lymphangitis, lumps, moles, rash. Neurological/Psychological: Reports: anxiety, depressed, emotional problems. Denies: ataxia, cognitive dysfunction, confusion, dementia, headache, numbness, paresthesia, pre-existing deficit, petit mal seizures, tingling, tremors, tonic- clonic seizures, unable to move lower ext, unable to move upper ext, weakness. Hematologic/Endocrine: Denies: bruising, bleeding, polyuria, polydipsia. Immunologic/Allergic: Denies: splenectomy, HIV/AIDS, lymphadenopathy. All Other Systems: Reviewed and Negative Exam & Diagnostic Data Vital Signs and I&O Vital Signs Date Time Temp Pulse Resp B/P B/P Pulse O2 O2 Flow FiO2 Mean Ox Delivery Rate 07/10 0757 98.6 87 18 119/68 98 Room Air 07/10 0122 98.6 75 18 132/86 96 Room Air Intake & Output 07/10 1600 07/10 0400 07/09 1600 07/09 0400 07/08 1600 07/08 0400 Intake Total Output Total Balance Patient 200 lb 200 lb Weight Physical Exam: Well-developed, well-nourished, obese, somewhat anxious female, in no apparent distress. Non-toxic appearing. Resting comfortably. Sclera anicteric. Conjunctiva pink. Oropharynx clear. No oral thrush. No aphthous ulcers. There is no adenopathy, thyromegaly, or JVD. No peripheral stigmata of inflammatory bowel disease or chronic liver disease on exam. No spiders on the anterior chest wall. No CVA tenderness. No definite spine tenderness. Breast & pelvic exams: API. Lungs: clear to A&P. No wheezing, rales, or rhonchi. Heart exam: regular rate rhythm, S1 and S2, without any murmur. Abdominal exam: normal bowel sounds , soft obese belly, subjective epigastric tenderness, without guarding or rebound. No mass. No organomegaly. No fluid shift. No pulsatile mass. Multiple well-healed port sites. Digital rectal exam: deferred per patient (done by Dr. Keane, of [facility], in early 05/2017). Extremities: without C, C, or E. No palpable cords. No rash. Mild DJD. No acute arthropathy. No palmar erythema. No Dupuytren's contractures. Distal pulses 2+ bilaterally. DTRs 2+ bilaterally. Alert and oriented x 3. No tremor. No asterixis. Motor 5/5 B/L. Results Pertinent Lab Results: Laboratory Tests 07/10 07/10 0410 0358 Chemistry Sodium (137 - 145 mmol/L) 143 Potassium (3.5 - 5.1 mmol/L) 3.9 Chloride (98 - 107 mmol/L) 103 Carbon Dioxide (22 - 30 mmol/L) 24 Anion Gap (5 - 16) 16 BUN (7 - 17 mg/dL) 11 Creatinine (0.5 - 1.0 mg/dL) 0.5 Estimated GFR (>60 ml/min) > 60 BUN/Creatinine Ratio (7 - 25 %) 22.0 Glucose (65 - 99 mg/dL) 139 H Calcium (8.4 - 10.2 mg/dL) 9.7 Total Bilirubin (0.2 - 1.3 mg/dL) 0.4 Direct Bilirubin (< 0.4 mg/dL) 0.3 AST (14 - 36 U/L) 43 H ALT (9 - 52 U/L) 49 Alkaline Phosphatase (<127 U/L) 309 H Troponin I (< 0.11 ng/ml) < 0.01 Total Protein (6.3 - 8.2 g/dL) 7.9 Albumin (3.5 - 5.0 g/dL) 4.4 Amylase (30 - 110 U/L) 52 Lipase (23 - 300 U/L) 82 Coagulation PT (9.4 - 12.5 SEC) 10.7 INR (0.90 - 1.19) 1.02 APTT (25 - 37 SEC) 29 Hematology CBC w Diff NO MAN DIFF REQ WBC (4.8 - 10.8 /CUMM) 8.2 RBC (4.20 - 5.40 /CUMM) 4.90 Hgb (12.0 - 16.0 G/DL) 13.1 Hct (37 - 47 %) 40.6 MCV (81.0 - 99.0 FL) 82.8 MCH (27.0 - 31.0 PG) 26.8 L RDW (11.5 - 14.5 %) 15.4 H Plt Count (130 - 400 /CUMM) 340 MPV (7.4 - 10.4 FL) 8.2 Gran % (42.2 - 75.2 %) 53.2 Lymphocytes % (20.5 - 51.1 %) 36.0 Monocytes % (1.7 - 9.3 %) 8.6 Eosinophils % (0 - 5 %) 1.8 Basophils % (0.0 - 2.0 %) 0.4 Absolute Granulocytes (1.4 - 6.5 /CUMM) 4.4 Absolute Lymphocytes (1.2 - 3.4 /CUMM) 2.9 Absolute Monocytes (0.10 - 0.60 /CUMM) 0.7 H Absolute Eosinophils (0.0 - 0.7 /CUMM) 0.1 Absolute Basophils (0.0 - 0.2 /CUMM) 0 PUBS MCHC (33.0 - 37.0 G/DL) 32.3 L Imaging/Other Studies: 06/15/17: CT AP WITH IV CONTRAST- The patient is status post gastric bypass surgery. There is a 4.1 cm TV by 2.6 cm AP focal fluid collection located immediately beneath the gastroenteric anastomosis on image 27 of series 2. This collection is nonspecific and could reflect a postoperative seroma or resolving hematoma. An infected collection is felt to be less likely given the lack of inflammatory changes around this area. There is no contrast leakage. There is no bowel obstruction. Normal liver & spleen. Post CCKY. No mention of any dilated ducts. No ascites. Partial fatty atrophy of pancreas. 06/19/17: EGD with bxs to [facility]-Y limb, per Dr. Misa Simon (done for eppigastric pain & nausea)- GEJ at 40 cm with intermittent patent ring, 3 columns of blue venous structures in the distal esophagus, not clearly varices, large gastric pouch, 1 cm marginal ulcer with clean base at the GJ anastomosis. No stricture or fistula. Biopsies of gastric pouch- mild chronic fundic gastritis, H. pylori negative, no acute activity, no intestinal metaplasia. *PPI BID and Carafate suspension 1 g, 4 times a day before meals and at bedtime were rxd. 07/05/17: CT ABDOMEN AND PELVIS WITH IV/PO CONTRAST- There are surgical changes status post gastric bypass. The previously identified fluid collection located immediately beneath the gastroenteric anastomosis is stable in size, measuring 3.5 x 2.6 cm. As stated previously this collection is nonspecific. It could represent a postoperative seroma. Normal liver. No focal hepatic defects. No dilated bile ducts. Post CCKY. Incidental 3.1 x 2.7 left ovarian cyst. 07/10/17: EKG- NSR @ 77, nl axis, nl intervals, without acute abnormalities. Assessment/Plan Assessment/Recommendations: 47 y/o female, followed as an outpatient by Dr. Ahn for primary care, previously by Dr. Garcia in [place], [place], for GI & now identifies herself as Dr. Misa Simon's GI patient (previously by Dr. Kishore Golden in [place], [place]), Dr. Bealsey for pain management (chronic back pain/DJD/HD), Dr. Keane for CRS, & Dr. Burnett for bariatrics (*now claims she is seeking another bariatric surgeon), post lap GJ bypass 05/01/17 for BMI 38, JJ, DM, GERD. 05/02/17: Postop UGI series- unremarkable, without leak or obstruction. She has a convoluted history. Additionally, she has a chronically elevated alk phos, reportedly followed by Dr. Garcia. She is post-lap CCKY [address] Rogers at . She has never had a liver biopsy. 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 Jackson at [facility]. Apparently she had biliary manometry approximately 2011 at [facility] & a papillotomy at some point.*According to the CAD [facility], the patient's alk phos has been in the mid-100 range since 10/2016, but increased to the mid-300 range in 05/2017. She denied any new medications or herbal meds re: LFTs. She denied any jaundice, dark urine, light stools, or confusion. She denied any history of hepatitis, needlesticks, body piercings (aside from earrings), or tattoos. She claimed she had a "normal colonoscopy with normal random bxs" by Dr. Kishore Golden in [place] in 2015 for evaluation of diarrhea then (since resolved off Metformin), but that "he should have known it was from her Metformin" & so she then switched to Dr. Garcia for GI. She sees CRS for a "thrombosed hemorrhoid". Family history is unknown regarding any GI Ca, GI disease, or inherited liver disease, as the patient is adopted. 06/15/17: CT AP WITH IV CONTRAST- The patient is status post gastric bypass surgery. There is a 4.1 cm TV by 2.6 cm AP focal fluid collection located immediately beneath the gastroenteric anastomosis on image 27 of series 2. This collection is nonspecific and could reflect a postoperative seroma or resolving hematoma. An infected collection is felt to be less likely given the lack of inflammatory changes around this area. There is no contrast leakage. There is no bowel obstruction. Normal liver & spleen. Post CCKY. No mention of any dilated ducts. No ascites. Partial fatty atrophy of pancreas. The patient claimed she has had chronic, dull, epigastric pain "14/01", across the upper abdomen, without radiation to the back, since the GJ bypass surgery, although she does see pain management for chronic back pain. She has numerous alleged allergies and/or medication-related side effects (at least 15 listed meds). She is 5'6". She stated her maximum weight was 287 lbs at the time of IVF in 2009. She got down to 226 lbs pre-bariatric surgery, & claimed she had lost 24 lbs since her bariatric surgery, "now weighing 202 lbs". In addition to the Zofran ODT, she reportedly was also on Dexilant 60 mg daily & Oxycodone ( Percocet). She claimed she is intolerant of Protonix, which caused "shakes". She denied any ASA, NSAIDS, cigarettes, EtOH, or street drugs (although she is on rx narcotics). She claimed she had [address] Garcia pre-bariatric surgery, & was told of "an ulcer that healed" (txd with Dexilant), & was "H. pylori- negative". She has a history of anxiety, depression, & anemia (w/o transfx). 06/18/17: WBC 7.6, H/H 12.3/38.6, MCV 82.8, RDW 15.6, PLT 447, glucose 111, BUN/ Cr 6/0.4, GFR > 60, Na 142, K 4.2, HCO3 23, AG 13, lactate 1.3, normal lipase 102, Ca 9.7, albumin 4.3, globulin 3.7, TBil 0.3, alk phos 348, AST 40, ALT 63, serum HCG- negative. (No U/A). *Differential diagnoses at the time of my 06/19/17: GI consult for the patient's epigastric symptoms post 05/01/17: lap GJ bypass, included marginal ulcer, rule out recurrent PUD, possible internal hernia, doubt fistula, etc. There was a small seroma vs. hematoma on the 06/15/17: CT AP with IV contrast, which was probably unrelated. Rule out malingering and/or drug seeking. The somewhat chronically elevated alk phos with mild transaminitis was noted. Rule out fatty liver- multiple risk factors for this, including obesity, DM, etc., (although none seen on CT). 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 Jackson in 2011, post 1999: lap CCKY. This may or may not be related to her symptoms of chronic pain. Her lipase was normal. Her chroic opioid use could be exacerbating the "SOD". *In the midst of this GI consultation, I found out that the patient wanted my partner, Dr. Misa Simon, to perform her EGD & assume her GI care while at [place] & she subsequently had called the office after her discharge. A liver workup was planned for her chronically elevated alkaline phosphatase, apparently , an outpt MRCP was ordered by the office. 06/19/17: EGD with bxs to [facility]-en-Y limb, per Dr. Misa Simon (done for eppigastric pain & nausea)- GEJ at 40 cm with intermittent patent ring, 3 columns of blue venous structures in the distal esophagus, not clearly varices, large gastric pouch, 1 cm marginal ulcer with clean base at the GJ anastomosis. No stricture or fistula. Biopsies of gastric pouch- mild chronic fundic gastritis, H. pylori negative, no acute activity, no intestinal metaplasia. *PPI BID and Carafate suspension 1 g, 4 times a day before meals and at bedtime were rxd. The patient was readmitted to [place] 07/05/17 to 07/07/17, with persistent pain. The patient denied narcotic addiction, but previous bariatric notes stated the patient was narcotic dependent. She was seen by Dr. Fuentes in GI consultation 07/06/17 and was discharged 07/07/17. 07/05/17: CT ABDOMEN AND PELVIS WITH IV/PO CONTRAST- There are surgical changes status post gastric bypass. The previously identified fluid collection located immediately beneath the gastroenteric anastomosis is stable in size, measuring 3.5 x 2.6 cm. As stated previously this collection is nonspecific. It could represent a postoperative seroma. Normal liver. No focal hepatic defects. No dilated bile ducts. Post CCKY. Incidental 3.1 x 2.7 left ovarian cyst. The patient returned to the [place] ER 07/09/17 5 11:44 PM, again complaining of epigastric pain, described as sharp, constant, stabbing, "10 out of 10" and localized nature, *despite medical tx with PPI BID, Zofran ODT, Carafate, & Oxycodone. She had nausea. She claimed she had 1 episode of vomiting scant amount of blood-streaked vomitus 1 day BUNG DROPPER. There was no positional component. She denied any fevers, chills, jaundice, or dark urine. She claimed her stools were dark 1 week BUNG DROPPER, but were now light brown in color. Her symptoms were worse postprandially. She denied any GERD, odynophagia, or dysphagia. She had chronic early satiety as expected, postoperatively. Her bowel movements were stable. She had 1 episode of diarrhea 1 day BUNG DROPPER, otherwise there was no constipation, obstipation, tenesmus, or rectal bleeding. She denied any unintentional weight loss. PO intake was fair. She had no symptoms of UTI or URI. She had no SODA CLERK symptoms. There was no gross hematuria or vaginal spotting. Upon arrival to the [place] ER, BP 132/86, P 75, R 18, T 98.6, O2 sat RA 96%. She was hemodynamically stable. She was given IV Protonix, Zofran, & IV NS. She was requesting pain medications, & specifically asked for Dilaudid. She was essentially admitted for pain control and a very soft "UGI bleed". She refused a digital rectal exam. 07/10/17: Admission labs- WBC 8.2, H/H 13.1/40.6, MCV 82.8, RDW 15.4, PLT 340, PT 10.7, INR 1.02, PTT 29, glucose 139, BUN/Cr 11/0.5, GFR > 60, Na 143, K 3.9, HCO3 24, AG 16, nl amylase 52, nl lipase 82, Ca 9.7, albumin 4.4, globulin 3.5, TBil 0.4, DBil 0.3, chronic alk phos 309, AST 43, ALT 49, troponin < 0.01. [No Utox or U/A was obtained on admission]. *The patient's abdominal pain is subjective in nature. She had no witnessed overt GI bleeding since coming back to the [place] ER. There was a documented 1 cm clean-based marginal ulcer on last EGD of 06/19/17, per Dr. Genaro Simon. gastric biopsies were H. pylori negative. The patient is hemodynamically stable. her H/H are exceptionally stable. Unless the patient were actively bleeding, it is too soon to re-endoscope the patient, as the marginal ulcer had not yet had adequate time to heal with medical therapy. *Numerous imaging studies have not revealed any internal hernias or fistulas. The postop seroma > hematoma was stable on several CTs. Rule out malingering and/or drug-seeking *SUGGEST- IV Protonix 40 mg BID. Clears po and advanced bariatric diet as tolerated. Bariatric supplements (i.e.- thiamine, folate, iron, B12, folate, calcium, vitamin D, etc.). IV Zofran. Carafate slurry 1g with 8 oz H2O po 4x/day (before meals & at bedtime). Judicious use of narcotic analgesics, as per medical team. *Advise bariatric consultation (the patient requests to see either Dennis Hall or Dr. Jameson Cox). Would only perform EGD at present if the patient were actively exsanguinating. Otherwise, the patient should have a repeat EGD 6-8 weeks after the 06/19/17: EGD, to document healing of the marginal ulcer. If this persists, will defer to bariatric surgery regarding possible surgical revision. No NSAIDs. The case was discussed with Dr. Genaro Simon. *If needed, further inpatient GI follow-up will be assumed by him. Otherwise, the patient can see him as an outpatient. *Additionally, advise outpt follow-up with her usual GI MD, whom she now identifies as Dr. Misa Simon, regarding the chronically elevated LFTs (consider checking 5'NTD, full Hep A, B & C serologies , JESSICA, anti-smooth muscle Ab, anti-LKM Ab [r/o AIH], AMA [r/o PBC], Fe, TIBC, ferrtitin [r/o HHC], Tylenol level [on chronic Percocet], possible eventual liver bx, etc- defer to [facility] for ? EUS/repeat biliary manometry, *outpt MRCP, etc). Advise semielective SODA CLERK follow-up for left ovarian cyst. The above was discussed with the patient in detail. Problem List: 1. Upper abdominal pain, unspecified 2. Acute marginal ulcer 3. Gastric bypass status for obesity 4. Nausea 5. Elevated LFTs 6. Sphincter of Oddi dysfunction 7. Morbid obesity 8. Opioid dependence Copies To: Yessy ASTUDILLO,Mary Ann; Tristian Burnett DO; Lakhwinder ASTUDILLO,Sunil A.; Manuel ASTUDILLO,Yanique David; Aurora ASTUDILLO,Tono Purcell; Jimy ASTUDILLO,Dilcia; Iza ASTUDILLO,Byron Wang.; Jose ASTUDILLO, Raul Isidro. Consult Acknowledgment - Thank you for your consult request.
[2017-07-10 07:57] VITALS: BP 119/68
--- NOTE | 2017-07-10 09:44 | Patient Discharge Instructions ---
Discharge Instructions General Discharge Information You were seen/treated for: #Upper GI bleed #Elevated alkaline phosphatase #DM Special Instructions: 1- please follow up with your Gi doctor in 1 week of dischargr\e 2- please follow up with [employer] for left ovarian cyst 3-please follow up with bariatric surgeon iin 1 week of discharge Diet Continue normal diet: Yes Activity Full Activity/No Limits: Yes Acute Coronary Syndrome Inclusion Criteria At DC or during hospital stay patient has or had the following: ACS DIAGNOSIS No Discharge Core Measures Meds if any: Prescribed or Continued at Discharge Meds if any: NOT Prescribed or Continued at Discharge Congestive Heart Failure Inclusion Criteria At DC or during hospital stay patient has or had the following: CHF DIAGNOSIS No Discharge Core Measures Meds if any: Prescribed or Continued at Discharge Meds if any: NOT Prescribed or Continued at Discharge Cerebrovascular accident Inclusion Criteria At DC or during hospital stay patient has or had the following: CVA/TIA Diagnosis No Discharge Core Measures Meds if any: Prescribed or Continued at Discharge Meds if any: NOT Prescribed or Continued at Discharge Venous thromboembolism Inclusion Criteria VTE Diagnosis No VTE Type NONE VTE Confirmed by (Test) NONE Discharge Core Measures - Per Current guidelines, there needs to be overlap - treatment for the first 5 days of Warfarin therapy. - If discharged on Warfarin prior to 5 days of - overlap therapy, the patient will need to be - assessed for post discharge needs including - *Post discharge parental anticoagulation - *Warfarin and/or parental anticoagulation education - *Follow up date to check INR post discharge At least 5 days overlap therapy as Inpatient No Meds if any: Prescribed or Continued at Discharge Note: Overlap Therapy is Warfarin and Anticoagulant Meds if any: NOT Prescribed or Continued at Discharge
[2017-07-10 10:32] LABS: ABSOLUTE BASOPHIL COUNT 0 /CUMM (0.0-0.2); ABSOLUTE EOSINOPHIL COUNT 0.1 /CUMM (0.0-0.7); ABSOLUTE GRANULOCYTE CT 3.9 /CUMM (1.4-6.5); ABSOLUTE LYMPH COUNT 2.8 /CUMM (1.2-3.4); ABSOLUTE MONOCYTE COUNT 0.7 /CUMM (0.10-0.60); BASOPHIL % 0.6 % (0.0-2.0); EOSINOPHIL % 1.7 % (0-5); GRANULOCYTE % 51.5 % (42.2-75.2); MEAN CORPUSCULAR HGB 26.8 PG (27.0-31.0); MEAN CORPUSCULAR HGB CONC 32.2 G/DL (33.0-37.0); MEAN CORPUSCULAR VOLUME 83.4 FL (81.0-99.0); MEAN PLATELET VOLUME 8.3 FL (7.4-10.4); PLATELET COUNT 265 /CUMM (130-400); RBC DISTRIBUTION WIDTH 15.6 % (11.5-14.5); RED BLOOD CELL CT 4.05 /CUMM (4.20-5.40); WHITE BLOOD CELL COUNT 7.5 /CUMM (4.8-10.8)
[2017-07-10 10:43] LABS: HEMATOCRIT 33.7 % (37-47)
--- NOTE | 2017-07-10 12:33 | PN- Att Addend ---
Attending Addendum Attending Brief Note 47F PMH chronic lower back pain, HTN, gastric bypass April 2017 complicated by clean based 1cm gastric anastomotic ulcer on EGD in late May 2017, placed on PPI. Since then has had persistent epigastric pain, worse when eating , with globus sensation in her lower esophagus with solids. Was recently discharged after short stay here and had continued pain and hematemesis at home. No melena, Hgb stable. AFVSS NAD NCAT Supple RRR CTAB Soft, tender epigastric, no rebound or guarding No c/c/e Pulses intact A&Ox3 no focal deficits Current Medications Sig/Jimy Start time Last Medication Dose Route Stop Time Status Admin Acetaminophen 650 MG Q6P PRN 07/10 0530 AC PO Acetaminophen 1,000 MG Q6P PRN 07/10 0530 AC IV Calcium/Vitamin D 500 MG DAILY 07/10 1000 AC PO Cyanocobalamin 1,000 MCG DAILY 07/10 1000 AC PO Famotidine 20 MG BID 07/10 1000 CAN IV Ferrous Sulfate 325 MG DAILY 07/10 1000 AC PO Folic Acid 1 MG DAILY 07/10 1000 AC PO Heparin Sodium 0 .STK-MED ONE 07/10 1001 DC (Porcine) .ROUTE Heparin Sodium 5,000 UNIT Q8 07/10 0823 AC (Porcine) SC Hydromorphone HCl 1 MG Q4P PRN 07/10 1600 AC IV Hydromorphone HCl 0 .STK-MED ONE 07/10 1140 DC .ROUTE Hydromorphone HCl 0.4 MG ONCE ONE 07/10 1130 DC 07/10 IV 07/10 1131 1143 Hydromorphone HCl 0 .STK-MED ONE 07/10 0821 DC .ROUTE Hydromorphone HCl 2 MG Q8P PRN 07/10 0645 DC 07/10 IV 0825 Hydromorphone HCl 0 .STK-MED ONE 07/10 0519 DC .ROUTE Hydromorphone HCl 1 MG ONCE ONE 07/10 0515 DC 07/10 IV 07/10 0516 0524 Morphine Sulfate 0 .STK-MED ONE 07/10 0641 DC .ROUTE Morphine Sulfate 2 MG Q4P PRN 07/10 0615 DC 07/10 IV 0640 Ondansetron HCl 0 .STK-MED ONE 07/10 1036 DC .ROUTE Ondansetron HCl 4 MG Q6P PRN 07/10 0530 AC 07/10 IV 1035 Ondansetron HCl 0 .STK-MED ONE 07/10 0339 DC .ROUTE Ondansetron HCl 4 MG ONCE ONE 07/10 0145 DC 07/10 IV 07/10 0146 0427 Oxycodone HCl 5 MG Q6P PRN 07/10 1145 DC PO Oxycodone/ 1 TAB Q4P PRN 07/10 1230 UNVr Acetaminophen PO Oxycodone/ 1 TAB Q4P PRN 07/10 1145 CAN Acetaminophen PO Pantoprazole Sodium 40 MG BID 07/10 2200 AC IV Pantoprazole Sodium 40 MG BID 07/10 1000 CAN IV Pantoprazole Sodium 0 .STK-MED ONE 07/10 0343 DC IV Pantoprazole Sodium 80 MG ONCE ONE 07/10 0145 DC 07/10 Dextrose/Water 100 ML IV 07/10 1144 0427 Sodium Chloride 1,000 ML Q10H 07/10 0800 AC 07/10 IV 0825 Sodium Chloride 1,000 ML BOLUS ONE 07/10 0415 DC 07/10 IV 07/10 0514 0427 Sucralfate 1,000 MG 4 TIMES/DAY 07/10 1000 AC PO Thiamine HCl 100 MG DAILY 07/10 1000 AC PO Laboratory Tests 07/10 07/10 1022 0410 Chemistry Sodium (137 - 145 mmol/L) 141 Potassium (3.5 - 5.1 mmol/L) 4.0 Chloride (98 - 107 mmol/L) 106 Carbon Dioxide (22 - 30 mmol/L) 24 Anion Gap (5 - 16) 11 BUN (7 - 17 mg/dL) 9 Creatinine (0.5 - 1.0 mg/dL) 0.5 Estimated GFR (>60 ml/min) > 60 BUN/Creatinine Ratio (7 - 25 %) 18.0 Coagulation PT (9.4 - 12.5 SEC) 10.7 INR (0.90 - 1.19) 1.02 APTT (25 - 37 SEC) 29 Hematology CBC w Diff NO MAN DIFF REQ NO MAN DIFF REQ WBC (4.8 - 10.8 /CUMM) 7.5 8.2 RBC (4.20 - 5.40 /CUMM) 4.05 L 4.90 Hgb (12.0 - 16.0 G/DL) 10.9 L 13.1 Hct (37 - 47 %) 33.7 L 40.6 MCV (81.0 - 99.0 FL) 83.4 82.8 MCH (27.0 - 31.0 PG) 26.8 L 26.8 L RDW (11.5 - 14.5 %) 15.6 H 15.4 H Plt Count (130 - 400 /CUMM) 265 340 MPV (7.4 - 10.4 FL) 8.3 8.2 Gran % (42.2 - 75.2 %) 51.5 53.2 Lymphocytes % (20.5 - 51.1 %) 37.0 36.0 Monocytes % (1.7 - 9.3 %) 9.2 8.6 Eosinophils % (0 - 5 %) 1.7 1.8 Basophils % (0.0 - 2.0 %) 0.6 0.4 Absolute Granulocytes (1.4 - 6.5 /CUMM) 3.9 4.4 Absolute Lymphocytes (1.2 - 3.4 /CUMM) 2.8 2.9 Absolute Monocytes (0.10 - 0.60 /CUMM) 0.7 H 0.7 H Absolute Eosinophils (0.0 - 0.7 /CUMM) 0.1 0.1 Absolute Basophils (0.0 - 0.2 /CUMM) 0 0 PUBS MCHC (33.0 - 37.0 G/DL) 32.2 L 32.3 L 07/10 0358 Chemistry Sodium (137 - 145 mmol/L) 143 Potassium (3.5 - 5.1 mmol/L) 3.9 Chloride (98 - 107 mmol/L) 103 Carbon Dioxide (22 - 30 mmol/L) 24 Anion Gap (5 - 16) 16 BUN (7 - 17 mg/dL) 11 Creatinine (0.5 - 1.0 mg/dL) 0.5 Estimated GFR (>60 ml/min) > 60 BUN/Creatinine Ratio (7 - 25 %) 22.0 Glucose (65 - 99 mg/dL) 139 H Calcium (8.4 - 10.2 mg/dL) 9.7 Total Bilirubin (0.2 - 1.3 mg/dL) 0.4 Direct Bilirubin (< 0.4 mg/dL) 0.3 AST (14 - 36 U/L) 43 H ALT (9 - 52 U/L) 49 Alkaline Phosphatase (<127 U/L) 309 H Troponin I (< 0.11 ng/ml) < 0.01 Total Protein (6.3 - 8.2 g/dL) 7.9 Albumin (3.5 - 5.0 g/dL) 4.4 Amylase (30 - 110 U/L) 52 Lipase (23 - 300 U/L) 82 Vital Signs Date Time Temp Pulse Resp B/P B/P Pulse O2 O2 Flow FiO2 Mean Ox Delivery Rate 07/10 0757 98.6 87 18 119/68 98 Room Air 07/10 0122 98.6 75 18 132/86 96 Room Air Intake & Output 07/10 1600 07/10 0800 07/10 0000 Intake Total Output Total Balance Patient 90.718 kg Weight 1. Intractable epigastric pain 2. Esophageal odynophagia 3. History of Maria Antonia-en-Y gastric bypass 4. History of gastric ulcer Plan - Continue on general medicine - GI consult - Bariatric surgery consult (patient refusing Susie, but will speak with patient about this) - Protonix 40mg BID - Continue home pain regimen - Continue home medications
[2017-07-10 15:55] VITALS: BP 118/69
[2017-07-10] MEDS ORDERED: OXYCODONE HCL10 M2 PO (17:35)
[2017-07-10] MEDS ORDERED: MULTI-VITAMIN1 EACH PO (17:37)
[2017-07-10] MEDS ORDERED: DEXILANT60 M1 PO (17:38)
[2017-07-10] MEDS ORDERED: ACETAMINOPHEN500 M4 PO (17:39)
[2017-07-10 23:36] VITALS: BP 126/80
--- NOTE | 2017-07-11 07:14 | PN-Observation ---
See Addendum Observation Note Observation Note _ I have personally examined KASHMIR MARTÍNEZ. her disposition is uncertain at this time. Before a determination can be made, she requires continued observation for the following reasons []. Assessment/Plan Assessment: 47 years old woman with past medical history of diabetes mellitus, gastric bypass surgery in 2017, chronic back pain, who presented to [place] ED for evaluation of epigastric pain and bloody streaked vomiting. Patient had recent gastric bypass surgery by Dr. Richards and since then she has been experiencing epigastric discomfort. She was seen by Dr. Simon in May, endoscopy was done which revealed a mild gastric ulcer (Marginal ulcer, in the area of protruding carlos)Biopsies showed chronic mild gastric ulcer, negative for metaplasia and Helicobacter pylori, patient was discharged last week and from [facility] for the same complaints of abdominal pain #upper GI. bleed She is status post Maria Antonia-en-Y gastric bypass. H&H are dropping, close monitoring of her CBC Continue IV Protonix Gentle IV hydration Continue sucralfate Zofran for nausea Pain control with Dilaudid, oxycodone, Percocet Follow-up in GI recommendation Follow-up on bariatric surgery recommendations Close monitoring of vital signs Maintained 2 wide IV pore cannula Nothing by mouth at midnight for EGD tomorrow #Elevated alkaline phosphatase Tonically evaluated. Patient was supposed to go for MRCP yesterday morning which she skipped because she was feeling dehydrated and did not think that she will be able to drive. -Reschedule MRCP inpt vs outpt #DM Accu-Cheks insulin sliding scale patient is currently not on any antidiabetic medication FC Nothing by mouth at midnight DVT prophylaxis with ALPS only Problem List: 1. Ovarian cyst 2. Gastric bypass status for obesity 3. Upper GI bleed 4. Intractable pain DVT/Prophylaxis: mechanical Subjective Follow-up For: 1. Intractable epigastric pain 2. Esophageal odynophagia 3. History of Maria Antonia-en-Y gastric bypass 4. History of gastric ulcer Subjective: PT IS SEEN AND EXAMINED AT BED SIDE, C/O OF ABD PAIN 9.5 IN SEVERITY, NAUSEA, DENIES VOMITING, CHILLIS OR DIARRHEA, NO HEMATEMSIS SINCE YESTERDAY Review of Systems Constitutional: Denies: no symptoms. Cardiovascular: Denies: no symptoms. Respiratory: Denies: no symptoms. Gastrointestinal: Reports: abdominal pain, nausea. Denies: diarrhea, melena, bloody stool. Genitourinary: Denies: no symptoms. Objective Last 24 Hrs of Vital Signs/I&O Vital Signs Date Time Temp Pulse Resp B/P B/P Pulse O2 O2 Flow FiO2 Mean Ox Delivery Rate 07/11 1401 97.4 07/11 1324 96.4 84 18 130/75 95 07/11 1318 96.4 84 16 130/75 98 Room Air 07/11 1200 98.0 76 18 139/68 95 Room Air 07/11 1150 96.0 80 22 139/68 98 Room Air 07/11 0933 97.2 74 18 137/73 96 Room Air 07/10 2342 97.7 70 18 126/80 96 Room Air 07/10 2336 97.7 70 18 126/80 96 Room Air 07/10 1555 98.6 79 18 118/69 98 Room Air Intake & Output 07/11 1600 07/11 0800 07/11 0000 Intake Total 1040 200 Output Total Balance 1040 200 Intake, IV 800 Intake, Oral 240 200 Physical Exam General Appearance: Alert, Oriented X3, Cooperative, No Acute Distress HEENT: Atraumatic, PERRLA, EOMI, Mucous Membr. moist/pink Cardiovascular: Normal S1, Normal S2, No Murmurs Lungs: Clear to Auscultation, Normal Air Movement Abdomen: Normal Bowel Sounds, Soft, MILD EPIGASTRIC TENDERNESS Neurological: Normal Speech, Strength at 5/5 X4 Ext, Normal Tone Extremities: No Clubbing, No Cyanosis, No Edema
[2017-07-11 12:00] VITALS: BP 139/68
[2017-07-11 13:24] VITALS: BP 130/75
[2017-07-11] MEDS ORDERED: VITAMIN B-121000 MC3 PO (14:30)
[2017-07-11] MEDS ORDERED: VITAMIN B-1100 MG PO (14:30)
[2017-07-11] MEDS ORDERED: FOLIC ACID1 M1 PO (14:30)
[2017-07-11 19:00] VITALS: BP 130/70
[2017-07-11 22:36] VITALS: BP 134/76
[2017-07-12 06:15] VITALS: BP 136/68
--- NOTE | 2017-07-12 06:57 | PN-Observation ---
Observation Note Observation Note _ I have personally examined KASHMIR MARTÍNEZ. her disposition is uncertain at this time. Before a determination can be made, she requires continued observation for the following reasons [abdominal pain and hematemesis]. Assessment/Plan Assessment: 47 years old woman with past medical history of diabetes mellitus, gastric bypass surgery in 2017, chronic back pain, who presented to [place] ED for evaluation of epigastric pain and bloody streaked vomiting. Patient had recent gastric bypass surgery by Dr. Richards and since then she has been experiencing epigastric discomfort. She was seen by Dr. Simon in May, endoscopy was done which revealed a mild gastric ulcer (Marginal ulcer, in the area of protruding carlos)Biopsies showed chronic mild gastric ulcer, negative for metaplasia and Helicobacter pylori, patient was discharged last week and from [facility] for the same complaints of abdominal pain #upper GI. bleed She is status post Maria Antonia-en-Y gastric bypass. H&H are stable close monitoring of her CBC Continue IV Protonix Gentle IV hydration Continue sucralfate Zofran for nausea Follow-up on EGD and MRCP Pain control with Dilaudid, oxycodone, Percocet Follow-up in GI recommendation Follow-up on bariatric surgery recommendations Close monitoring of vital signs Maintained 2 wide IV pore cannula #Elevated alkaline phosphatase Follow-up on MRCP #DM Accu-Cheks insulin sliding scale patient is currently not on any antidiabetic medication FC Nothing by mouth at midnight DVT prophylaxis with ALPS only Problem List: 1. Intractable pain 2. Upper GI bleed DVT/Prophylaxis: mechanical Subjective Follow-up For: upper abd oain Upper GI bleeding Subjective: pt is seen and examined at bedside, she continues to complain of upper abdominal pain which worsened after eating, denies fever, chills, nausea, vomiting Review of Systems Constitutional: Denies: no symptoms. Cardiovascular: Denies: no symptoms. Gastrointestinal: Reports: abdominal pain. Genitourinary: Denies: no symptoms. Objective Last 24 Hrs of Vital Signs/I&O Vital Signs Date Time Temp Pulse Resp B/P B/P Pulse O2 O2 Flow FiO2 Mean Ox Delivery Rate 07/15 1521 97.8 92 20 122/80 07/15 1432 97.8 92 20 122/80 100 Room Air Physical Exam General Appearance: Alert, Oriented X3, Cooperative, No Acute Distress HEENT: Atraumatic, PERRLA, EOMI, Mucous Membr. moist/pink Cardiovascular: Regular Rate, Normal S1, Normal S2, No Murmurs Lungs: Clear to Auscultation Abdomen: Normal Bowel Sounds, Soft, mild epigastric tenderness Neurological: Normal Speech Extremities: No Clubbing, No Cyanosis, No Edema
[2017-07-12 08:48] LABS: ABSOLUTE BASOPHIL COUNT 0.1 /CUMM (0.0-0.2); ABSOLUTE EOSINOPHIL COUNT 0.2 /CUMM (0.0-0.7); ABSOLUTE MONOCYTE COUNT 0.7 /CUMM (0.10-0.60); BASOPHIL % 0.8 % (0.0-2.0); EOSINOPHIL % 3.3 % (0-5); GRANULOCYTE % 43.2 % (42.2-75.2); HEMATOCRIT 32.2 % (37-47); MEAN CORPUSCULAR HGB 27.3 PG (27.0-31.0); MEAN CORPUSCULAR HGB CONC 32.9 G/DL (33.0-37.0); MEAN PLATELET VOLUME 8.5 FL (7.4-10.4); PLATELET COUNT 263 /CUMM (130-400); RBC DISTRIBUTION WIDTH 15.5 % (11.5-14.5); RED BLOOD CELL CT 3.87 /CUMM (4.20-5.40)
--- NOTE | 2017-07-12 15:03 | Proc Note Endoscopy ---
Endoscopy Procedure Procedure Date: 07/12/17 Procedure Type: EGD [employer]: Tono Simon M.D. ASA Classification: III Indications: Refractory abdominal pain Recently diagnosed marginal ulcer (status post Maria Antonia-en-Y gastric bypass) Instrument: diagnostic gastroscope Meds Received: FELISA Patient's Tolerance: good Complications: none Extent Reached: Maria Antonia-en-Y limb Procedure: The patient signed informed consent, and was medicated. Pulse oximetry, blood pressure and cardiac monitoring were performed continuously throughout the procedure. The Olympus high-definition gastroscope was inserted into the mouth and advanced to the Maria Antonia-en-Y limb. Careful examination was performed. Findings: The esophagus had normal caliber and contour. The mucosa was intact throughout. There were no varices. The GE junction at 40 cm was normal. The gastric pouch was normal. At the anastomosis there was some friability, but no residual ulceration. There were several protruding carlos. The mucosa and folds of the short blind efferent limb, and the long Maria Antonia-en-Y limb, were normal. Impression: * Healed marginal ulceration * Protruding anastomotic carlos Recommendations: * Continue PPI and sucralfate * Begin elixir prior to meals and at bedtime CC: Fransisco Burnett DO, MD,Dilcia
[2017-07-12 15:11] VITALS: BP 120/80
--- NOTE | 2017-07-12 17:30 | MRI REPORT ---
EXAMINATION: MR CHOLANGIOPANCREATOGRAPHY/MR ABDOMEN WITHOUT CONTRAST CLINICAL INFORMATION: A 47-year-old female with gastritis, hematemesis, and abdominal pain. COMPARISON: CT of the abdomen and pelvis done on 07/05/2017. TECHNIQUE: Multiplanar, multisequential noncontrast MR images of the abdomen/MRCP is obtained. FINDINGS: LUNG BASES: Unremarkable. LIVER: No discrete focal intrahepatic abnormality is visualized. GALLBLADDER, BILIARY TREE: The gallbladder is surgically absent. There is minimal central intrahepatic biliary ductal prominence present which will be physiologic given the patient's history of cholecystectomy. The common bile duct shows progressive smooth distal tapering, measures between 0.6 to 0.9 cm, given the postcholecystectomy status, within normal limits. PANCREAS: Unremarkable on these nonenhanced images. SPLEEN: Unremarkable. ADRENAL GLANDS AND KIDNEYS: Unremarkable. URETERS AND BLADDER: Visualized part of both proximal ureters appear unremarkable. BOWEL LOOPS: Postsurgical changes are noted within the stomach. Previous CT-detected loculated fluid collection within the surgical bed is reidentified, currently measures approximately 2.9 cm at its maximum dimension, previously measured 3.5 cm on 07/05/2017, may represent resolving postoperative seroma. LYMPHOVASCULAR STRUCTURES: No pathologically enlarged lymphadenopathy is present. Mild thoracolumbar levoscoliosis and mild multilevel degenerative spondylosis-related changes are noted at lower lumbar spine. IMPRESSION: 1. No MR evidence of biliary obstruction. Note is made of minimal central intrahepatic and minimal extrahepatic biliary ductal dilatation. Given the surgical absence of gallbladder, the findings are within normal limits. 2. A 2.9 cm maximum dimension nonspecific fluid density is identified at the surgical bed around the stomach, previously measured 3.[address] study dated 07/05/2017, may represent resolving postoperative seroma.
[2017-07-12 22:27] VITALS: BP 120/80
--- NOTE | 2017-07-12 22:35 | PN- Att Addend ---
Attending Addendum Attending Brief Note The patient was seen and discussed with house staff, family, nursing, case management and GI (Dr. Simon). Preliminary MRCP suggests no significant findings/obstruction (has h/o sphincter of Oddi dysfunction and prior sphincterotomy at [facility]). EGD done by Dr. Simon shows good healing of prior anastomotic ulcer noted in 06/09 EGD. Explanation of pain still unclear. May be spasmodic component. Agree with Dr. Simon to dry AC & qHS. I agree that Elixir form would work better for this patient, however not available at [facility] and will use tablet form beginning this evening. Will hope patient will be able to tolerate diet (full liquids with toast/crackers this evening). She states she wants pain under control prior to discharge. Declines seeing Dr. Burnett her prior bariatric surgeon. Suggest that if able to discharge from hospital tomorrow she set up appointment with Dr. Porfirio Devlin ( [facility]ariat[facility] surgeon) for another opinion. Also wrote a letter for patient to go to her maintenance painter informing him that we will prescribe some pain medication at discharge, however she wishes to continue him following her pain as an outpatient. Discussed with case management (Maira Thomas) and will maintain today under OBS status. If unable to discharge tomorrow will need to discuss conversion to full admission. May need [facility] transfer for bariatric opinion there.
[2017-07-13 06:30] VITALS: BP 110/67
[2017-07-13 08:31] LABS: ABSOLUTE BASOPHIL COUNT 0 /CUMM (0.0-0.2); ABSOLUTE EOSINOPHIL COUNT 0.2 /CUMM (0.0-0.7); ABSOLUTE GRANULOCYTE CT 3.3 /CUMM (1.4-6.5); ABSOLUTE LYMPH COUNT 2.7 /CUMM (1.2-3.4); ABSOLUTE MONOCYTE COUNT 0.6 /CUMM (0.10-0.60); BASOPHIL % 0.7 % (0.0-2.0); EOSINOPHIL % 3.1 % (0-5); GRANULOCYTE % 48.7 % (42.2-75.2); MEAN CORPUSCULAR HGB 27.1 PG (27.0-31.0); MEAN CORPUSCULAR HGB CONC 32.6 G/DL (33.0-37.0); MEAN CORPUSCULAR VOLUME 83.2 FL (81.0-99.0); MEAN PLATELET VOLUME 8.6 FL (7.4-10.4); PLATELET COUNT 267 /CUMM (130-400); RBC DISTRIBUTION WIDTH 15.3 % (11.5-14.5); RED BLOOD CELL CT 3.85 /CUMM (4.20-5.40); WHITE BLOOD CELL COUNT 6.8 /CUMM (4.8-10.8)
--- NOTE | 2017-07-13 08:54 | PN- Housestaff ---
Sophia ASTUDILLO,Estefany 07/13/17 0854: Subjective Follow-up For: Intractable abdominal pain status post gastric bypass surgery Healing anastomotic ulcer Subjective: Seen and examined at bedside Patient reportedly feels better after taking pain medications. Reports she is having 9.5/10 pain. She denies any nausea/vomiting. Reportedly had made pain medications help her, not feeling to take belladonna alkaloids. Review of Systems Constitutional: Reports: see HPI. Comments: Otherwise negative Observation Re-evaluation Note - Admitted Objective Last 24 Hrs of Vital Signs/I&O Vital Signs Date Time Temp Pulse Resp B/P B/P Pulse O2 O2 Flow FiO2 Mean Ox Delivery Rate 07/13 0630 98.4 82 20 110/67 90 07/12 2227 98.0 77 20 120/80 99 07/12 1511 98.1 62 18 120/80 96 Intake & Output 07/13 1600 07/13 0800 07/13 0000 Intake Total 1280 560 Output Total Balance 1280 560 Intake, IV 800 200 Intake, Oral 480 360 Physical Exam General Appearance: Alert, Oriented X3, Cooperative, No Acute Distress Skin: No Rashes, No Breakdown HEENT: Atraumatic, PERRLA, EOMI Neck: Supple, No JVD Cardiovascular: Normal S1, Normal S2 Lungs: Clear to Auscultation, Normal Air Movement Abdomen: Normal Bowel Sounds, Soft, No Tenderness Neurological: Normal Gait, Normal Speech, Strength at 5/5 X4 Ext Extremities: No Clubbing, No Cyanosis, No Edema Vascular: Normal Pulses, Pulses Symmetrical Current Medications: Current Medications Sig/Jimy Start time Last Medication Dose Route Stop Time Status Admin Acetaminophen 650 MG Q6P PRN 07/10 0530 AC PO Acetaminophen 1,000 MG Q6P PRN 07/10 0530 AC IV Belladonna Alkaloids/ 1 TAB AC & AT BEDTIME 07/12 2200 AC 07/13 Phenobarbital PO 08 Belladonna Alkaloids/ 1 TAB ONCE ONE 07/12 1900 DC Phenobarbital PO 07/12 1901 Calcium/Vitamin D 500 MG DAILY 07/10 1000 AC 07/13 PO 0818 Cyanocobalamin 1,000 MCG DAILY 07/10 1000 AC 07/13 PO 0818 Ferrous Sulfate 325 MG DAILY 07/10 1000 AC PO Folic Acid 1 MG DAILY 07/10 1000 AC 07/13 PO 0819 Heparin Sodium 5,000 UNIT Q8 07/10 0823 AC (Porcine) SC Hydromorphone HCl 0.4 MG ONCE ONE 07/12 1130 DC 07/12 IV 07/12 1131 1837 Hydromorphone HCl 2 MG Q4P PRN 07/10 1600 AC 07/13 IV 0820 Lidocaine 2 FRANKO .STK-MED ONE 07/12 1508 DC TOP 07/12 1509 Ondansetron HCl 2 MG ONCE ONE 07/13 0130 DC 07/13 IV 07/13 0131 0131 Ondansetron HCl 4 MG .STK-MED ONE 07/12 2242 DC IM 07/12 2243 Ondansetron HCl 4 MG Q6P PRN 07/10 0530 AC 07/13 IV 0440 Oxycodone/ 2 TAB Q4P PRN 07/10 1345 AC 07/13 Acetaminophen PO 0623 Pantoprazole Sodium 40 MG BID 07/10 2200 AC 07/13 IV 0819 Sodium Chloride 1,000 ML Q10H 07/10 0800 AC 07/13 IV 0356 Sucralfate 1,000 MG 4 TIMES/DAY 07/10 1000 AC 07/13 PO 0818 Thiamine HCl 100 MG DAILY 07/10 1000 AC 07/13 PO 0819 Last 24 Hrs of Lab/Kumar Results Last 24 Hrs of Labs/Mics: Laboratory Tests 07/13/17 0715: Anion Gap 10, Estimated GFR > 60, BUN/Creatinine Ratio 14.0, CBC w Diff NO MAN DIFF REQ, RBC 3.85 L, MCV 83.2, MCH 27.1, RDW 15.3 H, MPV 8.6, Gran % 48.7, Lymphocytes % 39.0, Monocytes % 8.5, Eosinophils % 3.1, Basophils % 0.7, Absolute Granulocytes 3.3, Absolute Lymphocytes 2.7, Absolute Monocytes 0.6, Absolute Eosinophils 0.2, Absolute Basophils 0, PUBS MCHC 32.6 L Assessment/Plan Assessment: 47 years old woman with past medical history of diabetes mellitus, gastric bypass surgery in 2017, chronic back pain, who presented to [place] ED for evaluation of epigastric pain and bloody streaked vomiting. Patient had recent gastric bypass surgery by Dr. Richards and since then she has been experiencing epigastric discomfort. She was seen by Dr. Simon in May, endoscopy was done which revealed a mild gastric ulcer (Marginal ulcer, in the area of protruding carlos)Biopsies showed chronic mild gastric ulcer, negative for metaplasia and Helicobacter pylori, patient was discharged last week and from [facility] for the same complaints of abdominal pain Intaractable epigastric pain status post Maria Antonia-en-Y gastric bypass. H&H are stable close monitoring of her CBC. Patient's requirement for pain medications is really hard with 1 mg of IV Dilaudid and 10 Percocet pills yesterday. Transitioned patient's IV Dilaudid to oral. Advised her diet. Discontinued IV fluids. Started on oral omeprazole from IV Protonix. Continue sucralfate. Zofran for nausea. As patient appears stable initial thoughts were discharge patient on current regimen. Plan was further discussed with Dr. Viera and GI, we further came to know the patient has been getting readmitted with similar presentation. 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 Although the reason behind her significant pain is unclear it needs further evaluation. Need to approach Y-axis tomorrow for contacting Dr. Devlin at [place]. #Elevated alkaline phosphatase Follow-up on MRCP #DM Accu-Cheks insulin sliding scale patient is currently not on any antidiabetic medication FC Nothing by mouth at midnight DVT prophylaxis with ALPS only Problem List: 1. Gastric bypass status for obesity 2. Ovarian cyst 3. Intractable pain 4. Upper abdominal pain, unspecified Pain Ratin Pain Location: Epigastric region Pain Goal: Pain 4 or less Pain Plan: Dilaudid, Percocet Tomorrow's Labs & Rationales: None Nikolas Ruano MD 07/13/17 1634: Attending MD Review Statement Attending Statement Attending MD Statement: examined this patient, discuss w/resident/PA/SAP BUSINESS OBJECTS CONSULTANT, agreed w/resident/PA/SAP BUSINESS OBJECTS CONSULTANT, discussed with nursing Attending Assessment/Plan: Patient is still complaining of pain this morning 9.5/10 (however appears very comfortable sitting in bed). If the patient is not eating anything by mouth the pain appears to be better however in order for the patient to eat she needs pain medications and is adamant to try eating without pain medications. Discussed discontinuing Dilaudid and continuing with Percocet alone. However patient upset and mentions that she has been doing well on this regimen and would not want to be changed. Patient was started on AC & qHS, however patient has some vague side effects of weakness feeling tired and anxiety (apparently she read all the side effects of medication) and spoke to Dr. Simon before the medication was started. And discussed discharging the patient with pain medications and asking her to follow-up as an outpatient with Dr. Devlin at [place]. However considering the patient has been re-admitted frequently in the past, will consider transferring the patient to [place] for post bariatric surgery gastropathy. She does not be want to see the bariatric surgeon in [facility]. Discussed with Dr. Simon. EGD done by Dr. Simon shows good healing of prior anastomotic ulcer noted in 06/09 EGD. Explanation of pain still unclear. May be spasmodic component. Dr. Jimenez wrote a letter for patient to go to her body painter informing him that we will prescribe some pain medication at discharge, however she wishes to continue him following her pain as an outpatient. Patient changed from observation status to full admit.
[2017-07-13 13:52] VITALS: BP 138/68
--- NOTE | 2017-07-13 17:48 | PN- Gastroenterology ---
Assessment/Plan Assessment/Recommendations: Epigastric pain status post Maria Antonia-en-Y gastric bypass. No apparent GI cause. Certainly may be degrees of narcotic tolerance, low pain threshold with upregulation of receptors, possible somatization, etc. Recommendations * Hyoscyamine 0.125 mg by mouth 4 times a day (before meals, bedtime) * The patient needs bariatric surgery reevaluation. Would consider laparoscopic exploration, etc. As discussed with the patient and medical team, this would best be served, perhaps, at [place]. Would also address significance of visible carlos at anastomotic line. Subjective Subjective: Intolerant of . Still has upper abdominal pain, worse immediately after eating. Objective Vital Signs and I&Os Vital Signs Date Time Temp Pulse Resp B/P B/P Pulse O2 O2 Flow FiO2 Mean Ox Delivery Rate 07/13 1352 97.4 74 20 138/68 97 Room Air 07/13 0630 98.4 82 20 110/67 90 07/12 2227 98.0 77 20 120/80 99 Intake & Output 07/13 1600 07/13 0400 07/12 1600 07/12 0400 07/11 1600 07/11 0400 Intake Total 2530 560 3954 979 2258 200 Output Total 750 Balance 9083 343 5069 200 2080 200 Intake, IV 0288 547 2781 1600 Intake, Oral 1130 360 100 200 480 200 Number 2 1 Bowel Movements Output, Urine 750 Physical Exam: The patient appears to be comfortable and in no distress. Abdomen with epigastric tenderness. Current Medications: Current Medications Sig/Jimy Start time Last Medication Dose Route Stop Time Status Admin Acetaminophen 650 MG Q6P PRN 07/10 0530 AC PO Acetaminophen 1,000 MG Q6P PRN 07/10 0530 AC IV Belladonna Alkaloids/ 1 TAB AC & AT BEDTIME 07/12 2200 AC 07/13 Phenobarbital PO 08 Belladonna Alkaloids/ 1 TAB ONCE ONE 07/12 1900 DC Phenobarbital PO 07/12 1901 Calcium/Vitamin D 500 MG DAILY 07/10 1000 AC 07/13 PO 0818 Cyanocobalamin 1,000 MCG DAILY 07/10 1000 AC 07/13 PO 0818 Ferrous Sulfate 325 MG DAILY 07/10 1000 AC 07/13 PO 0927 Folic Acid 1 MG DAILY 07/10 1000 AC 07/13 PO 0819 Heparin Sodium 5,000 UNIT Q8 07/10 0823 AC (Porcine) SC Hydromorphone HCl 4 MG Q4P PRN 07/13 1115 AC 07/13 PO 1235 Hydromorphone HCl 4 MG ONCE PRN 07/13 1030 DC PO Hydromorphone HCl 2 MG Q4P PRN 07/10 1600 DC 07/13 IV 0820 Ondansetron HCl 2 MG ONCE ONE 07/13 0130 DC 07/13 IV 07/13 0131 0131 Ondansetron HCl 4 MG .STK-MED ONE 07/12 2242 DC IM 07/12 2243 Ondansetron HCl 4 MG Q6P PRN 07/10 0530 AC 07/13 IV 1124 Oxycodone/ 2 TAB Q4P PRN 07/10 1345 AC 07/13 Acetaminophen PO 1450 Pantoprazole Sodium 40 MG BID 07/10 2200 AC 07/13 IV 0819 Sodium Chloride 1,000 ML Q10H 07/10 0800 DC 07/13 IV 0356 Sucralfate 1,000 MG 4 TIMES/DAY 07/10 1000 AC 07/13 PO 0927 Thiamine HCl 100 MG DAILY 07/10 1000 AC 07/13 PO 0819 Results Pertinent Lab Results: Laboratory Tests 07/13 07/12 0715 0741 Chemistry Sodium (137 - 145 mmol/L) 141 142 Potassium (3.5 - 5.1 mmol/L) 3.7 3.7 Chloride (98 - 107 mmol/L) 107 106 Carbon Dioxide (22 - 30 mmol/L) 23 24 Anion Gap (5 - 16) 10 13 BUN (7 - 17 mg/dL) 7 4 L Creatinine (0.5 - 1.0 mg/dL) 0.5 0.5 Estimated GFR (>60 ml/min) > 60 > 60 BUN/Creatinine Ratio (7 - 25 %) 14.0 8.0 Total Beta HCG (NEGATIVE) NEGATIVE Hematology CBC w Diff NO MAN DIFF REQ NO MAN DIFF REQ WBC (4.8 - 10.8 /CUMM) 6.8 7.0 RBC (4.20 - 5.40 /CUMM) 3.85 L 3.87 L Hgb (12.0 - 16.0 G/DL) 10.4 L 10.6 L Hct (37 - 47 %) 32.0 L 32.2 L MCV (81.0 - 99.0 FL) 83.2 83.0 MCH (27.0 - 31.0 PG) 27.1 27.3 RDW (11.5 - 14.5 %) 15.3 H 15.5 H Plt Count (130 - 400 /CUMM) 267 263 MPV (7.4 - 10.4 FL) 8.6 8.5 Gran % (42.2 - 75.2 %) 48.7 43.2 Lymphocytes % (20.5 - 51.1 %) 39.0 42.8 Monocytes % (1.7 - 9.3 %) 8.5 9.9 H Eosinophils % (0 - 5 %) 3.1 3.3 Basophils % (0.0 - 2.0 %) 0.7 0.8 Absolute Granulocytes (1.4 - 6.5 /CUMM) 3.3 3.0 Absolute Lymphocytes (1.2 - 3.4 /CUMM) 2.7 3.0 Absolute Monocytes (0.10 - 0.60 /CUMM) 0.6 0.7 H Absolute Eosinophils (0.0 - 0.7 /CUMM) 0.2 0.2 Absolute Basophils (0.0 - 0.2 /CUMM) 0 0.1 PUBS MCHC (33.0 - 37.0 G/DL) 32.6 L 32.9 L
[2017-07-13 22:17] VITALS: BP 112/60
--- NOTE | 2017-07-14 06:03 | PN- Housestaff ---
Subjective Follow-up For: Intractable abdominal pain status post gastric bypass surgery Healing anastomotic ulcer Subjective: Patient is seen and examined at bedside, continues to report abdominal pain of 8 /10 in severity which worsened after eating, reluctant to take the hyoscyamine Review of Systems Constitutional: Denies: no symptoms. Cardiovascular: Denies: no symptoms. Respiratory: Denies: no symptoms. Gastrointestinal: Reports: abdominal pain. Genitourinary: Denies: no symptoms. Musculoskeletal: Denies: no symptoms. Objective Last 24 Hrs of Vital Signs/I&O Vital Signs Date Time Temp Pulse Resp B/P B/P Pulse O2 O2 Flow FiO2 Mean Ox Delivery Rate 07/14 0725 97.9 72 20 122/70 97 Room Air 07/13 2217 98.2 67 18 112/60 97 Room Air 07/13 1352 97.4 74 20 138/68 97 Room Air Intake & Output 07/14 1600 07/14 0800 07/14 0000 Intake Total 360 960 Output Total Balance 360 960 Intake, Oral 360 960 Number 2 Bowel Movements Patient 200 lb Weight Weight Reported by Patient Measurement Method Physical Exam General Appearance: Alert, Oriented X3, Cooperative, No Acute Distress HEENT: Atraumatic, PERRLA, EOMI, Mucous Membr. moist/pink Cardiovascular: Normal S1, Normal S2, No Murmurs Lungs: Clear to Auscultation Abdomen: Normal Bowel Sounds, Soft, No Tenderness Neurological: Normal Speech, Strength at 5/5 X4 Ext, Normal Tone Extremities: No Clubbing, No Cyanosis, No Edema Vascular: Normal Pulses Assessment/Plan Assessment: 47 years old woman with past medical history of diabetes mellitus, gastric bypass surgery in 2017, chronic back pain, who presented to [place] ED for evaluation of epigastric pain and bloody streaked vomiting. Patient had recent gastric bypass surgery by Dr. Richards and since then she has been experiencing epigastric discomfort. She was seen by Dr. Simon in May, endoscopy was done which revealed a mild gastric ulcer (Marginal ulcer, in the area of protruding carlos)Biopsies showed chronic mild gastric ulcer, negative for metaplasia and Helicobacter pylori, patient was discharged last week and from [facility] for the same complaints of abdominal pain Intaractable epigastric pain status post Maria Antonia-en-Y gastric bypass. H&H are stable close monitoring of her CBC. Patient's requires is that her pain meds be adjusted patient with IV Dilaudid she needs an increasing dose. Transitioned patient's IV Dilaudid to oral. Patient was advanced to regular diet her yesterday however this morning she requested to be -switched back to clear liquid diet because she cannot tolerate her diet without pain Discontinued IV fluids. Started on oral omeprazole from IV Protonix. Continue sucralfate. Zofran for nausea. Patient did need to be transferred to [place] as per Dr. Simon recommendation to follow up with bariatric surgeon for prominent carlos and unexplained abdominal pain since her EGD was negative for any ulcers Need to approach Y-axis tomorrow for contacting Dr. Devlin at [place]. #Elevated alkaline phosphatase Follow-up on MRCP #DM Accu-Cheks insulin sliding scale patient is currently not on any antidiabetic medication FC Nothing by mouth at midnight DVT prophylaxis with ALPS only Problem List: 1. Upper GI bleed 2. Ovarian cyst 3. Intractable pain Pain Ratin Pain Location: abdomen Pain Goal: Pain 4 or less Pain Plan: pathway Tomorrow's Labs & Rationales: cbc bep DVT/Prophylaxis: mechanical, pharmacological
[2017-07-14 07:25] VITALS: BP 122/70
[2017-07-14 09:18] LABS: ABSOLUTE BASOPHIL COUNT 0 /CUMM (0.0-0.2); ABSOLUTE EOSINOPHIL COUNT 0.2 /CUMM (0.0-0.7); ABSOLUTE GRANULOCYTE CT 2.6 /CUMM (1.4-6.5); ABSOLUTE LYMPH COUNT 2.4 /CUMM (1.2-3.4); ABSOLUTE MONOCYTE COUNT 0.6 /CUMM (0.10-0.60); BASOPHIL % 0.7 % (0.0-2.0); EOSINOPHIL % 3.4 % (0-5); GRANULOCYTE % 44.8 % (42.2-75.2); HEMATOCRIT 33.4 % (37-47); MEAN CORPUSCULAR HGB 27.2 PG (27.0-31.0); MEAN CORPUSCULAR VOLUME 82.6 FL (81.0-99.0); MEAN PLATELET VOLUME 8.7 FL (7.4-10.4); PLATELET COUNT 299 /CUMM (130-400); RBC DISTRIBUTION WIDTH 15.6 % (11.5-14.5); RED BLOOD CELL CT 4.05 /CUMM (4.20-5.40); WHITE BLOOD CELL COUNT 5.9 /CUMM (4.8-10.8)
[2017-07-14 14:03] VITALS: BP 120/64
--- NOTE | 2017-07-14 16:35 | PN- Att Addend ---
Attending Addendum Attending Brief Note Attending MD Statement: examined this patient, discuss w/resident/PA/BURIAL VAULT SETTER, agreed w/resident/PA/BURIAL VAULT SETTER, discussed with nursing Attending Assessment/Plan: Patient is still complaining of pain this morning 9.5/10 (however appears very comfortable sitting in bed). If the patient is not eating anything by mouth the pain appears to be better however in order for the patient to eat she needs pain medications and is adamant to try eating without pain medications. Patient was started on AC & qHS, also was tried on hyoscamine, however patient has some vague side effects of weakness feeling tired and anxiety (apparently she read all the side effects of medication) and spoke to Dr. Simon before the medication was started. And discussed discharging the patient with pain medications and asking her to follow-up as an outpatient with Dr. Devlin at [place]. However considering the patient has been re-admitted frequently in the past, will consider transferring the patient to [place] for post bariatric surgery gastropathy. She does not be want to see bariatric surgeon in [facility]. Discussed with Dr. Simon. EGD done by Dr. Simon shows good healing of prior anastomotic ulcer noted in 06/09 EGD. Explanation of pain still unclear. May be spasmodic component. Dr. Jimenez wrote a letter for patient to go to her paint and table edger informing him that we will prescribe some pain medication at discharge, however she wishes to continue him following her pain as an outpatient. Patient changed from observation status to full admit. Patient will be transferred to [place] and discussed with transfer center in the AM.
[2017-07-14 22:27] VITALS: BP 110/68
[2017-07-15 06:52] VITALS: BP 112/78
--- NOTE | 2017-07-15 08:34 | PN- Housestaff ---
Torsten ASTUDILLO,Nena 07/15/17 0834: Subjective Follow-up For: Intractable abdominal pain status post gastric bypass surgery Healed anastomotic ulcer Subjective: Patient is seen and examined at bedside, continues to report abdominal pain of 8 /10 in severity which worsened after eating, reluctant to take the hyoscyamine Review of Systems Constitutional: Denies: no symptoms. Cardiovascular: Denies: no symptoms. Respiratory: Denies: no symptoms. Gastrointestinal: Reports: abdominal pain. Genitourinary: Denies: no symptoms. Musculoskeletal: Denies: no symptoms. Objective Last 24 Hrs of Vital Signs/I&O Vital Signs Date Time Temp Pulse Resp B/P B/P Pulse O2 O2 Flow FiO2 Mean Ox Delivery Rate 07/15 0652 98.6 69 18 112/78 97 07/14 2227 98.1 64 18 110/68 97 Room Air 07/14 1403 98.1 66 20 120/64 99 Room Air Intake & Output 07/15 1600 07/15 0800 07/15 0000 Intake Total 360 510 Output Total Balance 360 510 Intake, IV 150 Intake, Oral 360 360 Physical Exam General Appearance: Alert, Oriented X3, Cooperative, No Acute Distress HEENT: Atraumatic, PERRLA, EOMI, Mucous Membr. moist/pink Cardiovascular: Normal S1, Normal S2, No Murmurs Lungs: Clear to Auscultation Abdomen: Normal Bowel Sounds, Soft, mild epigastric tenderenss Extremities: No Clubbing, No Cyanosis, No Edema Vascular: Normal Pulses Assessment/Plan Assessment: 47 years old woman with past medical history of diabetes mellitus, gastric bypass surgery in 2017, chronic back pain, who presented to [place] ED for evaluation of epigastric pain and bloody streaked vomiting. Patient had recent gastric bypass surgery by Dr. Richards and since then she has been experiencing epigastric discomfort. She was seen by Dr. Simon in May, endoscopy was done which revealed a mild gastric ulcer (Marginal ulcer, in the area of protruding carlos)Biopsies showed chronic mild gastric ulcer, negative for metaplasia and Helicobacter pylori, patient was discharged last week and from [facility] for the same complaints of abdominal pain #Intaractable epigastric pain status post Maria Antonia-en-Y gastric bypass. H&H are stable close monitoring of her CBC. Patient had to be switched back to IV Dilaudid because of severe pain Continue clear liquid diet Started on oral omeprazole from IV Protonix. Continue sucralfate. Zofran for nausea. Patient needs to be transferred to [place] as per Dr. Simon recommendation to follow up with bariatric surgeon for prominent carlos and unexplained abdominal pain since her EGD was negative for any ulcers Need to approach Y-axis today for contacting Dr. Devlin at [place]. #Elevated alkaline phosphatase MRCP did not show any stones or obstruction #DM Accu-Cheks insulin sliding scale patient is currently not on any antidiabetic medication FC Clear liquid diet DVT prophylaxis with ALPS only Problem List: 1. Gastric bypass status for obesity 2. Ovarian cyst 3. Upper GI bleed 4. Intractable pain Pain Ratin Pain Location: Abdomen Pain Goal: Pain 4 or less Pain Plan: pathway Tomorrow's Labs & Rationales: cbc bep DVT/Prophylaxis: mechanical Kunal Jimenez MD 07/15/171928: Attending MD Review Statement Attending Statement Attending MD Statement: examined this patient, discuss w/resident/PA/SWITCH BOX INSTALLER, agreed w/resident/PA/SWITCH BOX INSTALLER, discussed with family, reviewed EMR data (avail), discussed with nursing, discussed with case mgmt, amended to note Attending Assessment/Plan: The patient was seen and discussed with house staff and family. The patient is requiring IV Dilaudid for pain control. States felt "anxious" after trying anti- spasmodic drugs. She will be transferred to [place] ([facility]) for bariatric surgery consult (Dr. Porfirio Devlin). Discussed with [place] Hospitalist- Y -Akanksha.
[2017-07-15 10:24] LABS: ABSOLUTE BASOPHIL COUNT 0 /CUMM (0.0-0.2); ABSOLUTE EOSINOPHIL COUNT 0.2 /CUMM (0.0-0.7); ABSOLUTE GRANULOCYTE CT 4.4 /CUMM (1.4-6.5); ABSOLUTE LYMPH COUNT 1.9 /CUMM (1.2-3.4); ABSOLUTE MONOCYTE COUNT 0.5 /CUMM (0.10-0.60); BASOPHIL % 0.6 % (0.0-2.0); EOSINOPHIL % 2.4 % (0-5); GRANULOCYTE % 62.3 % (42.2-75.2); MEAN CORPUSCULAR HGB 27.2 PG (27.0-31.0); MEAN CORPUSCULAR VOLUME 82.3 FL (81.0-99.0); MEAN PLATELET VOLUME 8.9 FL (7.4-10.4); PLATELET COUNT 305 /CUMM (130-400); RBC DISTRIBUTION WIDTH 15.6 % (11.5-14.5); RED BLOOD CELL CT 4.38 /CUMM (4.20-5.40)
--- NOTE | 2017-07-15 14:29 | Discharge Summary ---
See Addendum Visit Information Visit Dates Admission Date: 07/13/17 Discharge Date: 07/15/2017 Hospital Course Course Attending Physician: Dr. Kunal JIMENEZ Primary Care Physician: Dilcia Ahn MD Consulting Request: Consulting Specialty: Gastroenterology Hospital Course: Patient is a 47-year-old woman with past medical history significant for diabetes mellitus, gastric bypass surgery April 2017, chronic back pain presented to the ED for evaluation of bloody vomiting and epigastric pain. Patient is recently had a gastric bypass surgery in [address] Richards and since then patient has been having epigastric discomfort. She was seen by Dr. Simon in May and had a endoscopy done that showed chronic bile gastric ulcer biopsies were negative for metaplasia or Helicobacter pylori. Patient was recently kept in observation for 24 hours in [facility], for the similar complaints (07/06 to 07/07 ) and discharged, Since then patient has been having worsening epigastric pain, associated with vomiting blood. Patient could not able tolerate anything by mouth reported dizziness with lightheadedness. Problem list: 1-Severe epigastric pain with bloody vomiting likely upper GI bleed. 2-Elevated alkaline phosphatase 3-Status post gastric bypass April 2017 Hospital course: Patient was admitted to the general medicine floor, kept on full liquid diet without red or toast for possible EGD. We contact her bariatric surgeon Dr. Richards but the patient refused to be evaluated by him. Also he refused Dr. Catalan the GI to do her EGD. We will advance the patient diet regular diet, you manage her pain with 2 mg of IV Dilaudid every 4 as needed and 2 tablets of Percocet every 4 as needed. On the third day of admission she underwent upper GI endoscopy that did not showed any ulcer, followed reports see below. Also we obtain MRCP as recommended by Dr. Simon the longwall foreman that did not show any evidence of biliary obstruction. We start the patient on and Hyoscyamine that was recommended by the longwall foreman, the patient complained of from side effect and that she feels anxious and she cannot tolerate the medication so we discontinued these medication. Patient still complaining of severe epigastric pain especially after eating. Because of that patient will need a bariatric surgeon evaluation as recommended by the longwall foreman. After admission patient did not report any bloody vomiting. Imaging: EXAM TYPE: MRI - MRI-ABDOMEN EXAMINATION: MR CHOLANGIOPANCREATOGRAPHY/MR ABDOMEN WITHOUT CONTRAST CLINICAL INFORMATION: A 47-year-old female with gastritis, hematemesis, and abdominal pain. COMPARISON: CT of the abdomen and pelvis done on 07/05/2017. TECHNIQUE: Multiplanar, multisequential noncontrast MR images of the abdomen/MRCP is obtained. FINDINGS: LUNG BASES: Unremarkable. LIVER: No discrete focal intrahepatic abnormality is visualized. GALLBLADDER, BILIARY TREE: The gallbladder is surgically absent. There is minimal central intrahepatic biliary ductal prominence present which will be physiologic given the patient's history of cholecystectomy. The common bile duct shows progressive smooth distal tapering, measures between 0.6 to 0.9 cm, given the postcholecystectomy status, within normal limits. PANCREAS: Unremarkable on these nonenhanced images. SPLEEN: Unremarkable. ADRENAL GLANDS AND KIDNEYS: Unremarkable. URETERS AND BLADDER: Visualized part of both proximal ureters appear unremarkable. BOWEL LOOPS: Postsurgical changes are noted within the stomach. Previous CT-detected loculated fluid collection within the surgical bed is reidentified, currently measures approximately 2.9 cm at its maximum dimension, previously measured 3.5 cm on 07/05/2017, may represent resolving postoperative seroma. LYMPHOVASCULAR STRUCTURES: No pathologically enlarged lymphadenopathy is present. Mild thoracolumbar levoscoliosis and mild multilevel degenerative spondylosis-related changes are noted at lower lumbar spine. IMPRESSION: 1. No MR evidence of biliary obstruction. Note is made of minimal central intrahepatic and minimal extrahepatic biliary ductal dilatation. Given the surgical absence of gallbladder, the findings are within normal limits. 2. A 2.9 cm maximum dimension nonspecific fluid density is identified at the surgical bed around the stomach, previously measured 3.[address] study dated 07/05/2017, may represent resolving postoperative seroma. SERVICE DATE: 07/05/17 EXAM TYPE: CAT - CT ABD & PELVIS W ORAL & IV CO EXAMINATION: CT ABDOMEN AND PELVIS WITH CONTRAST CLINICAL INFORMATION: Abdominal pain. COMPARISON: CT abdomen pelvis dated 06/16/2017. TECHNIQUE: Multidetector volumetric imaging was performed of the abdomen and pelvis following IV administration of 95 mL of Omnipaque 300 intravenous contrast. Sagittal and coronal reformatted images were obtained on the technologist's workstation. DLP: 1069.99 mGy-cm FINDINGS: There are surgical changes status post gastric bypass. The previously identified fluid collection located immediately beneath the gastroenteric anastomosis is stable in size, measuring 3.5 x 2.6 cm. As stated previously this collection is nonspecific. It could represent a postoperative seroma. No bowel obstruction. LUNG BASES: The visualized lung bases are unremarkable. LIVER, GALLBLADDER, AND BILIARY TREE: The liver is normal in size, shape, and attenuation. No focal hepatic lesion or biliary ductal dilatation is present. The gallbladder is surgically absent. PANCREAS: Unremarkable. SPLEEN: Unremarkable. ADRENAL GLANDS: Unremarkable. KIDNEYS AND URETERS: The kidneys are normal in size, shape, and attenuation. No hydronephrosis, hydroureter, or calculi seen. No perinephric stranding. BLADDER: Unremarkable. ABDOMINAL WALL: No significant hernia is appreciated. LYMPH NODES: No lymphadenopathy. VASCULAR: Unremarkable. PELVIC VISCERA: The uterus is grossly normal. There is a 3.1 x 2.7 left ovarian cyst. OSSEOUS STRUCTURES: Unremarkable. IMPRESSION: There are surgical changes status post gastric bypass. The previously identified fluid collection located immediately beneath the gastroenteric anastomosis is stable in size, measuring 3.5 x 2.6 cm. As stated previously this collection is nonspecific. It could represent a postoperative seroma. Allergies: Coded Allergies: Benzodiazepines (Severe, SHAKES 10/26/16) chlorzoxazone (From LORZONE) (Severe, RESTLESSNESS 12/12/16) cyclobenzaprine (From FLEXERIL) (Severe, RESTLESSNESS 12/12/16) metoclopramide (From REGLAN) (Severe, TREMORS, SI, FEELING LIKE SHE WANTED TO CUT HER SKIN & RUN 10/27/16) carisoprodol (From SOMA) (Intermediate, RESTLESSNESS 12/12/16) albuterol (SHAKES 10/27/16) cefuroxime (From CEFTIN) (SHAKES 10/26/16) ciprofloxacin (From CIPRO) (SHAKES 10/26/16) clonazepam (From KLONOPIN) (SHAKES 10/27/16) codeine (SHAKES 10/26/16) guaifenesin (From CHERATUSSIN AC) (SHAKES 10/27/16) promethazine (SHAKES 10/26/16) tetanus and diphtheria toxoids (tetanus & diphtheria toxoids) (LOCAL REACTION TO SITE/SWELLING 11/30/15) prochlorperazine (From Compazine) (Severe, UNABLE TO KEEP STILL/HIGH ANXIETY 02/06) meperidine (From Demerol) (ANXIETY 11/30/15) morphine (SHAKES 07/10/17) Significant Procedures: Endoscopy Procedure Procedure Date: 07/12/17 Procedure Type: EGD Powerplant Operator: Tono Simon M.D. ASA Classification: III Indications: Refractory abdominal pain Recently diagnosed marginal ulcer (status post Maria Antonia-en-Y gastric bypass) Instrument: diagnostic gastroscope Meds Received: MAC Patient's Tolerance: good Complications: none Extent Reached: Maria Antonia-en-Y limb Procedure: The patient signed informed consent, and was medicated. Pulse oximetry, blood pressure and cardiac monitoring were performed continuously throughout the procedure. The Olympus high-definition gastroscope was inserted into the mouth and advanced to the Maria Antonia-en-Y limb. Careful examination was performed. Findings: The esophagus had normal caliber and contour. The mucosa was intact throughout. There were no varices. The GE junction at 40 cm was normal. The gastric pouch was normal. At the anastomosis there was some friability, but no residual ulceration. There were several protruding carlso. The mucosa and folds of the short blind efferent limb, and the long Maria Antonia-en-Y limb, were normal. Impression: * Healed marginal ulceration * Protruding anastomotic carlos Recommendations: * Continue PPI and sucralfate * Begin elixir prior to meals and at bedtime Pertinent Lab Results: Laboratory Tests 07/15 07/14 0940 0820 Chemistry Sodium (137 - 145 mmol/L) 142 Potassium (3.5 - 5.1 mmol/L) 3.7 Chloride (98 - 107 mmol/L) 107 Carbon Dioxide (22 - 30 mmol/L) 19 L Anion Gap (5 - 16) 15 BUN (7 - 17 mg/dL) 7 Creatinine (0.5 - 1.0 mg/dL) 0.5 Estimated GFR (>60 ml/min) > 60 BUN/Creatinine Ratio (7 - 25 %) 14.0 Hematology CBC w Diff NO MAN DIFF REQ NO MAN DIFF REQ WBC (4.8 - 10.8 /CUMM) 7.0 5.9 RBC (4.20 - 5.40 /CUMM) 4.38 4.05 L Hgb (12.0 - 16.0 G/DL) 11.9 L 11.0 L Hct (37 - 47 %) 36.0 L 33.4 L MCV (81.0 - 99.0 FL) 82.3 82.6 MCH (27.0 - 31.0 PG) 27.2 27.2 RDW (11.5 - 14.5 %) 15.6 H 15.6 H Plt Count (130 - 400 /CUMM) 305 299 MPV (7.4 - 10.4 FL) 8.9 8.7 Gran % (42.2 - 75.2 %) 62.3 44.8 Lymphocytes % (20.5 - 51.1 %) 27.2 41.4 Monocytes % (1.7 - 9.3 %) 7.5 9.7 H Eosinophils % (0 - 5 %) 2.4 3.4 Basophils % (0.0 - 2.0 %) 0.6 0.7 Absolute Granulocytes (1.4 - 6.5 /CUMM) 4.4 2.6 Absolute Lymphocytes (1.2 - 3.4 /CUMM) 1.9 2.4 Absolute Monocytes (0.10 - 0.60 /CUMM) 0.5 0.6 Absolute Eosinophils (0.0 - 0.7 /CUMM) 0.2 0.2 Absolute Basophils (0.0 - 0.2 /CUMM) 0 0 PUBS MCHC (33.0 - 37.0 G/DL) 33.0 33.0 01/20 0715 Chemistry Sodium (137 - 145 mmol/L) 141 Potassium (3.5 - 5.1 mmol/L) 3.7 Chloride (98 - 107 mmol/L) 107 Carbon Dioxide (22 - 30 mmol/L) 23 Anion Gap (5 - 16) 10 BUN (7 - 17 mg/dL) 7 Creatinine (0.5 - 1.0 mg/dL) 0.5 Estimated GFR (>60 ml/min) > 60 BUN/Creatinine Ratio (7 - 25 %) 14.0 Hematology CBC w Diff NO MAN DIFF REQ WBC (4.8 - 10.8 /CUMM) 6.8 RBC (4.20 - 5.40 /CUMM) 3.85 L Hgb (12.0 - 16.0 G/DL) 10.4 L Hct (37 - 47 %) 32.0 L MCV (81.0 - 99.0 FL) 83.2 MCH (27.0 - 31.0 PG) 27.1 RDW (11.5 - 14.5 %) 15.3 H Plt Count (130 - 400 /CUMM) 267 MPV (7.4 - 10.4 FL) 8.6 Gran % (42.2 - 75.2 %) 48.7 Lymphocytes % (20.5 - 51.1 %) 39.0 Monocytes % (1.7 - 9.3 %) 8.5 Eosinophils % (0 - 5 %) 3.1 Basophils % (0.0 - 2.0 %) 0.7 Absolute Granulocytes (1.4 - 6.5 /CUMM) 3.3 Absolute Lymphocytes (1.2 - 3.4 /CUMM) 2.7 Absolute Monocytes (0.10 - 0.60 /CUMM) 0.6 Absolute Eosinophils (0.0 - 0.7 /CUMM) 0.2 Absolute Basophils (0.0 - 0.2 /CUMM) 0 PUBS MCHC (33.0 - 37.0 G/DL) 32.6 L Disposition Summary Disposition Principal Diagnosis: 1-Severe epigastric pain with bloody vomiting likely upper GI bleed. Additional Diagnosis: 2-Elevated alkaline phosphatase 3-Status post gastric bypass April 2017 Discharge Disposition: [facility] ([facility] ) Discharge Instructions General Discharge Information Code Status: Full Code Patient's Diet: Regular diet Patient's Activity: As TOrelated Follow-Up Instructions/Appts: Please follow-up with your primary care doctor after discharge. Please follow-up with a longwall foreman after discharge. Medications at Discharge Discharge Medications: Continue taking these medications: Sucralfate (Carafate) 1 GRAM TABLET 1,000 Milligram ORAL 4 TIMES A DAY Qty = 90 Comments: Last Taken: 07/07/17 Time: 11 AM Oxycodone HCl/Acetaminophen (Percocet 5-325 MG Tablet) 5 MG-325 MG TABLET 2 Tablet ORAL EVERY SIX HOURS as needed for PAIN SCALE 4-6 (MODERATE) Qty = 30 Comments: Last Taken: 07/07/16 Time: 12:51 PM Pantoprazole Sodium (Pantoprazole Sodium) 40 MG TABLET.DR 1 Tablet ORAL TWICE DAILY Qty = 30 Instructions: . Comments: IV FORM ADMINISTERED Last Taken: 07/07/17 Time: 11AM Ondansetron HCl (Ondansetron HCl) 8 MG TABLET 1 Tablet ORAL THREE TIMES DAILY as needed for GI Qty = 20 Instructions: . Oxycodone HCl (Oxycodone HCl) 10 MG TABLET 1 Tablet ORAL THREE TIMES DAILY as needed for PAIN Multivitamin (Multi-Vitamin Daily) 1 EACH TABLET 1 Tablet ORAL DAILY Dexlansoprazole (Dexilant) 60 MG CAP. 1 Capsule ORAL DAILY Qty = 90 Acetaminophen (Acetaminophen) 500 MG TABLET 2 Tablet ORAL as needed for PAIN Start taking the following new medications: Cyanocobalamin (Vitamin B-12) 1,000 MCG TABLET 1,000 Microgram ORAL DAILY Qty = 30 No Refills Folic Acid (Folic Acid) 1 MG TABLET 1 Milligram ORAL DAILY Qty = 30 No Refills Thiamine HCl (Vitamin B-1) 100 MG TABLET 100 Milligram ORAL DAILY Qty = 30 No Refills Copies To: Aurora ASTUDILLO,Tono Purcell; Jimy ASTUDILLO,Dilcia Attending MD Review Statement Documenting Attending: Kunal Jimenez MD Other Findings: The patient was seen and discussed with house staff, nursing, case management and family. Being transferred to [place] ([place] [address] [id number]). Accepting Hospitalist Dr. Coon. Will need Bariatric Surgery consult there (prefers Dr. Porfirio Devlin suggested by Dr. Misa Simon of GI here ). She is requesting IV Dilaudid 2 mg prior to transport. Her pain specialist is also out of [facility] and may be consulted while there.
[2017-07-15 14:32] VITALS: BP 122/80
[2017-07-15] MEDS ORDERED: HYDROMORPHO2 MG/1 M3 IV (14:59)
[2017-07-15 15:21] VITALS: BP 122/80
== END 2017-07-15 19:50 | disposition short-term general hospital (02) | DRG 392 ==
LOC: ERH 23:44 → ERHI 07-10 05:04 → ERH 07-10 05:04 → ERHI 07-10 09:09 → 2NA 07-10 13:30 → ERHI 07-11 07:29 → ENRESERV 07-11 16:52 → ENTRNSPT 07-11 18:06 → EDTRNSPTSTS 07-11 18:07 → 2NA 07-11 18:57 → ERHI 07-11 18:57 → CMPTRNSPT 07-11 18:58 → ERHI 07-13 13:30 → 2NA 07-13 13:30
PROVIDERS: Pediatrics; Student in an Organized Health Care Education/Training Program
PROC: 0DJ08ZZ Inspection of Upper Intestinal Tract, Via Natural or Artificial Opening Endoscopic (ICD-10-PCS; principal; 2017-07-12)
DX: R10.13 Epigastric pain (principal); K92.2 Gastrointestinal hemorrhage, unspecified; R13.19 Other dysphagia; Z98.84 Bariatric surgery status; E11.9 Type 2 diabetes mellitus without complications; G89.29 Other chronic pain; N83.209 Unspecified ovarian cyst, unspecified side; M54.9 Dorsalgia, unspecified
CPT/HCPCS: 2NAP; 6030; 74181; ERO; 36415; 82436; 93005; 93010; 96374; 96375; G0378; J0131; J1644; J2405; J3490